=== PATIENT | male | born 1935 | race Caucasian/White ===

== ENCOUNTER → 2018-07-31 | Day surgery (SDC) | payer MEDICARE ==
[~2018-07-31] MED LIST: ALEVE220 MG PO; ALPHA LIPOIC ACID PO; ASA325 PO; ASPIR 8181 MG; ASPIRIN81 MG PO; CAPTOPRIL25 MG PO; CHLORTHALIDONE25 MG PO; FENTANYL CITRATE/PF 100MCG/2 ML INJ ONE; FISH OIL PO; FLUCONAZOLE100 MG PO; FUROSEMIDE40 MG PO; GABAPENTIN300 MG PO; GEMFIBROZIL600 MG PO; GLIMEPIRIDE2 MG PO; ICAPS TABLET1 EACH PO; LIDOCAINE HCL 2% LOCAL INJ 5 ML SDV VIAL INJ ONE; METOLAZONE2.5 MG PO; METOLAZONE5 MG PO; MULTIVITAMINS1 EAC7 PO; NITROSTAT0.4 MG SL; NRC7.5T PO; ONDN2V2 IV; PROPOFOL IV EMULSION 10 MG/ML 50 ML VIAL IV ONE; RANITIDINE HCL300 M1; ULTRAM 50MG50 MG PO; [UNRECOGNIZED DRUG - CODE] PO
--- OUTSIDE RECORDS SUMMARY | 2018-07-31 08:10 | XMS REPORT | Continuity of Care Document ---
Author Author [facility] Address Unknown Phone Unavailable Problems Problem Status Onset Date Classification Date Reported Comments Source DX: R07.2=PRECORDIAL PAIN DR RIVERA Active 05/02/2017 [facility] 782.3 - EDEMA Active 09/14/2013 [facility] [place] Arthritis Active Problem 05/17/2017 [facility] [place] Degenerative disc disease Active Problem 05/17/2017 [facility] [place] Diabetes mellitus Active Problem 05/17/2017 [facility] [place] Diabetic neuropathy Active Problem 05/17/2017 [facility] [place] Hypertension Active Problem 05/17/2017 [facility] [place] PRECORDIAL PAIN Active [facility] Medications Medication Details Route Status Patient Instructions Ordering Provider Order Date Source Allergies, Adverse Reactions, Alerts Substance Category Reaction Severity Reaction type Status Date Reported Comments Source Immunizations Immunization Date Given Site Status Last Updated Comments Source Results Order Name Results Value Reference Range Date Interpretation Comments Source Cardiac SPECT multi studies NM Cardiac SPECT multi studies NM Cardiac SPECT multi studies NM CLINICAL HISTORY: - chest pain; TECHNIQUE: 10 mCis of Technetium 99m Cardiolite were administered for the stress portion of the examination and 30 mCis for the resting study. The patient was given 0.4 mg of IV Lexiscan for the stress portion of the study FINDINGS: The SPECT images demonstrate very large defect involving the inferior wall of the left ventricle. There is some mild reversibility noted at the border of the inferior wall and the apex and the lateral wall. Most of the defect remains fixed on the resting images. CARDIAC PERFUSION STUDY: FINDINGS: The gated examination demonstrates severe inferior wall hypokinesis. The end-diastolic volume is estimated at 146 ml with end-systolic volume at 79 ml. The ejection fraction is calculated at 46 % . IMPRESSION: Largely fixed large defect is present in the inferior wall of left ventricle. There is minimal to mild reversibility at the border of the inferior wall and the apex and the lateral wall. Severe hypokinesis, inferior wall of left ventricle. SL: [id number] 05/14/2017 - - Read by: Cleve Mcguire MD Dictated Date/time: 05/14/17 16:44 Electronically Signed by: Cleve Mcguire MD 05/14/17 16:50 FINAL REPORT [facility] Abdominal Aorta with runoff CTA Abdominal Aorta with runoff CTA ABDOMEN/PELVIS/LOWER EXTREMITY CTA CLINICAL HISTORY: Peripheral vascular disease, unspecified circulatory system disorder, and bilateral lower extremity swelling. COMPARISON IMAGING: None. TECHNIQUE: Pre- and postcontrast volumetric images were obtained before and after the administration of intravenous contrast. Postcontrast images were acquired during the arterial phase. Data are displayed in multiplanar, volumetric, and MIP reconstructions DLP is 1887 mGy-cm. FINDINGS: Aorta: Mild multifocal calcified plaque extends throughout the aorta. There is no aortic aneurysm, dissection, or hemodynamically significant stenosis. A focal calcified plaque at the origin of the right renal artery narrows the lumen by approximately 40 to 50%. This is considered nonhemodynamically significant. The celiac axis, SMA, MONY, and left renal arteries are patent. RLE: Minimal to mild multifocal calcified plaque extends throughout the common iliac, external iliac, hypogastric, and common femoral arteries. Mild, calcified, multifocal and segmental plaque extends throughout the SFA. There is a severe focal mixed plaque in the mid popliteal artery that results in approximately 80 to 90% luminal narrowing. Severe mixed atherosclerotic plaque extends throughout all 3 runoff vessels. The posterior tibial artery is likely occluded just a few cm past its origin. Dorsalis pedis artery is patent. LLE: Minimal to mild multifocal calcified plaque is again noted throughout the common iliac, external iliac, hypogastric, and common femoral arteries. Mild mixed plaque is present throughout the SFA, less severe than seen on the right. Multifocal mixed plaque is noted throughout the popliteal artery, narrowing it by approximately 70% in its midportion. Runoff vessels demonstrate similar findings as those on the right. Nonvascular: Lung bases are clear. Liver, spleen, pancreas, right adrenal gland, and right kidney are unremarkable. There is a 10 mm nodule in the left adrenal gland and a 1.8 cm low-density lesion in the upper pole of left kidney. Neither of these are completely characterized on this exam. Dedicated CT imaging with and without contrast could be considered for further evaluation. Severe degenerative changes are seen throughout the spine. IMPRESSION: 1. Hemodynamically significant stenoses in both popliteal arteries. 2. Severe atherosclerotic disease throughout the runoff vessels of both calves. 3. Nonhemodynamically significant narrowing of the origin of the right renal artery. 3. Left adrenal nodule and left kidney lesion, incompletely characterized on this exam. 10/21/2013 - - Read by: Alexis Wooten Dictated Date/time: 10/21/13 13:39 Electronically Signed by: Alexis Wooten MD 10/21/13 14:17 FINAL REPORT LILIA Chea Extremity lower venous doppler bilat US Extremity lower venous doppler bilat US Exam: Bilateral lower extremity Doppler venous ultrasound. Reason for Exam: Pain and swelling Comparison Exam: None Discussion: Real-time grayscale, color Doppler imaging, and spectral waveform analysis was performed of the bilateral lower extremity deep venous system. There are no filling defects or lack of compressibility seen within the deep venous systems to suggest DVT. The waveforms are within normal limits and respond appropriately to augmentation. Impression: 1. Negative bilateral lower extremity Doppler venous ultrasound for DVT. 09/30/2013 - - Read by: Homer Erickson Dictated Date/time: 09/30/13 09:07 Electronically Signed by: Homer Erickson MD 09/30/13 09:07 FINAL REPORT LILIA [place] Extremity lower art Dopp bilat US w/o press Extremity lower art Dopp bilat US w/o press Bilateral lower extremity arterial Doppler, 09/30/2013. HISTORY: Bilateral leg numbness, pain and swelling. Diabetes mellitus, hypertension. Right lower extremity are Doppler demonstrates triphasic waveform in the right common femoral artery with peak systolic velocity of 82 cm/sec, raising the possibility of a right inflow stenosis. Heterogeneous plaque noted in the right superficial femoral artery with mild Doppler frequency shift to 146 cm/sec in the proximal right superficial femoral artery suggesting mild stenosis. Normal triphasic waveforms noted in the mid and distal right superficial femoral artery. Spectral broadening noted in the right popliteal artery without Doppler frequency shift. Dampened monophasic flow noted in the right anterior tibial artery with Doppler measurement of 31 cm/sec with mild increased flow velocity noted in the right dorsalis pedis artery. Spectral broadening without significant stenosis in the right posterior tibial artery. Left lower extremity arterial Doppler demonstrates triphasic waveform with reduced flow velocity of 74 cm/sec in the left common femoral artery suggesting inflow stenosis. Heterogeneous plaque noted in the left superficial femoral artery. Triphasic waveforms noted in the left superficial femoral artery and left popliteal artery without significant stenosis. Low velocity monophasic flow noted in the left posterior tibial artery with normal velocity flow noted in the left anterior tibial artery and left dorsalis pedis artery without Doppler frequency shift. CONCLUSION: Mildly reduced flow velocities in both common femoral arteries raise the possibility of inflow stenosis (bilateral aortoiliac disease). Mild bilateral lower extremity peripheral arterial disease, infrapopliteal predominant involving right anterior tibial artery and left posterior tibial artery. If renal function permits, recommend CTA of aorta with runoff. 09/30/2013 - - Read by: Jonathan Deleon Dictated Date/time: 09/30/13 09:26 Electronically Signed by: Jonathan Deleon MD 09/30/13 09:45 FINAL REPORT LILIA Mena Vital Signs Vital Sign Value Date Comments Source Height 182.88 cm 05/14/2017 [facility] BMI Calculated 32.62 05/14/2017 [facility] Weight 109.091 05/14/2017 [facility] Encounters Location Location Details Encounter Type Encounter Number Reason For Visit Attending Provider ADM Date DC Date Status Source OD [id number] 782.3 - EDEMA GRICELDA PEARCE 09/30/2013 09/30/2013 Active LILIA Mena [facility] Outpatient [id number] Leia Rivera Jr 05/14/2017 05/15/2017 [facility] Procedures Procedure Code Date Perfomer Comments Source Open reduction and fixation of fracture [id number] [facility] Open reduction and fixation of fracture<sup>1</sup> 832886669 as child [facility]
--- OUTSIDE RECORDS SUMMARY | 2018-07-31 08:10 | XMS REPORT | CCD ---
Author Author Auto Generated Organization [facility] [place] Address Unknown Phone Unavailable Care Team Providers Care Psychiatric Assistant Name Role Phone Davis Bryant CP Allergies, Adverse Reactions, Alerts Substance Reaction Status NKDA Active Problem List Condition Effective Dates Status Arthritis Active Degenerative disc disease Active Diabetes mellitus Active Diabetic neuropathy Active Hypertension Active
--- OUTSIDE RECORDS SUMMARY | 2018-07-31 08:10 | XMS REPORT | CCD ---
Author Author Auto Generated Organization [facility] [place] Address Unknown Phone Unavailable Care Team Providers Care Electro Winning Operator Name Role Phone Davis Bryant CP Allergies, Adverse Reactions, Alerts Substance Reaction Status NKDA Active Problem List Condition Effective Dates Status Arthritis Active Degenerative disc disease Active Diabetes mellitus Active Diabetic neuropathy Active Hypertension Active
--- OUTSIDE RECORDS SUMMARY | 2018-07-31 08:10 | XMS REPORT | Summary of Care ---
Author Author [facility] Organization [facility] Address Unknown Phone Unavailable Encounter HQ Leo(CHIQUITA) [id number] Date(s): 05/14/17 - 05/14/17 [facility] [address] [place] [address]- [phone] Discharge Disposition: Home or Self Care Attending Physician: Leia Munguia DO Referring Physician: Leia Munguia DO Vital Signs Most recent to 1 oldest [Reference Range]: Height 182.88 cm (05/14/17 9:12 AM) Weight 109.091 kg (05/14/17 9:12 AM) Body Mass Index 32.62 m2 (05/14/17 9:12 AM) Problem List Condition Effective Dates Status Health Status Informant Arthritis(Confirmed) Active Degenerative disc Active disease(Confirmed) Diabetes Active mellitus(Confirmed) Diabetic Active neuropathy(Confirmed ) Hypertension(Confirm Active ed) Allergies, Adverse Reactions, Alerts Substance Reaction Severity Status NKDA Active Medications No data available for this section Results No data available for this section Immunizations No data available for this section Procedures Procedure Date Related Diagnosis Body Site Open reduction and fixation of fracture Open reduction and fixation of fracture1 1as child Social History No data available for this section Assessment and Plan No data available for this section
[2018-07-31 09:19] LABS: BASOPHILS % 0.4 % (0.0-1.0); EOSINOPHILS # (AUTO) 0.2 (0.0-0.4); EOSINOPHILS % 2.6 % (0.0-6.0); HEMATOCRIT 34.2 % (38.2-49.6); HEMOGLOBIN 11.7 g/dL (14.0-18.0); LYMPHOCYTES # (AUTO) 0.8 (1.0-3.2); LYMPHOCYTES % 10.6 % (18.0-39.1); MEAN CORPUSCULAR HEMOGLOBIN 30.8 pg (28-32); MEAN CORPUSCULAR HGB CONC 34.2 g/dL (31-35); MONOCYTES % 12.7 % (4.4-11.3); NEUTROPHILS # (AUTO) 5.7 (2.1-6.9); NEUTROPHILS % 72.2 % (38.7-80.0); PLATELET COUNT 263 x10e3/uL (140-360); RED CELL DISTRIBUTION WIDTH 13.8 % (11.7-14.4)
[2018-07-31 10:45] VITALS: BP 145/79
== END | disposition home or self-care (01) ==
LOC: OR 08:08
PROVIDERS: ATTEND Internal Medicine Gastroenterology
DX: K29.70 Gastritis, unspecified, without bleeding (principal); K31.89 Other diseases of stomach and duodenum; Z71.3 Dietary counseling and surveillance; R63.4 Abnormal weight loss; E11.9 Type 2 diabetes mellitus without complications; E66.3 Overweight; I10 Essential (primary) hypertension; I44.0 Atrioventricular block, first degree; Z79.82 Long term (current) use of aspirin; Z79.84 Long term (current) use of oral hypoglycemic drugs; Z68.28 Body mass index [BMI] 28.0-28.9, adult; Z87.891 Personal history of nicotine dependence
CPT/HCPCS: 36415; 43239; 82948; 85025; 88305; 88312; 93005; J2001

== ENCOUNTER 2019-05-17 14:22 | Inpatient (IN) | payer MEDICARE ==
[~2019-05-17] VITALS: Ht 185.4 cm; Wt 106.6 kg
[~2019-05-17 14:22] MED LIST changes: -FENTANYL CITRATE/PF 100MCG/2 ML INJ ONE; -LIDOCAINE HCL 2% LOCAL INJ 5 ML SDV VIAL INJ ONE; -PROPOFOL IV EMULSION 10 MG/ML 50 ML VIAL IV ONE
--- OUTSIDE RECORDS SUMMARY | 2019-05-17 14:26 | XMS REPORT | Continuity of Care Document ---
Author Author [facility] Address Unknown Phone Unavailable Care Team Providers Care Global Project Manager Name Role Phone [employer] Information [employer] Unavailable Unavailable Problems Problem Status Onset Date Classification Date Reported Comments Source DX: R07.2=PRECORDIAL PAIN DR RIVERA Active 05/02/2017 [facility] 782.3 - EDEMA Active 09/14/2013 [facility] [place] Arthritis (disorder) Active Problem 05/17/2017 [facility] [place] Degeneration of intervertebral disc (disorder) Active Problem 05/17/2017 [facility] [place] Diabetes mellitus (disorder) Active Problem 05/17/2017 [facility] [place] Diabetic neuropathy (disorder) Active Problem 05/17/2017 [facility] [place] Hypertensive disorder, systemic arterial (disorder) Active Problem 05/17/2017 [facility] [place] PRECORDIAL PAIN Active [facility] Medications No Data Provided for This Section Allergies, Adverse Reactions, Alerts No Known Medication Allergies Immunizations No Data Provided for This Section Results No Data Provided for This Section Pathology Reports No Data Provided for This Section Diagnostic Reports Report Value Date Source Cardiac SPECT multi studies NM Cardiac [...] hypokinesis, inferior wall of left ventricle. SL: [id number] 05/14/2017 [facility] Abdominal Aorta with runoff CTA ABDOMEN/PELVIS/LOWER EXTREMITY [...] lesion, incompletely characterized on this exam. 10/21/2013 JESIKA Mena Extremity lower venous doppler bilat US Exam: [...] extremity Doppler venous ultrasound for DVT. 09/30/2013 LILIA Mena Extremity lower art Dopp bilat US w/o [...] recommend CTA of aorta with runoff. 09/30/2013 LILIA Mena Consultation Notes No Data Provided for This Section Discharge Summaries No Data Provided for This Section History and Physicals No Data Provided for This Section Vital Signs Vital Sign Value Date Comments Source Height 182.88 cm 05/14/2017 [facility] BMI Calculated 32.62 05/14/2017 [facility] Weight 109.091 05/14/2017 [facility] Encounters Location Location Details Encounter Type Encounter Number Reason For Visit Attending Provider ADM Date DC Date Status Source OD [id number] 782.3 - EDEMA GRICELDA PEARCE 09/30/2013 09/30/2013 Active LILIA Mena [facility] Outpatient [id number] Leia Rivera Jr 05/14/2017 05/15/2017 [facility] Procedures Procedure Code Date Perfomer Comments Source Open reduction and fixation of fracture [id number] [facility] Open reduction and fixation of fracture<sup>1</sup> 571365368 as child [facility] Assessment and Plan No Data Provided for This Section Plan of Care No Data Provided for This Section Social History Social History Date Source No data available for this section 05/15/2017 [facility] Family History No Data Provided for This Section Advance Directives No Data Provided for This Section Functional Status No Data Provided for This Section
--- OUTSIDE RECORDS SUMMARY | 2019-05-17 14:27 | XMS REPORT | Continuity of Care Document ---
Author Author [employer] Address Unknown Phone Unavailable Care Team Providers Care Color Specialist Name Role Phone [employer] Unavailable Unavailable Problems Problem Status Onset Date Classification Date Reported Comments Source DX: R07.2=PRECORDIAL PAIN DR RIVERA Active 05/02/2017 [facility] 782.3 - EDEMA Active 09/14/2013 [facility] [place] Arthritis (disorder) Active Problem 05/17/2017 [facility] [place] Degeneration of intervertebral disc (disorder) Active Problem 05/17/2017 [facility] [place] Diabetes mellitus (disorder) Active Problem 05/17/2017 [facility] [place] Diabetic neuropathy (disorder) Active Problem 05/17/2017 [facility] [place] Hypertensive disorder, systemic arterial (disorder) Active Problem 05/17/2017 [facility] [place] PRECORDIAL PAIN Active [facility] Medications No Data Provided for This Section [...] hypokinesis, inferior wall of left ventricle. SL: [id number] 05/14/2017 [facility] Abdominal Aorta with runoff CTA [...] Date Comments Source Height 182.88 cm 05/14/2017 [facility] BMI Calculated 32.62 05/14/2017 [facility] Weight 109.091 05/14/2017 [facility] Encounters Location Location Details Encounter Type Encounter Number Reason For Visit Attending Provider ADM Date DC Date Status Source OD [id number] 782.3 - EDEMA GRICELDA PEARCE 09/30/2013 09/30/2013 Active LILIA Mena [facility] Outpatient [id number] Leia Rivera Jr 05/14/2017 05/15/2017 [facility] Procedures Procedure Code Date Perfomer Comments Source Open reduction and fixation of fracture [id number] [facility] Open reduction and fixation of fracture<sup>1</sup> 146650830 as child [facility] Assessment and Plan No Data Provided for This Section Plan of Care No Data Provided for This Section Social History Social History Date Source No data available for this section 05/15/2017 [facility] Family History No Data Provided for This Section Advance Directives No Data Provided for This Section Functional Status No Data Provided for This Section
[2019-05-17 15:08] LABS: BASOPHILS # (AUTO) 0.1 (0.0-0.1); BASOPHILS % 0.6 % (0.0-1.0); EOSINOPHILS # (AUTO) 0.2 (0.0-0.4); EOSINOPHILS % 1.8 % (0.0-6.0); HEMATOCRIT 38.7 % (38.2-49.6); HEMOGLOBIN 13.1 g/dL (14.0-18.0); LYMPHOCYTES # (AUTO) 1.1 (1.0-3.2); LYMPHOCYTES % 12.8 % (18.0-39.1); MEAN CORPUSCULAR HEMOGLOBIN 29.8 pg (28-32); MEAN CORPUSCULAR HGB CONC 33.9 g/dL (31-35); MEAN CORPUSCULAR VOLUME 88.2 fL (81-99); MONOCYTES # (AUTO) 1.2 (0.2-0.8); MONOCYTES % 14.9 % (4.4-11.3); NEUTROPHILS # (AUTO) 5.6 (2.1-6.9); NEUTROPHILS % 68.3 % (38.7-80.0); PLATELET COUNT 231 x10e3/uL (140-360); RED BLOOD COUNT 4.39 x10e6/uL (4.3-5.7); RED CELL DISTRIBUTION WIDTH 14.1 % (11.7-14.4)
[2019-05-17 15:18] LABS: INR 0.98; PROTHROMBIN TIME 13.5 seconds (11.9-14.5)
[2019-05-17 15:26] LABS: ALBUMIN 3.7 g/dL (3.5-5.0); ALBUMIN/GLOBULIN RATIO 1.1 (0.8-2.0); CALCIUM 9.7 mg/dL (8.4-10.2); CREATININE, SERUM 1.95 mg/dL (0.72-1.25)
[2019-05-17] MEDS ORDERED: SODIUM CHLORIDE 0.9% 1000ML 1,000 ML IV STA (15:28)
[2019-05-17 15:32] LABS: CREATINE KINASE MB 1.1 ng/mL (0-5.0)
[2019-05-17] MEDS ORDERED: SODIUM CHLORIDE 0.9% 1000ML 1,000 ML ONE (15:35)
[2019-05-17 15:39] LABS: B-TYPE NATRIURETIC PEPTIDE2 158.3 pg/mL (0-100)
--- NOTE | 2019-05-17 15:43 | Diagnostic Imaging Report ---
Examination: Single AP view of the chest. COMPARISON: None. INDICATION: Cellulitis IMPRESSION: 1. Lines and Tubes: None 2. Lungs are well-inflated. Elevation of the right hemidiaphragm, which may be due to eventration. Mild atelectatic changes in the right lower lobe. No consolidation or pulmonary edema. 3-4 mm rounded radiopaque densities in the right upper lobe may represent pulmonary nodules or calcified granulomas. Prior films, if available, would be helpful for comparison. If no prior films can be obtained, recommend follow-up chest PA and lateral in 3 months to document stability. 3. Cardiomediastinal silhouette is normal. Mild central congestion. 4. No acute bony abnormalities. Signed by: Dr. Jimmie Macdonald M.D. on 05/17/2019 3:39 PM
[2019-05-17] MEDS: VANCOMYCIN 1GM/NS 250 ML 250 ML IV SCH (15:48)
[2019-05-17] MEDS ORDERED: ONDANSETRON HCL INJ 2MG/ML 2ML 2 MG/ML VIAL IV PRN (16:30)
[2019-05-17] MEDS ORDERED: ACETAMINOPHEN 325 MG TAB PO PRN (16:30)
[2019-05-17] MEDS ORDERED: SODIUM CHLORIDE 0.9% 1000ML 1,000 ML IV ONE (16:30)
[2019-05-17] MEDS ORDERED: DEXTROSE 50% SYRINGE 50 ML IV PRN (16:30)
[2019-05-17] MEDS ORDERED: DOXAZOSIN MESYLA2 MG PO (16:48)
[2019-05-17] MEDS ORDERED: ISOSORBIDE MONO60 MG PO (16:48)
[2019-05-17] MEDS ORDERED: ULTRAM50 MG PO (16:48)
[2019-05-17] MEDS ORDERED: UNISOM SLEEP AI25 MG PO (16:48)
[2019-05-17] MEDS ORDERED: GLIMEPIRIDE2 MG PO (16:48)
[2019-05-17] MEDS ORDERED: METFORMIN HCL500 M2 PO (16:48)
[2019-05-17] MEDS ORDERED: METHOCARBAMOL750 MG PO (16:48)
[2019-05-17] MEDS ORDERED: LIOTHYRONINE SO5 MCG PO (16:48)
[2019-05-17] MEDS ORDERED: AREDS PO (16:48)
[2019-05-17 16:52] LABS: BILIRUBIN,URINE NEGATIVE (NEGATIVE); CLARITY,URINE CLEAR (CLEAR); COLOR,URINE YELLOW (YELLOW); KETONES,URINE NEGATIVE (NEGATIVE); LEUKOCYTE ESTERASE ,URINE NEGATIVE (NEGATIVE); NITRITE,URINE NEGATIVE (NEGATIVE); PROTEIN,URINE DIPSTICK NEGATIVE (NEGATIVE); URINE UROBILINOGEN 0.2 mg/dL (0.2 - 1)
--- OUTSIDE RECORDS SUMMARY | 2019-05-17 16:56 | XMS REPORT ---
Author [facility] Address Unknown Phone Unavailable Care Team Providers Care Dredge Pump Operator Name Role Phone [employer] JACKSON Unavailable Unavailable Problems This patient has no known problems. Allergies, Adverse Reactions, Alerts This patient has no known allergies or adverse reactions. Medications This patient has no known medications. Results Test Description Test Time Test Comments Text Results Atomic Results Result Comments CHEST SINGLE (PORTABLE) 2019-05-17 15:35:00 [facility] [address] [place] [address] Patient Name: PASCUAL WHALEN MR #: [id number] : 1935 Age/Sex: 83/M Req #: [id number] Adm Physician: Ordered by: MONTSE CHI FINANCIAL ADVOCATE Report #: [id number] Location: ER Room/Bed: Procedure: [id number] DX/CHEST SINGLE (PORTABLE) Exam Date: 05/17/19 Exam Time: 1510 REPORT STATUS: Signed Examination: Single AP view of the chest. CO MPARISON: None. INDICATION: Cellulitis IMPRESSION: 1. Lines and Tubes: None 2. Lungs are well-inflated. Elevation of the right hemidiaphragm, which may be due to eventration. Mild atelectatic changes in the right lower lobe. No consolidation or pulmonary edema. 3-4 mm rounded radiopaque densities in the right upper lobe may represent pulmonary nodules or calcified granulomas. Prior films, if available, would be helpful for comparison. If no prior films can be obtained, recommend follow-up chest PA and lateral in 3 months to document stability. 3. Cardiomediastinal silhouette is normal. Mild central congestion. 4. No acute bony abnormalities. Signed by: Dr. Rei Macdonald M.D. on 05/17/2019 3:39 PM Dictated By: REI MACDONALD MD [id number] Transcribed By: SHOBHA on 05/17/19 1539 COPY TO: MONTSE CHI NP
--- OUTSIDE RECORDS SUMMARY | 2019-05-17 16:56 | XMS REPORT | Continuity of Care Document ---
Author Author [employer] Address Unknown Phone Unavailable Care Team Providers Care Combination Window Installer Name Role Phone [employer] Information [employer] Unavailable Unavailable Problems Problem Status Onset Date Classification Date Reported Comments Source DX: R07.2=PRECORDIAL PAIN DR RIVERA Active 05/02/2017 [facility] 782.3 - EDEMA Active 09/14/2013 [facility] [place] Arthritis (disorder) Active Problem 05/17/2017 [facility] [place] Degeneration of intervertebral disc (disorder) Active Problem 05/17/2017 [facility] [place] Diabetes mellitus (disorder) Active Problem 05/17/2017 [facility] [place] Diabetic neuropathy (disorder) Active Problem 05/17/2017 [facility] [place] Hypertensive disorder, systemic arterial (disorder) Active Problem 05/17/2017 [facility] [place] PRECORDIAL PAIN Active [facility] Medications No Data Provided for This Section [...] hypokinesis, inferior wall of left ventricle. SL: [id number] 05/14/2017 [facility] Abdominal Aorta with runoff CTA [...] Date Comments Source Height 182.88 cm 05/14/2017 [facility] BMI Calculated 32.62 05/14/2017 [facility] Weight 109.091 05/14/2017 [facility] Encounters Location Location Details Encounter Type Encounter Number Reason For Visit Attending Provider ADM Date DC Date Status Source OD [id number] 782.3 - EDEMA GRICELDA PEARCE 09/30/2013 09/30/2013 Active LILIA Mena [facility] Outpatient [id number] Leia Rivera Jr 05/14/2017 05/15/2017 [facility] Procedures Procedure Code Date Perfomer Comments Source Open reduction and fixation of fracture [id number] [facility] Open reduction and fixation of fracture<sup>1</sup> 777815278 as child [facility] Assessment and Plan No Data Provided for This Section Plan of Care No Data Provided for This Section Social History Social History Date Source No data available for this section 05/15/2017 [facility] Family History No Data Provided for This Section Advance Directives No Data Provided for This Section Functional Status No Data Provided for This Section
[2019-05-17 17:04] LABS: BACTERIA,URINE RARE /HPF; EPITHELIAL CELLS,URINE RARE /LPF; RBC,URINE 0-5 /HPF (0-5); WBC,URINE (MAN) 0-5 /HPF (0-5)
[2019-05-17] MEDS: INSULIN LISPRO 100 UNIT/1 ML 3ML VIAL SQ SCH ×2 (17:07→20:40)
[2019-05-17 17:56] VITALS: BP 159/77
[2019-05-17] MEDS: PIPERACILLIN/TAZO 2.25 GM 50 ML IV SCH ×2 (18:00→23:51)
[2019-05-17 18:01] VITALS: BP 159/77
[2019-05-17 20:00] VITALS: BP 133/65
[2019-05-17 20:32] VITALS: BP 133/65
[2019-05-17] MEDS ORDERED: FUROSEMIDE 40 MG TAB PO ONE (21:00)
[2019-05-17] MEDS ORDERED: METFORMIN HCL 850 MG TAB PO ONE (21:00)
[2019-05-17] MEDS ORDERED: GEMFIBROZIL 600 MG TAB PO SCH (21:00)
[2019-05-17] MEDS ORDERED: GABAPENTIN 300 MG CAP PO ONE (21:15)
[2019-05-17] MEDS: DOXAZOSIN MESYLATE 2 MG TAB PO SCH (21:26)
[2019-05-17] MEDS: METHOCARBAMOL 750 MG TAB PO SCH (21:26)
[2019-05-17] MEDS ORDERED: PIPER-TAZ 3.375 GM 50 ML IV SCH (22:00)
[2019-05-17 22:18] VITALS: BP 133/65
[2019-05-17] MEDS: TRAMADOL HCL 50 MG TAB PO PRN (22:51)
[2019-05-18] VITALS (10 sets, daily range): BP systolic 122–153; BP diastolic 60–87
[2019-05-18] MEDS: PIPERACILLIN/TAZO 2.25 GM 50 ML IV SCH ×3 (04:23→18:20)
[2019-05-18] MEDS: FUROSEMIDE 40 MG TAB PO SCH ×2 (04:23→17:20)
--- NOTE | 2019-05-18 04:24 | NUR ---
PATIENT REFUSED TO TAKE HIS LASIX STATING HE'S PEEING TOO MUCH ALREADY.
[2019-05-18 05:29] LABS: BASOPHILS % 0.5 % (0.0-1.0); EOSINOPHILS # (AUTO) 0.2 (0.0-0.4); EOSINOPHILS % 2.7 % (0.0-6.0); HEMATOCRIT 34.2 % (38.2-49.6); HEMOGLOBIN 11.4 g/dL (14.0-18.0); LYMPHOCYTES % 12.2 % (18.0-39.1); MEAN CORPUSCULAR HEMOGLOBIN 29.7 pg (28-32); MEAN CORPUSCULAR HGB CONC 33.3 g/dL (31-35); MEAN CORPUSCULAR VOLUME 89.1 fL (81-99); MONOCYTES % 12.8 % (4.4-11.3); NEUTROPHILS # (AUTO) 5.7 (2.1-6.9); NEUTROPHILS % 70.1 % (38.7-80.0); PLATELET COUNT 201 x10e3/uL (140-360); RED BLOOD COUNT 3.84 x10e6/uL (4.3-5.7); RED CELL DISTRIBUTION WIDTH 14.2 % (11.7-14.4)
[2019-05-18 05:48] LABS: ANION GAP 12.9 mmol/L (8-16); CALCIUM 8.6 mg/dL (8.4-10.2); CREATININE, SERUM 1.43 mg/dL (0.72-1.25)
[2019-05-18 05:53] LABS: POTASSIUM 2.9 mmol/L (3.5-5.1)
[2019-05-18] MEDS ORDERED: POTASSIUM CHLORIDE 20 MEQ TAB CR PO ONE ×2 (06:30→10:00)
[2019-05-18] MEDS: INSULIN LISPRO 100 UNIT/1 ML 3ML VIAL SQ SCH ×4 (08:00→20:43)
[2019-05-18] MEDS: GLIMEPIRIDE 2 MG TAB PO SCH (09:04)
[2019-05-18] MEDS: METOLAZONE 5 MG TAB PO SCH (09:04)
[2019-05-18] MEDS: ISOSORBIDE MONONITRATE 30 MG TAB CR PO SCH (09:04)
[2019-05-18] MEDS: ASPIRIN 81 MG CHEW TAB PO SCH (09:04)
[2019-05-18] MEDS: GEMFIBROZIL 600 MG TAB PO SCH ×2 (09:04→17:20)
[2019-05-18] MEDS: GABAPENTIN 300 MG CAP PO SCH ×2 (09:04→17:20)
[2019-05-18] MEDS: METFORMIN HCL 500 MG TAB PO SCH ×2 (09:05→17:20)
--- NOTE | 2019-05-18 11:27 | NUR ---
PREFERS INPATIENT REHAB IF DOESNT QUALIFY FOR THAT HE WANTS TO GO HOME WITH HOME HEALTH FOR THERAPY TO COME TO HOUSE
--- NOTE | 2019-05-18 11:28 | NUR ---
DAUGHTER GALE QUIROS TO REACH IF NOT HERE IS [phone]
[2019-05-18] MEDS: VANCOMYCIN 1GM/NS 250 ML 250 ML IV SCH (14:50)
[2019-05-18] MEDS: METHOCARBAMOL 750 MG TAB PO SCH (20:43)
[2019-05-18] MEDS: DOXAZOSIN MESYLATE 2 MG TAB PO SCH (20:43)
[2019-05-19] VITALS (7 sets, daily range): BP systolic 120–142; BP diastolic 63–74
[2019-05-19] MEDS: PIPERACILLIN/TAZO 2.25 GM 50 ML IV SCH ×4 (00:03→17:30)
[2019-05-19 05:43] LABS: ALBUMIN 3.3 g/dL (3.5-5.0); ALBUMIN/GLOBULIN RATIO 1.1 (0.8-2.0); ANION GAP 13.2 mmol/L (8-16); CALCIUM 9.3 mg/dL (8.4-10.2); CREATININE, SERUM 1.24 mg/dL (0.72-1.25); MAGNESIUM 1.9 MG/DL (1.3-2.1); POTASSIUM 3.2 mmol/L (3.5-5.1)
[2019-05-19] MEDS: FUROSEMIDE 40 MG TAB PO SCH ×2 (05:44→17:30)
--- NOTE | 2019-05-19 06:32 | NUR ---
NEW ROUTINE CONSULT FOR DR. SPAULDING CALLED AT THIS TIME. VOICEMAIL LEFT AT THIS TIME WITH CALL BACK NUMBER.
--- NOTE | 2019-05-19 07:00 | NUR ---
REPORT GIVEN TO ELOISE SOW AT THIS TIME.
[2019-05-19] MEDS: INSULIN LISPRO 100 UNIT/1 ML 3ML VIAL SQ SCH ×4 (07:30→21:05)
[2019-05-19] MEDS: GEMFIBROZIL 600 MG TAB PO SCH ×2 (09:00→17:30)
[2019-05-19] MEDS: METFORMIN HCL 500 MG TAB PO SCH ×2 (09:49→17:30)
[2019-05-19] MEDS: ASPIRIN 81 MG CHEW TAB PO SCH (09:49)
[2019-05-19] MEDS: GLIMEPIRIDE 2 MG TAB PO SCH (09:49)
[2019-05-19] MEDS: ISOSORBIDE MONONITRATE 30 MG TAB CR PO SCH (09:50)
[2019-05-19] MEDS: METOLAZONE 5 MG TAB PO SCH (09:50)
[2019-05-19] MEDS: MONTELUKAST SODIUM 10 MG TAB PO SCH (09:50)
[2019-05-19] MEDS: GABAPENTIN 300 MG CAP PO SCH ×2 (09:50→17:30)
[2019-05-19] MEDS: VANCOMYCIN 1GM/NS 250 ML 250 ML IV SCH (15:15)
--- NOTE | 2019-05-19 19:46 | Consultation ---
DATE OF CONSULTATION: 05/19/2019 Cardiology Consultation Note REASON FOR CONSULT: Lower extremity cellulitis and peripheral arterial disease. CHIEF COMPLAINT: Lower extremity cellulitis and pain. HISTORY OF PRESENT ILLNESS: The patient is an 83-year-old male with known previous history of heart disease, known to me, who presented with dehydration, acute kidney injury, lactic acidosis, and lower extremity cellulitis. Lower extremity Doppler showed bilateral peripheral arterial disease, right greater than left. We are consulted for treatment of this. PAST MEDICAL HISTORY: 1. Hypertension. 2. Diabetes. 3. Chronic kidney disease. FAMILY HISTORY: Noncontributory. OUTPATIENT MEDICATIONS: Reviewed. ALLERGIES: NO KNOWN DRUG ALLERGIES. REVIEW OF SYSTEMS: As per HPI, otherwise negative. OBJECTIVE: VITAL SIGNS: Temperature afebrile, pulse 68, respiratory rate 20, blood pressure 138/71, and saturating 96%. GENERAL: Elderly man, in no acute distress. CARDIOVASCULAR: Regular rate and rhythm. No murmurs, rubs, or gallops. LUNGS: Clear to auscultation bilaterally. ABDOMEN: Soft, nontender, nondistended. No masses. LABORATORY DATA: Reviewed. Creatinine is now improved to 1.24, GFR 55. Troponins, negative. IMAGING DATA: Reviewed. Chest x-ray shows normal cardiomediastinal silhouette. No pulmonary edema. Lower extremity Doppler show moderate focal stenosis and severe monophasic disease of right SFA and below-knee vessels respectively, sulcal focal stenosis of the left popliteal artery. ASSESSMENT AND PLAN: 1. Lower extremity wounds. 2. Lower extremity peripheral arterial disease. 3. Hypertension. PLAN: The patient has bilateral lower extremity wounds and peripheral arterial disease by Doppler. We will plan for peripheral angiogram and intervention once renal function has stabilized, likely tomorrow or . We will discuss with the patient and family and see if they are amenable. Thank you for this consult. We will continue to follow. MD HEMA Marion/VASILE /[id number]
[2019-05-19] MEDS: METHOCARBAMOL 750 MG TAB PO SCH (21:05)
[2019-05-19] MEDS: DOXAZOSIN MESYLATE 2 MG TAB PO SCH (21:05)
[2019-05-19] MEDS: ZOLPIDEM TARTRATE 5 MG TAB PO PRN (23:03)
[2019-05-20] VITALS (9 sets, daily range): BP systolic 118–130; BP diastolic 59–69
[2019-05-20] MEDS: PIPERACILLIN/TAZO 2.25 GM 50 ML IV SCH ×4 (01:30→18:02)
[2019-05-20] MEDS: FUROSEMIDE 40 MG TAB PO SCH ×2 (06:14→18:00)
--- NOTE | 2019-05-20 07:24 | NUR ---
PATIENT IN BED RESTING WITH EYES CLOSED, NO RESPIRATORY DISTRESS OBSERVED. SKIN TEARS TO LOWER EXTREMITIES WITH SOME REDNESS AND SWELLING. BED IN LOWER POSITION, CALL LIGHT AT REACH.
[2019-05-20] MEDS: INSULIN LISPRO 100 UNIT/1 ML 3ML VIAL SQ SCH ×4 (07:30→20:16)
[2019-05-20] MEDS: GEMFIBROZIL 600 MG TAB PO SCH ×2 (08:00→16:30)
[2019-05-20] MEDS: METFORMIN HCL 500 MG TAB PO SCH ×2 (08:49→17:12)
[2019-05-20] MEDS: GLIMEPIRIDE 2 MG TAB PO SCH (08:49)
[2019-05-20] MEDS: GABAPENTIN 300 MG CAP PO SCH ×2 (10:01→17:12)
[2019-05-20] MEDS: METOLAZONE 5 MG TAB PO SCH (10:01)
[2019-05-20] MEDS: ISOSORBIDE MONONITRATE 30 MG TAB CR PO SCH (10:01)
[2019-05-20] MEDS: ASPIRIN 81 MG CHEW TAB PO SCH (10:01)
[2019-05-20] MEDS: MONTELUKAST SODIUM 10 MG TAB PO SCH (10:01)
[2019-05-20] MEDS ORDERED: ONDANSETRON HCL 4 MG ORAL DISINTEGRATING TAB PO PRN (11:00)
--- NOTE | 2019-05-20 11:18 | NUR ---
EDUCATED ABOUT IMM, SIGNED, FILED IN CHART, WITH COPY LEFT WITH FAMILY AT BEDSIDE.
--- NOTE | 2019-05-20 13:05 | NUR ---
PATIENT WHEELED IN THE HALLWAY BY FAMILY MEMBERS, NO COMPLAIN VOICED. WILL CONTINUE TO MONITOR.
[2019-05-20] MEDS: VANCOMYCIN 1GM/NS 250 ML 250 ML IV SCH (15:25)
--- NOTE | 2019-05-20 16:13 | NUR ---
PATIENT C/O NAUSEA, PRN ZOFRAN GIVEN ORDERED. PATIENT REASSESSED, NO MORE C/O NAUSEA. WILL CLOSELY MONITOR.
--- NOTE | 2019-05-20 18:02 | Progress Note ---
DATE: 05/20/2019 Cardiology Progress Note SUBJECTIVE: No major events overnight. OBJECTIVE: VITAL SIGNS: Temperature 97.7, pulse 75, respiratory rate 20, blood pressure 119/63, saturating 94% on nasal cannula. GENERAL: Thin white man, elderly, no acute distress. CARDIOVASCULAR: Regular rate and rhythm. No murmurs, rubs, or gallops. LUNGS: Clear to auscultation bilaterally. ABDOMEN: Soft, nontender, nondistended. NEURO AND PSYCH: Alert and oriented to person, place, and time. Normal affect. INPATIENT MEDICATIONS: Reviewed. LABORATORY DATA: Reviewed. TELEMETRY DATA: Reviewed, shows normal sinus rhythm. ASSESSMENT: 1. Lower extremity cellulitis. 2. Lower extremity peripheral arterial disease. 3. Hypertension. PLAN: Discussed with the patient and his daughter regarding his PAD, although he does have significant PAD in bilateral lower extremities. Does not have any ulcers in his feet. He has some scabbed over wounds in his shins as well as some mild cellulitis, which is improving rapidly with IV antibiotics. The patient has neuropathy and is unable to walk due to this, so does not have any significant claudication symptoms either. Given all these concerns, there is no need for peripheral angiography or intervention at this time. Discussed with the patient and the daughter that if he ever develops any changes in his feet or any wounds that do not heal, he may require a peripheral angiography in the future. Okay to be discharged from a cardiovascular standpoint once cellulitis has been medically treated per primary team. Thank you for this consult. We will continue to follow. MD HEMA Marino/VASILE /[id number]
[2019-05-20] MEDS: METHOCARBAMOL 750 MG TAB PO SCH (20:16)
[2019-05-20] MEDS: DOXAZOSIN MESYLATE 2 MG TAB PO SCH (20:16)
--- NOTE | 2019-05-20 21:10 | NUR ---
pt o2 sat 88-89 on RA, attempted to put o2 on pt and pt stated "i dont need oxygen", informed pt of o2 sat and that o2 would improve it, pt stated "i know but im not gonna wear it", call light in reach, no s/s resp distress or SOB
[2019-05-20] MEDS: ZOLPIDEM TARTRATE 5 MG TAB PO PRN (22:02)
[2019-05-20] MEDS: TRAMADOL HCL 50 MG TAB PO PRN (22:29)
[2019-05-21] VITALS (9 sets, daily range): BP systolic 115–186; BP diastolic 59–72
[2019-05-21] MEDS: PIPERACILLIN/TAZO 2.25 GM 50 ML IV SCH ×5 (00:29→23:26)
[2019-05-21] MEDS: FUROSEMIDE 40 MG TAB PO SCH ×2 (05:33→18:37)
--- NOTE | 2019-05-21 07:09 | Discharge Summary ---
DISCHARGE DIAGNOSES: 1. Bilateral lower extremity cellulitis, right worse than left. 2. Peripheral arterial disease. 3. Diabetes. 4. Chronic kidney disease stage 3. 5. Hypertension. 6. Neuropathy. HISTORY OF PRESENT ILLNESS: The patient is a gentleman, who presented with bilateral lower extremity cellulitis, right worse than left for a few days. He was brought in and placed on IV antibiotics with significant improvement of the cellulitis on a daily basis. He states he was having no pain or discomfort. We did do arterial Dopplers that show significant moderate obstructive disease that may be severe. So, he was seen by Dr. Silverio, who originally is going to do an angiogram on day 1. He talked to the patient and found out that the patient is wheelchair-bound and not having any claudication and no open ulcerations of the feet, that the patient as well as his daughter as well as Dr. Silverio decided to elect at this time to not do the procedure due to its risks and if necessary, it could be done as an outpatient if things do not improve. The patient made significant improvement. We are going to hold off at this time on the angiogram and the patient was really wanting to go home, so he was given p.o. Keflex 500 mg b.i.d. for 14 more days and discharged home with continuation of home medications. He will follow up in 2 weeks with me. Please see hospital chart for full details. MD MARVIN Lynn/VASILE /[id number]
--- NOTE | 2019-05-21 07:10 | NUR ---
pt awake resp even and unlabored at this time no distress noted at this time, able to make needs known, call light in reach.
[2019-05-21] MEDS: INSULIN LISPRO 100 UNIT/1 ML 3ML VIAL SQ SCH ×4 (07:30→20:33)
[2019-05-21] MEDS: METFORMIN HCL 500 MG TAB PO SCH ×2 (08:36→16:45)
[2019-05-21] MEDS: GLIMEPIRIDE 2 MG TAB PO SCH (08:36)
[2019-05-21] MEDS: ASPIRIN 81 MG CHEW TAB PO SCH (08:36)
[2019-05-21] MEDS: GEMFIBROZIL 600 MG TAB PO SCH ×2 (08:36→16:45)
[2019-05-21] MEDS: METOLAZONE 5 MG TAB PO SCH (08:37)
[2019-05-21] MEDS: MONTELUKAST SODIUM 10 MG TAB PO SCH (08:37)
[2019-05-21] MEDS: GABAPENTIN 300 MG CAP PO SCH ×2 (08:37→16:46)
[2019-05-21] MEDS: ISOSORBIDE MONONITRATE 30 MG TAB CR PO SCH (08:37)
--- NOTE | 2019-05-21 09:47 | NUR ---
CASE MANAGEMENT CALLED BY NURSE STATING PT IS DISCHARGED HOME AND DAUGHTERS ARE REFUSING TO TAKE PT HOME BECAUSE "HE CAN'T STAND" CM MET WITH PT; HE IS REFUSING TO MOVE IN WITH FAMILY; WANTS TO STAY IN HIS OWN HOME PT PT AND DTRS AT BEDSIDE PT FALLS 1-2 TIMES A MONTH DURING TRANSFERS AGREEABLE TO HOME HEALTH [facility]ARE CALLED DR PEARCE AND REC'D ORDER FOR P.T. EVAL FOR SAFE TRANSFERS CM TO FOLLOW AFTER P.T. EVAL
--- NOTE | 2019-05-21 14:42 | NUR ---
PT SIGNED CHOICE FOR [facility], [address] [place], [facility] [id number], , FAXED CLINICALS FOR AUTH, COMPLETED RTF AND PASRR TO BE FILED IN RECORD AND PUT WITH PACKET TO GO TO FACILITY.
[2019-05-21] MEDS: VANCOMYCIN 1GM/NS 250 ML 250 ML IV SCH (15:14)
--- NOTE | 2019-05-21 19:03 | NUR ---
report given to oncoming nurse for continued care.
[2019-05-21] MEDS: METHOCARBAMOL 750 MG TAB PO SCH (20:32)
[2019-05-21] MEDS: DOXAZOSIN MESYLATE 2 MG TAB PO SCH (20:32)
[2019-05-22] MEDS: ZOLPIDEM TARTRATE 5 MG TAB PO PRN (00:05)
[2019-05-22 05:12] VITALS: BP 119/63
[2019-05-22] MEDS: FUROSEMIDE 40 MG TAB PO SCH (05:38)
[2019-05-22] MEDS: PIPERACILLIN/TAZO 2.25 GM 50 ML IV SCH ×2 (05:38→11:59)
[2019-05-22 06:41] LABS: BASOPHILS % 0.3 % (0.0-1.0); EOSINOPHILS # (AUTO) 0.6 (0.0-0.4); EOSINOPHILS % 5.3 % (0.0-6.0); HEMOGLOBIN 13.1 g/dL (14.0-18.0); LYMPHOCYTES # (AUTO) 1.1 (1.0-3.2); LYMPHOCYTES % 9.4 % (18.0-39.1); MEAN CORPUSCULAR HEMOGLOBIN 30.2 pg (28-32); MEAN CORPUSCULAR HGB CONC 35.4 g/dL (31-35); MEAN CORPUSCULAR VOLUME 85.3 fL (81-99); MONOCYTES # (AUTO) 1.3 (0.2-0.8); MONOCYTES % 11.4 % (4.4-11.3); NEUTROPHILS # (AUTO) 8.2 (2.1-6.9); NEUTROPHILS % 72.5 % (38.7-80.0); PLATELET COUNT 218 x10e3/uL (140-360); RED BLOOD COUNT 4.34 x10e6/uL (4.3-5.7); RED CELL DISTRIBUTION WIDTH 13.6 % (11.7-14.4)
[2019-05-22 07:07] LABS: ALBUMIN 3.2 g/dL (3.5-5.0); ANION GAP 17.5 mmol/L (8-16); CREATININE, SERUM 1.68 mg/dL (0.72-1.25)
[2019-05-22 07:13] LABS: POTASSIUM 2.5 mmol/L (3.5-5.1)
[2019-05-22] MEDS: INSULIN LISPRO 100 UNIT/1 ML 3ML VIAL SQ SCH ×3 (07:30→15:38)
[2019-05-22] MEDS ORDERED: POTASSIUM CHLORIDE 20 MEQ TAB CR PO NR ×2 (07:30→12:00)
[2019-05-22 07:59] VITALS: BP 139/66
[2019-05-22] MEDS: GEMFIBROZIL 600 MG TAB PO SCH (08:24)
[2019-05-22] MEDS: ASPIRIN 81 MG CHEW TAB PO SCH (08:24)
[2019-05-22] MEDS: GLIMEPIRIDE 2 MG TAB PO SCH (08:24)
[2019-05-22] MEDS: MONTELUKAST SODIUM 10 MG TAB PO SCH (08:24)
[2019-05-22] MEDS: METOLAZONE 5 MG TAB PO SCH (08:24)
[2019-05-22] MEDS: ISOSORBIDE MONONITRATE 30 MG TAB CR PO SCH (08:24)
[2019-05-22] MEDS: GABAPENTIN 300 MG CAP PO SCH (08:24)
[2019-05-22] MEDS: METFORMIN HCL 500 MG TAB PO SCH (08:24)
[2019-05-22 08:25] VITALS: BP 139/66
--- NOTE | 2019-05-22 10:43 | NUR ---
PT ACCEPTED TO [facility] [address] CASAREZ. RTF COMPLETED PT GIVEN IMM SIGNED AND FILED IN CHART COPY LEFT AT BEDSIDE
--- NOTE | 2019-05-22 11:04 | NUR ---
Report called to medical [facility] and given to Maria Isabel Carson LVN of patient's status.
[2019-05-22 11:42] VITALS: BP 131/71
[2019-05-22] MEDS ORDERED: SODIUM CHLORIDE 0.9% 250ML 250 ML ONE (11:42)
--- NOTE | 2019-05-22 12:52 | NUR ---
EDUCATED ABOUT IMM, SIGNED, FILED IN CHART, WITH COPY LEFT WITH FAMILY AT BEDSIDE
[2019-05-22 14:40] LABS: ANION GAP 21.1 mmol/L (8-16); CALCIUM 9.6 mg/dL (8.4-10.2); CREATININE, SERUM 1.71 mg/dL (0.72-1.25); POTASSIUM 3.1 mmol/L (3.5-5.1)
[2019-05-22] MEDS ORDERED: POTASSIUM CHLORIDE 20 MEQ TAB CR PO ONE (14:49)
[2019-05-22 15:52] VITALS: BP 130/65
[2019-05-22] MEDS: VANCOMYCIN 1GM/NS 250 ML 250 ML IV SCH (16:10)
--- NOTE | 2019-05-22 16:44 | NUR ---
Left FA IV clean, dry, and intact. Taken via stretcher. AAOX3 to time, person, place. Respirations even and unlabored. Denies pain. Discharge instructions and all personal instructions taken with [facility].
--- NOTE | 2019-05-23 06:11 | Discharge Summary ---
DISCHARGE DIAGNOSES: 1. Bilateral lower extremity cellulitis, right worse than left. 2. Peripheral arterial disease. 3. Hypertension. 4. Diabetes. 5. Peripheral neuropathy. 6. Chronic kidney disease stage 3. HISTORY OF PRESENT ILLNESS AND HOSPITAL COURSE: See hospital for full details. The patient is a gentleman, who presented with increasing redness in his lower extremities, right worse than left, where he was admitted for cellulitis, where he was placed on IV antibiotics. An arterial Doppler was done showing significant peripheral arterial disease. So, he was seen by Cardiology, but since the patient is mostly wheelchair bound and is not having any discomfort, no claudication, they felt the risks outweighed the benefits. They would hold off on any type of intervention including the angiogram, which the patient and daughter were agreeable to. His cellulitis improved tremendously. At the time of discharge, he was with overall weakness. He was then sent to a [facility] facility due to the weakness, and we will continue with the antibiotics. Please see hospital chart for full details. MD MARVIN Lynn/VASILE /[id number]
== END 2019-05-22 16:44 | DRG 603 ==
LOC: ER 14:24 → ERHOLD 16:52 → MED/SURG2 17:29
PROVIDERS: ADMIT Internal Medicine; ATTEND Internal Medicine
DX: L03.116 Cellulitis of left lower limb (principal); E11.51 Type 2 diabetes mellitus with diabetic peripheral angiopathy without gangrene; L03.115 Cellulitis of right lower limb; E11.42 Type 2 diabetes mellitus with diabetic polyneuropathy; E11.22 Type 2 diabetes mellitus with diabetic chronic kidney disease; I12.9 Hypertensive chronic kidney disease with stage 1 through stage 4 chronic kidney disease, or unspecified chronic kidney disease; N18.3 Chronic kidney disease, stage 3 (moderate); I10 Essential (primary) hypertension; Z99.3 Dependence on wheelchair
CPT/HCPCS: 36415; 71045; 80048; 80053; 80202; 81001; 82550; 82553; 82948; 83605; 83735; 83880; 84484; 85025; 85610; 85730; 87040; 87086; 93005; 93925; 97139; 99284; J2543; J3370; J7030; J7050; Q0162

== ENCOUNTER 2019-05-31 15:35 | Emergency (ER) | payer MEDICARE ==
[~2019-05-31] VITALS: Ht 185.4 cm; Wt 106.6 kg
[~2019-05-31 15:35] MED LIST changes: +AREDS PO; +DOXAZOSIN MESYLA2 MG PO; +ISOSORBIDE MONO60 MG PO; +LIOTHYRONINE SO5 MCG PO; +METFORMIN HCL500 M2 PO; +METHOCARBAMOL750 MG PO; +ULTRAM50 MG PO; +UNISOM SLEEP AI25 MG PO
--- OUTSIDE RECORDS SUMMARY | 2019-05-31 15:38 | XMS REPORT | Continuity of Care Document ---
Author Author [employer] Address Unknown Phone Unavailable Care Team Providers Care Movie Operator Name Role Phone [employer] Unavailable Unavailable Problems Problem Status Onset Date Classification Date Reported Comments Source DX: R07.2=PRECORDIAL PAIN DR RIVERA Active 05/02/2017 [facility] 782.3 - EDEMA Active 09/14/2013 [facility] [place] Arthritis (disorder) Active Problem 05/17/2017 [facility] [place] Degeneration of intervertebral disc (disorder) Active Problem 05/17/2017 [facility] [place] Diabetes mellitus (disorder) Active Problem 05/17/2017 [facility] [place] Diabetic neuropathy (disorder) Active Problem 05/17/2017 [facility] [place] Hypertensive disorder, systemic arterial (disorder) Active Problem 05/17/2017 [facility] [place] PRECORDIAL PAIN Active [facility] Medications No Data Provided for This [...] hypokinesis, inferior wall of left ventricle. SL: [id number] 05/14/2017 [facility] Abdominal Aorta with runoff CTA [...] Date Comments Source Height 182.88 cm 05/14/2017 [facility] BMI Calculated 32.62 05/14/2017 [facility] Weight 109.091 05/14/2017 [facility] Encounters Location Location Details Encounter Type Encounter Number Reason For Visit Attending Provider ADM Date DC Date Status Source OD [id number] 782.3 - EDEMA GRICELDA PEARCE 09/30/2013 09/30/2013 Active LILIA Mena [facility] [id number] Leia Rivera Jr 05/14/2017 05/15/2017 [facility] Procedures Procedure Code Date Perfomer Comments Source Open reduction and fixation of fracture [id number] [facility] Open reduction and fixation of fracture<sup>1</sup> [id number] as child [facility] Assessment and Plan No Data Provided for This Section Plan of Care No Data Provided for This Section Social History Social History Date Source No data available for this section 05/15/2017 [facility] Family History No Data Provided for This Section Advance Directives No Data Provided for This Section Functional Status No Data Provided for This Section
--- NOTE | 2019-05-31 16:24 | NUR ---
FAMILY AT BEDSIDE.
== END 2019-05-31 18:14 | disposition home or self-care (01) ==
LOC: ER 15:35
DX: I73.9 Peripheral vascular disease, unspecified (principal); I10 Essential (primary) hypertension; E11.40 Type 2 diabetes mellitus with diabetic neuropathy, unspecified; E78.5 Hyperlipidemia, unspecified; K21.9 Gastro-esophageal reflux disease without esophagitis; F32.9 Major depressive disorder, single episode, unspecified; Z96.652 Presence of left artificial knee joint
CPT/HCPCS: 99283

== ENCOUNTER 2020-02-23 13:34 | Inpatient (IN) | payer MEDICARE, OTHER ==
[~2020-02-23] VITALS: Ht 185.4 cm; Wt 106.6 kg
--- OUTSIDE RECORDS SUMMARY | 2020-02-23 13:38 | XMS REPORT | Continuity of Care Document ---
Author Author [employer] PASCUAL Parikh [facility] [employer] Address Unknown Phone Unavailable Care Team Providers Care Aluminum Molding Machine Operator Name Role Phone [facility] [employer] Unavailable Un available Problems Problem Status Onset Date Classification Date Reported Comments Source DX: R07.2=PRECORDIAL PAIN DR RIVERA Active 05/02/2017 [facility] 782.3 - EDEMA Active 09/14/2013 [facility] [place] Arthritis (disorder) Active Problem 05/17/2017 [facility] [place] Degeneration of intervertebral disc (disorder) Active Problem 05/17/2017 [facility] [place] [place] Diabetes mellitus (disorder) A ctive Problem [facility] [place] Diabetic neuropathy (disorder) Active Problem [facility] [place] Hypertensive disorder, systemic arterial (disorder) Active Problem 05/17/2017 [facility] [place] [place] PRECORDIAL PAIN Active [facility] Medications No Data Provided for [...] hypokinesis, inferior wall of left ventricle. SL: [id number] 05/14/2017 [facility] Abdominal Aorta with runoff CTA [...] both popliteal arteries. 2. Severe atherosclerotic disease throug hout the runoff vessels of both calves. 3. Nonhemodynamically significant narrow ing of the origin of the right renal artery. 3. Left adrenal nodule and left kidney l esion, incompletely characterized on this exam. 10/21/2013 LILIA Mena Extremity lower venous doppler bilat US [...] augmentation. Impression: 1. Negative bilateral lower extremity D oppler venous ultrasound for DVT. 09/30/2013 LILIA Mena [...] Date Comments Source Height 182.88 cm 05/14/2017 [facility] BMI Calculated 32.62 05/14/2017 [facility] Weight 109.091 05/14/2017 [facility] Encounters Location Location Details Encounter Type Encounter Number Reason For Visit Attending Provider ADM Date DC Date Status Source OD [id number] 782.3 - EDEMA GRICELDA RAMSES 09/30/2013 09/30/2013 Active L[facility] [place] [facility] [id number] Leia Rivera Jr 05/14/2017 05/15/2017 [facility] Procedures Procedure Code Date Perfomer Comments Source Open reduction and fixation of fracture [id number] [facility] Open reduction and fixation of fracture<sup>1</sup> [id number] as child [facility] Assessment and Plan No Data Provided for This Section Plan of Care No Data Provided for This Section Social History Social History Date Source No data available for this section 05/15/2017 [facility] Family History No Data Provided for This Section Advance Directives No Data Provided for This Section Functional Status No Data Provided for This Section
--- OUTSIDE RECORDS SUMMARY | 2020-02-23 13:38 | XMS REPORT | Continuity of Care Document ---
Author Author [facility] t Organization [facility] Address 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 Name Role Phone GRICELDA PEARCE MD PCP Gallo JACKSON Attphys Andreea Valencia Jr Attphys Payers Payer Name Policy Type Policy Number Effective Date Expiration Date Diony Briggs [facility] [id number] 2018 00:00:00 [facility] Problems Condition Name Condition Details Condition Category Status Onset Date Resolution Date Last Treatment Date Treating Clinician Comments Source DX: R07.2=PRECORDIAL PAIN DR CAVANAUGH DX: R07.2=PRECORDIAL PAIN DR CAVANAUGH Active 05/02/2017 [facility] Active 2017-05-02 00:00:00 2017-05-14 07:59:00 [facility] 782.3 - EDEMA 782. 3 - EDEMA Active 09/14/2013 [facility] [place] Diagnosis Active 2013-09-14 00:01:00 2013-12-02 07:55:00 [facility] [place] Acute on chronic renal insufficiency Acute on chronic renal insufficiency Problem Active [facility] Cellulitis Cellulitis Problem Active C [facility] Arthritis (disorder) Arth ritis (disorder) [facility] Active 2017-05-17 01:02:[address] [facility] Degeneration of intervertebral disc (disorder) Degeneration of intervertebral disc (disorder) Active Problem 05/17/2017 JESIKA Mena [facility] Problem Active 2017-05-17 01:02:3 1 LILIA Mena, [facility] Diabetes mellitus (disorder) D iabetes mellitus (disorder) Active Problem 05/17/2017 LILIA Mena, [facility] Problem Active 2017-05-17 01:02:31 LILIA Mena, [facility] Diabetic neuropathy (disorder) Diabetic neuropathy (disorder) Active Problem 05/17/2017 LILIA Mena, [facility] Problem Active 2017-05-17 01:02:[address] [facility] Hypertensive disorder, systemic arterial (disorder) Hypertensive disorder, systemic arterial (disorder) Active Problem 05/17/[address] [facility] Problem Active 2017-05-17 01:02:[address] [facility] PRECORDIAL PAIN PREC ORDIAL PAIN Active [facility] Diagnosis Active 2017-05-14 07:59:[address] [facility] Allergies, Adverse Reactions, Alerts Allergy Name Allergy Type Status Severity Reaction(s) Onset Date Inacti ve Date Treating Clinician Comments Source No Known Allergies DA Active U 2012-07-14 00:00:00 [facility] Social History Social Habit Start Date Stop Date Quantity Comments Source Social History 2017-05-15 04:59:00 2017-05-15 04:59:00 [facility] Medications Ordered Medication Name Filled Medication Name Start Date Stop Da te Current Medication? Ordering Clinician Indication Dosage Frequency Signature (SIG) Comments Components Source [id number] 325 Mg Tab, 325 Mg Oral Oip269 325 Mg Tab, 325 Mg Ora l 2014-10-07 00:00:00 2018-07-31 00:00:00 Jennifer Moreau 325 Twice A Day [facility] Nrc5t 1 Ea Tab, 1 Ea Oral Nrc5t 1 Ea Tab, 1 Ea Oral 2014-10-07 0 0:00:00 2018-07-31 00:00:00 Jennifer Moreau 1 Ev mello 4 Hours as needed for Pain [facility] Nrc7.5t 1 Ea Tab, 1 Ea Oral Nrc7.5t 1 Ea Tab, 1 Ea Oral 00:00:00 2018-07-31 00:00:00 No Dayron Moreau 1 Ev mello 4 Hours as needed for Pain [facility] Schq7g4 2 Mg/Ml Vial, 4 Mg Intraven Ozcs4g0 2 Mg/Ml Vial, 4 Mg Intraven 2014-10-07 00:00:00 2018-07-31 00:00:00 No Dayron Moreau 4 Every 6 Hours as needed for Nausea [facility] Areds Areds Yes 1 Daily [facility] Aspirin (Aspir 81) 81 Mg Tablet. Aspirin (Aspir 81) 81 Mg Tablet. Yes Daily [facility] Doxazosin Mesylate 2 Mg Tablet Doxazosin Mesylate 2 Mg Tablet Yes 4 Bedtime [facility] Doxylamine Succinate (Unisom Sleep Aid) 25 Mg Tablet D oxylamine Succinate (Unisom Sleep Aid) 25 Mg Tablet Yes 25 Bedtim e [facility] Furosemide 40 Mg Tablet Furosemide 40 Mg Tablet Yes 40 Twice A Day [facility] Gabapentin 300 Mg Capsule Gabapentin 300 Mg Capsule Yes 300 Twice A Day [facility] Gemfibrozil 600 Mg Tablet Gemfibrozil 600 Mg Tablet Yes 600 Twice A Day [facility] Glimepiride 2 Mg Tablet Glimepiride 2 Mg Tablet Yes 2 Daily [facility] Isosorbide Mononitrate (Isosorbide Mononitrate Er) 60 Mg Tab.er.24h Isosorbide Mononitrate (Isosorbide Mononitrate Er) 60 Mg Tab.er.24h Yes 60 Daily [facility] Liothyronine Sodium 5 Mcg Tablet Liothyronine Sodium 5 Mcg Tablet Yes 5 Daily [facility] Metformin Hcl (Metformin Hcl Er) 500 Mg Tab.er.24 Metf ormin Hcl (Metformin Hcl Er) 500 Mg Tab.er.24 Yes 1000 Twice A Day [facility] Methocarbamol 750 Mg Tablet Methocarbamol 750 Mg Tablet Yes 750 Bedtime [facility] Metolazone 2.5 Mg Tablet Metolazone 2.5 Mg Tablet Yes 2.5 Daily [facility] Tramadol Hcl (Ultram) 50 Mg Tablet Tramadol Hcl (Ultram) 50 Mg Tablet Yes 50 Every 6 Hours as needed for Mild Pain (1-3) Or Fever>100.8 [facility] Captopril 25 Mg Tablet, 25 Mg Oral Captopril 25 Mg Tablet, 25 Mg Oral 2019-05-17 00:00:00 No 25 Twice A Day [facility] Captopril 25 Mg Tablet, 25 Mg Oral Captopril 25 Mg Tablet, 25 Mg Oral 2019-05-17 00:00:00 No 25 Twice A Day [facility] Fluconazole 100 Mg Tablet, 50 Mg Oral Fluconazole 100 Mg Tablet, 50 Mg Oral 2019-05-17 00:00:00 No 50 [facility] Metolazone 5 Mg Tablet, 2.5 Mg Pe Oral Metolazone 5 Mg Tablet, 2 .5 Mg Pe Oral 2019-05-17 00:00:00 No 2.5 Daily [facility] Nitroglycerin (Nitrostat) 0.4 Mg Tab.subl, Sublingua l Nitroglycerin (Nitrostat) 0.4 Mg Tab.subl, Sublingual 2019-05-17 00:00:00 No [facility] Ranitidine Hcl 300 Mg Capsule, Ranitidine Hcl 300 Mg Capsule, 2019-05-17 00:00:00 No [facility] Alpha Lipoic Acid , Oral Alpha Lipoic Acid , Oral 2017 00:00:00 No Daily [facility] B2/Vit A,C & E/Lut/Zeaxanth/Mn (Icaps Tablet) 1 Each T ablet.er, Oral B2/Vit A,C & E/Lut/Zeaxanth/Mn (Icaps Tablet) 1 Each Tablet.er, Oral 2018-07-31 00:00:00 No Daily [facility] Chlorthalidone 25 Mg Tablet, 25 Mg Oral Chlorthalidone 25 Mg Tablet, 25 Mg Oral 2018-07-31 00:00:00 No 25 Daily [facility] Fish Oil , 360 Mg Oral Fish Oil , 360 Mg Oral 2018-07-31 00:00:0 0 No 360 Daily [facility] Glimepiride 2 Mg Tablet, 2 Mg Oral Glimepiride 2 Mg Tablet, 2 Mg Oral 2018-07-31 00:00:00 No 2 Daily [facility] Multivitamin (Multivitamins) 1 Each Capsule, Oral Mu ltivitamin (Multivitamins) 1 Each Capsule, Oral 2018-07-31 00:00:00 No D aily [facility] Aspirin 81 Mg Tab.chew, 81 Mg Oral Aspirin 81 Mg Tab.chew, 81 Mg Oral 2014-10-07 00:00:00 No 81 Daily [facility] Naproxen Sodium (Aleve) 220 Mg Tablet, 1 Tab Oral Napr oxen Sodium (Aleve) 220 Mg Tablet, 1 Tab Oral 2014-10-07 00:00:00 No 1 As Needed as needed for Pain [facility] Tramadol Hcl (Ultram 50MG*) 50 Mg Tab, 50 Mg Oral Tram adol Hcl (Ultram 50MG*) 50 Mg Tab, 50 Mg Oral 2014-10-07 00:00:00 No 50 Every 6 Hours as needed for Pain [facility] Vital Signs Vital Name Observation Time Observation Value Comments Source Height 2017-05-14 14:12:00 182.88 cm [facility] BMI Calculated 2017-05-14 14:12:00 Leonela theast Weight 2017-05-14 14:12:00 [facility] Procedures Procedure Date / Time Performed Performing Clinician Braulio john Open reduction and fixation of fracture [facility] Encounters Start Date/Time End Date/Time Encounter Type Admission Type Attendi [facility] Facility Care Department Encounter ID Source 2019-05-31 15:35:00 2019-05-31 18:14:00 Departed Emergency Room [facility] [id number] [facility] 2019-05-17 16:52:00 2019-05-22 16:44:00 Discharged Inpatient 1 LOUISE JACKSON [facility] [id number] JUNIOR [facility] 2018-07-31 08:08:00 2018-07-31 08:08:00 Registered Surgical Day Care [facility] [id number] [facility] 2017-05-14 12:51:00 2017-05-15 04:59:00 Outpatient MHIEALT [facility] [id number] [facility] 2017-05-14 07:51:00 2017-05-14 23:59:00 Outpatient Leia Cavanaugh [facility] [id number] 2013-10-21 08:33:00 2013-10-21 23:59:00 Outpatient MHIEA LT [facility] [id number] [facility] [place] 2013-09-30 06:42:00 2013-09-30 23:59:00 OD [id number] [facility] [place] 2013-09-30 06:42:00 2013-09-30 23:59:00 Outpatient MHIEA LT [facility] [id number] [facility] [place] Results Test Description Test Time Test Comments Results Result Comments Source GLUBED 2019-10-12 13:00:00 Test Item GLUBED (test code = GLUBED) 152 mg/dL 74-106 H Performed by certified tenter frame operator at [facility] [id number] 05:59:00* Test Item Value Reference Range Interpretation Comments CREATININE (test code = CREAT) 1.20 mg/dL 0.7-1.3 N [id number] 05:44:00* Test Item Value Reference Range Interpretation Comments GLUBED (test code = GLUBED) 94 mg/dL 74-106 N Performed by certified tenter frame operator at [facility] [id number] 21:45:00* Test Item Value Reference Range Interpretation Comments GLUBED (test code = GLUBED) 88 mg/dL 74-106 N Performed by certified tenter frame operator at [facility] [id number] 18:17:00* Test Item Value Reference Range Interpretation Comments GLUBED (test code = GLUBED) 93 mg/dL 74-106 N Performed by certified tenter frame operator at [facility] [id number] 12:15:00* Test Item Value Reference Range Interpretation Comments GLUBED (test code = GLUBED) 129 mg/dL 74-106 H Performed by certified tenter frame operator at [facility] [id number] 06:14:00* Test Item Value Reference Range Interpretation Comments GLUBED (test code = GLUBED) 91 mg/dL 74-106 N Performed by certified tenter frame operator at [facility] [id number] 21:07:00* Test Item Value Reference Range Interpretation Comments GLUBED (test code = GLUBED) 73 mg/dL 74-106 L Performed by certified tenter frame operator at [facility]2020-01-18 16:44:00* Test Item Value Reference Range Interpretation Comments GLUBED (test code = GLUBED) 105 mg/dL 74-106 N Performed by certified tenter frame operator at [facility]2020-01-18 16:44:00* Test Item Value Reference Range Interpretation Comments GLUBED (test code = GLUBED) 122 mg/dL 74-106 H Performed by certified tenter frame operator at [facility] [id number] 06:02:00* Test Item Value Reference Range Interpretation Comments GLUBED (test code = GLUBED) 110 mg/dL 74-106 H Performed by certified tenter frame operator at [facility] [id number] 20:38:00* Test Item Value Reference Range Interpretation Comments GLUBED (test code = GLUBED) 125 mg/dL 74-106 H Performed by certified tenter frame operator at [facility] [id number] 19:20:00* Test Item Value Reference Range Interpretation Comments GLUBED (test code = GLUBED) 112 mg/dL 74-106 H Performed by certified tenter frame operator at [facility] [id number] 19:20:00* Test Item Value Reference Range Interpretation Comments GLUBED (test code = GLUBED) 143 mg/dL 74-106 H Performed by certified tenter frame operator at [facility] [id number] 05:41:00* Test Item Value Reference Range Interpretation Comments GLUBED (test code = GLUBED) 101 mg/dL 74-106 N Performed by certified tenter frame operator at [facility] [id number] 21:51:00* Test Item Value Reference Range Interpretation Comments GLUBED (test code = GLUBED) 101 mg/dL 74-106 N Performed by certified tenter frame operator at [facility] [id number] 17:41:00* Test Item Value Reference Range Interpretation Comments GLUBED (test code = GLUBED) 112 mg/dL 74-106 H Performed by certified tenter frame operator at [facility] [id number] 17:41:00* Test Item Value Reference Range Interpretation Comments GLUBED (test code = GLUBED) 156 mg/dL 74-106 H Performed by certified tenter frame operator at [facility] [id number] 07:14:00* Test Item Value Reference Range Interpretation Comments GLUBED (test code = GLUBED) 129 mg/dL 74-106 H Performed by certified tenter frame operator at [facility] [id number] 22:19:00* Test Item Value Reference Range Interpretation Comments GLUBED (test code = GLUBED) 106 mg/dL 74-106 N Performed by certified tenter frame operator at [facility] - CTA CHEST FOR [id number] 16:47:00 Name: PASCUAL WHALEN [facility] : 1935 Age/S: 84 / M [address] [facility] Unit #: [id number] Loc: LAUREL Mena [address] Phys: NancyCesar Shon RAHMAN Acct: [id number] Dis Date: Status: ADM IN PHONE #: [phone] Exam Date: 10/07/2019 1553 FAX #: [phone] Reason: evaluate for PE EXAMS: CPT CODE: [id number] [place] [id number] EXAM: CT of the chest; INFORMATION: Hypoxia; PE; TECHNIQUE AND FINDINGS: CT dose reduction protocol; Helical scans were obtained through the chest during intravenous infusion of contrast material. Multiplanar reconstructions; 3-D angiographic studies were generated on an independent workstation, using volume rendering and maximum intensity projection algorithms. There is dense opacification of the pulmonary arteries. There are small filling defects within left lower lobe segmental branches consistent with mostly nonocclusive emboli. Lung windows show atelectatic changes within the right lower lobe and minimal dependent atelectasis in the left lower lobe. The remainder the lungs is clear. No pleural effusion; No pneumothorax. The heart is slightly enlarged. Extensive calcifications of the thoracic aorta and the coronary arteries. IMPRESSION: 1. Segmental pulmonary emboli in the left lower lobe. 2. Mild atelectatic changes in the lower lobes, right greater than left. 3. Mild cardiomegaly. FINDINGS were discussed with Dr. Cruz, ER, at 1642 hours; FOR INTERNAL CODING PURPOSES ONLY RESULT CODE: Location code: [facility] at 1647 Reported and signed by: Cheikh Weiss M.D. CC: Bud Julien MD; Roel Mojica; Cesar Cruz DO Technologist:CRESCENCIO GABRIEL, RT(R) CT CTDI: DLP: Trnscb Date/Time: 10/07/2019 (164) [email or web address] Orig Print D/T: S: 10/08/2019 (2700) PAGE 1 Signed Report [id number] 15:43:00* Test Item Value Reference Range Interpretation Comments D-DIMER (test code = DDIMER) 1804.00 ng/mLFEU 0-500 HH Results called to [id number] by [email or web address] 10/07/19 1542Critical results verified and read back by Nurse? YClinical Cut-off value for D-Dimer is 500 ng/mL FEU. Comment: The [employer] D- Dimer assay is intended for use asan aid in the diagnosis of venous thromboembolism (VTE)[deep vein thrombosis (DVT) or pulmonary embolism (PE)].The measurement of D-Dimer should not be used as an aid inthe diagnosis of VTE, in patient with: -Therapeutic dose anticoagulant therapy for >24 hours - Fibrinolytic therapy within previous 7 days -Trauma or surgery within previous 4 weeks -Disseminated malignancies -Aortic aneurysm -Sepsis, severe infections, pneumonia, severe skin infections -Liver cirrhosis - B-TYPE NATRIURETIC [id number] 15:18:00* Test Item Value Reference Range Interpretation Comments B-TYPE NATRIURETIC PEPTIDE (test code = BNP) 238.32 pgram/mL 0-100 H CBC W/AUTO [id number] 12:51:00* Test Item Value Reference Range Interpretation Comments WHITE BLOOD CELL (test code = WBC) 11.8 K/mm3 4.5-12.5 N RED BLOOD CELL (test code = RBC) 3.99 mill/mm3 4.0-5.8 L HEMOGLOBIN (test code = HGB) 11.9 gram/dL 13.0-17.5 L HEMATOCRIT (test code = HCT) 34.9 % 42.0-52.0 L MEAN CELL VOLUME (test code = MCV) 87.5 fL 80-98 N MEAN CELL HGB (test code = MCH) 29.8 picogram 27.0-33.0 N MEAN CELL HGB CONCETRATION (test code = MCHC) 34.1 gram/dL 33.0-36. 0 N RED CELL DISTRIBUTION WIDTH (test code = RDW) 13.5 % 11.6-16. 2 N RED CELL DISTRIBUTION WIDTH SD (test code = RDW-SD) 43.1 fL 37 .0-51.0 N PLATELET COUNT (test code = PLT) 407 K/mm3 150-450 N MEAN PLATELET VOLUME (test code = MPV) 10.2 fL 6.7-11.0 N NEUTROPHIL % (test code = NT%) 76.7 % 39.0-69.0 H IMMATURE GRANULOCYTE % (test code = IG%) 4.8 % 0.0-5.0 N LYMPHOCYTE % (test code = LY%) 8.2 % 25.0-55.0 L MONOCYTE % (test code = MO%) 8.4 % 0.0-10.0 N EOSINOPHIL % (test code = EO%) 1.2 % 0.0-5.0 N BASOPHIL % (test code = BA%) 0.7 % 0.0-1.0 N NUCLEATED RBC % (test code = NRBC%) 0.0 % 0-0 N NEUTROPHIL # (test code = NT#) 9.06 K/mm3 1.8-7.7 H IMMATURE GRANULOCYTE # (test code = IG#) 0.57 x10 3/uL 0-0.03 H LYMPHOCYTE # (test code = LY#) 0.97 K/mm3 1.0-5.0 L MONOCYTE # (test code = MO#) 0.99 K/mm3 0-0.8 H EOSINOPHIL # (test code = EO#) 0.14 K/mm3 0.0-0.5 N BASOPHIL # (test code = BA#) 0.08 K/mm3 0.0-0.2 N NUCLEATED RBC # (test code = NRBC#) 0.00 K/mm3 0.0-0.1 N MANUAL DIFF REQUIRED (test code = MDIFF) NO, ONLY SCAN NEEDED DIFFERENTIAL [id number] 12:51:00* Test Item Value Reference Range Interpretation Comments STAIN ACCEPTABILITY (test code = STN ACCEPTABLE) STAIN ACCEPTABLE PLATELET ESTIMATE (test code = PLTEST) ADEQUATE PLATELET MORPHOLOGY (test code = PLTMORPH) NORMAL CBC W/AUTO [id number] 12:09:00* Test Item Value Reference Range Interpretation Comments WHITE BLOOD CELL (test code = WBC) 11.8 K/mm3 4.5-12.5 N RED BLOOD CELL (test code = RBC) 3.99 mill/mm3 4.0-5.8 L HEMOGLOBIN (test code = HGB) 11.9 gram/dL 13.0-17.5 L HEMATOCRIT (test code = HCT) 34.9 % 42.0-52.0 L MEAN CELL VOLUME (test code = MCV) 87.5 fL 80-98 N MEAN CELL HGB (test code = MCH) 29.8 picogram 27.0-33.0 N MEAN CELL HGB CONCETRATION (test code = MCHC) 34.1 gram/dL 33.0-36. 0 N RED CELL DISTRIBUTION WIDTH (test code = RDW) 13.5 % 11.6-16. 2 N RED CELL DISTRIBUTION WIDTH SD (test code = RDW-SD) 43.1 fL 37 .0-51.0 N PLATELET COUNT (test code = PLT) 407 K/mm3 150-450 N MEAN PLATELET VOLUME (test code = MPV) 10.2 fL 6.7-11.0 N NEUTROPHIL % (test code = NT%) 76.7 % 39.0-69.0 H IMMATURE GRANULOCYTE % (test code = IG%) 4.8 % 0.0-5.0 N LYMPHOCYTE % (test code = LY%) 8.2 % 25.0-55.0 L MONOCYTE % (test code = MO%) 8.4 % 0.0-10.0 N EOSINOPHIL % (test code = EO%) 1.2 % 0.0-5.0 N BASOPHIL % (test code = BA%) 0.7 % 0.0-1.0 N NUCLEATED RBC % (test code = NRBC%) 0.0 % 0-0 N NEUTROPHIL # (test code = NT#) 9.06 K/mm3 1.8-7.7 H IMMATURE GRANULOCYTE # (test code = IG#) 0.57 x10 3/uL 0-0.03 H LYMPHOCYTE # (test code = LY#) 0.97 K/mm3 1.0-5.0 L MONOCYTE # (test code = MO#) 0.99 K/mm3 0-0.8 H EOSINOPHIL # (test code = EO#) 0.14 K/mm3 0.0-0.5 N BASOPHIL # (test code = BA#) 0.08 K/mm3 0.0-0.2 N NUCLEATED RBC # (test code = NRBC#) 0.00 K/mm3 0.0-0.1 N MANUAL DIFF REQUIRED (test code = MDIFF) NO, ONLY SCAN NEEDED DIFFERENTIAL [id number] 12:09:00* Test Item Value Reference Range Interpretation Comments STAIN ACCEPTABILITY (test code = STN ACCEPTABLE) MORPHOLOGY COMMENT (test code = MOC) PLATELET ESTIMATE (test code = PLTEST) PLATELET MORPHOLOGY (test code = PLTMORPH) CBC W/AUTO [id number] 12:08:00* Test Item Value Reference Range Interpretation Comments WHITE BLOOD CELL (test code = WBC) 11.8 K/mm3 4.5-12.5 N RED BLOOD CELL (test code = RBC) 3.99 mill/mm3 4.0-5.8 L HEMOGLOBIN (test code = HGB) 11.9 gram/dL 13.0-17.5 L HEMATOCRIT (test code = HCT) 34.9 % 42.0-52.0 L MEAN CELL VOLUME (test code = MCV) 87.5 fL 80-98 N MEAN CELL HGB (test code = MCH) 29.8 picogram 27.0-33.0 N MEAN CELL HGB CONCETRATION (test code = MCHC) 34.1 gram/dL 33.0-36. 0 N RED CELL DISTRIBUTION WIDTH (test code = RDW) 13.5 % 11.6-16. 2 N RED CELL DISTRIBUTION WIDTH SD (test code = RDW-SD) 43.1 fL 37 .0-51.0 N PLATELET COUNT (test code = PLT) 407 K/mm3 150-450 N MEAN PLATELET VOLUME (test code = MPV) 10.2 fL 6.7-11.0 N NEUTROPHIL % (test code = NT%) 76.7 % 39.0-69.0 H IMMATURE GRANULOCYTE % (test code = IG%) 4.8 % 0.0-5.0 N LYMPHOCYTE % (test code = LY%) 8.2 % 25.0-55.0 L MONOCYTE % (test code = MO%) 8.4 % 0.0-10.0 N EOSINOPHIL % (test code = EO%) 1.2 % 0.0-5.0 N BASOPHIL % (test code = BA%) 0.7 % 0.0-1.0 N NUCLEATED RBC % (test code = NRBC%) 0.0 % 0-0 N NEUTROPHIL # (test code = NT#) 9.06 K/mm3 1.8-7.7 H IMMATURE GRANULOCYTE # (test code = IG#) 0.57 x10 3/uL 0-0.03 H LYMPHOCYTE # (test code = LY#) 0.97 K/mm3 1.0-5.0 L MONOCYTE # (test code = MO#) 0.99 K/mm3 0-0.8 H EOSINOPHIL # (test code = EO#) 0.14 K/mm3 0.0-0.5 N BASOPHIL # (test code = BA#) 0.08 K/mm3 0.0-0.2 N NUCLEATED RBC # (test code = NRBC#) 0.00 K/mm3 0.0-0.1 N MANUAL DIFF REQUIRED (test code = MDIFF) NO, ONLY SCAN NEEDED DIFFERENTIAL [id number] 12:08:00* Test Item Value Reference Range Interpretation Comments STAIN ACCEPTABILITY (test code = STN ACCEPTABLE) CABOT RINGS (test code = CAB) MORPHOLOGY COMMENT (test code = MOC) PLATELET ESTIMATE (test code = PLTEST) PLATELET MORPHOLOGY (test code = PLTMORPH) CBC W/AUTO [id number] 12:08:00* Test Item Value Reference Range Interpretation Comments WHITE BLOOD CELL (test code = WBC) 11.8 K/mm3 4.5-12.5 N RED BLOOD CELL (test code = RBC) 3.99 mill/mm3 4.0-5.8 L HEMOGLOBIN (test code = HGB) 11.9 gram/dL 13.0-17.5 L HEMATOCRIT (test code = HCT) 34.9 % 42.0-52.0 L MEAN CELL VOLUME (test code = MCV) 87.5 fL 80-98 N MEAN CELL HGB (test code = MCH) 29.8 picogram 27.0-33.0 N MEAN CELL HGB CONCETRATION (test code = MCHC) 34.1 gram/dL 33.0-36. 0 N RED CELL DISTRIBUTION WIDTH (test code = RDW) 13.5 % 11.6-16. 2 N RED CELL DISTRIBUTION WIDTH SD (test code = RDW-SD) 43.1 fL 37 .0-51.0 N PLATELET COUNT (test code = PLT) 407 K/mm3 150-450 N MEAN PLATELET VOLUME (test code = MPV) 10.2 fL 6.7-11.0 N NEUTROPHIL % (test code = NT%) 76.7 % 39.0-69.0 H IMMATURE GRANULOCYTE % (test code = IG%) 4.8 % 0.0-5.0 N LYMPHOCYTE % (test code = LY%) 8.2 % 25.0-55.0 L MONOCYTE % (test code = MO%) 8.4 % 0.0-10.0 N EOSINOPHIL % (test code = EO%) 1.2 % 0.0-5.0 N BASOPHIL % (test code = BA%) 0.7 % 0.0-1.0 N NUCLEATED RBC % (test code = NRBC%) 0.0 % 0-0 N NEUTROPHIL # (test code = NT#) 9.06 K/mm3 1.8-7.7 H IMMATURE GRANULOCYTE # (test code = IG#) 0.57 x10 3/uL 0-0.03 H LYMPHOCYTE # (test code = LY#) 0.97 K/mm3 1.0-5.0 L MONOCYTE # (test code = MO#) 0.99 K/mm3 0-0.8 H EOSINOPHIL # (test code = EO#) 0.14 K/mm3 0.0-0.5 N BASOPHIL # (test code = BA#) 0.08 K/mm3 0.0-0.2 N NUCLEATED RBC # (test code = NRBC#) 0.00 K/mm3 0.0-0.1 N MANUAL DIFF REQUIRED (test code = MDIFF) NO, ONLY SCAN NEEDED DIFFERENTIAL [id number] 12:08:00* Test Item Value Reference Range Interpretation Comments STAIN ACCEPTABILITY (test code = STN ACCEPTABLE) MORPHOLOGY COMMENT (test code = MOC) PLATELET ESTIMATE (test code = PLTEST) PLATELET MORPHOLOGY (test code = PLTMORPH) CBC W/AUTO [id number] 12:08:00* Test Item Value Reference Range Interpretation Comments WHITE BLOOD CELL (test code = WBC) 11.8 K/mm3 4.5-12.5 N RED BLOOD CELL (test code = RBC) 3.99 mill/mm3 4.0-5.8 L HEMOGLOBIN (test code = HGB) 11.9 gram/dL 13.0-17.5 L HEMATOCRIT (test code = HCT) 34.9 % 42.0-52.0 L MEAN CELL VOLUME (test code = MCV) 87.5 fL 80-98 N MEAN CELL HGB (test code = MCH) 29.8 picogram 27.0-33.0 N MEAN CELL HGB CONCETRATION (test code = MCHC) 34.1 gram/dL 33.0-36. 0 N RED CELL DISTRIBUTION WIDTH (test code = RDW) 13.5 % 11.6-16. 2 N RED CELL DISTRIBUTION WIDTH SD (test code = RDW-SD) 43.1 fL 37 .0-51.0 N PLATELET COUNT (test code = PLT) 407 K/mm3 150-450 N MEAN PLATELET VOLUME (test code = MPV) 10.2 fL 6.7-11.0 N NEUTROPHIL % (test code = NT%) 76.7 % 39.0-69.0 H IMMATURE GRANULOCYTE % (test code = IG%) 4.8 % 0.0-5.0 N LYMPHOCYTE % (test code = LY%) 8.2 % 25.0-55.0 L MONOCYTE % (test code = MO%) 8.4 % 0.0-10.0 N EOSINOPHIL % (test code = EO%) 1.2 % 0.0-5.0 N BASOPHIL % (test code = BA%) 0.7 % 0.0-1.0 N NUCLEATED RBC % (test code = NRBC%) 0.0 % 0-0 N NEUTROPHIL # (test code = NT#) 9.06 K/mm3 1.8-7.7 H IMMATURE GRANULOCYTE # (test code = IG#) 0.57 x10 3/uL 0-0.03 H LYMPHOCYTE # (test code = LY#) 0.97 K/mm3 1.0-5.0 L MONOCYTE # (test code = MO#) 0.99 K/mm3 0-0.8 H EOSINOPHIL # (test code = EO#) 0.14 K/mm3 0.0-0.5 N BASOPHIL # (test code = BA#) 0.08 K/mm3 0.0-0.2 N NUCLEATED RBC # (test code = NRBC#) 0.00 K/mm3 0.0-0.1 N MANUAL DIFF REQUIRED (test code = MDIFF) NO, ONLY SCAN NEEDED DIFFERENTIAL [id number] 12:08:00* Test Item Value Reference Range Interpretation Comments STAIN ACCEPTABILITY (test code = STN ACCEPTABLE) CABOT RINGS (test code = CAB) MORPHOLOGY COMMENT (test code = MOC) PLATELET ESTIMATE (test code = PLTEST) PLATELET MORPHOLOGY (test code = PLTMORPH) BASIC METABOLIC [id number] 12:02:00* Test Item Value Reference Range Interpretation Comments SODIUM (test code = NA) 133 mmol/L 136-145 L POTASSIUM (test code = K) 3.8 mmol/L 3.5-5.1 N CHLORIDE (test code = CL) 96.0 mmol/L 98-107 L CARBON DIOXIDE (test code = CO2) 29.0 mmol/L 21-32 N ANION GAP (test code = GAP) 11.8 10-20 N GLUCOSE (test code = GLU) 144 mg/dL 74-106 H BLOOD UREA NITROGEN (test code = BUN) 28 mg/dL 7-18 H GLOMERULAR FILTRATION RATE (test code = GFR) 57 mL/min >=60 Estimated GFR by using Modified MDRD formula.Chronic kidney disease is defined as either kidney damageor GFR <60 mL/min/1.73 m2 for >3 months. CREATININE (test code = CREAT) 1.20 mg/dL 0.7-1.3 N BUN/CREATININE RATIO (test code = BUN/CREA) 23.3 10-20 H CALCIUM (test code = CA) 9.4 mg/dL 8.5-10.1 N [id number]-[id number] 12:02:00* Test Item Value Reference Range Interpretation Comments TROPONIN-I (test code = TROPI) <0.015 ng/mL 0-0.045 N - XR CHEST 1 [id number] 11:10:00 FAX: Roel Arteaga MD [place]: St: REG FAX: Cesar Cruz DO Name: PASCUAL WHALEN [facility] : 1935 Age/S: 84/M [address] [facility] Unit #: [id number] Loc: [place] [address] Phys: Cesar Cruz DO Acct: [id number] Dis Date: Status: REG ER PHONE #: [phone] Exam Date: 10/07/2019 1055 FAX #: [phone] Reason: COUGH EXAMS: CPT CODE: [id number] XR CHEST 1 V 97647 HISTORY: Cough. COMPARISON: July 10, 2012. Location: [facility]. No acute infiltrates, effusion or congestion is noted. Suboptimal inspiration with dependent changes and elevated right hemidiaphragm. Mild cardiomegaly. IMPRESSION: No acute infiltrates, effusion or congestion. at 1110 Reported and signed by: Francisco Amaro M.D. CC: Roel Mojica; Cesar Cruz DO Technologist: RABIA PERERA JR Trnscrd Date/Time/By: 10/07/2019 (1110) : By: [email or web address] Orig Print D/T: S: 10/07/2019 (1113) PAGE 1 Signed Report - CT HEAD/BRAIN W/O CONT 2019-08-17 15:03:00 Name: PASCUAL WHALEN [facility] : 1935 Age/S: 84 / M Leanne Noguera Unit #: [id number] Loc: [place] [address] Phys: Roel Mojica MD Acct: [id number] Dis Date: Status: REG CLI PHONE #: [phone] Exam Date: 08/17/2019 1240 FAX #: [phone] Reason: WEAKNESS ALTERNED MENTAL STATUS EXAMS: CPT CODE: [id number] CT HEAD/BRAIN W/O CONT 63905 HISTORY: WEAKNESS ALTERNED MENTAL STATUS TECHNIQUE: Noncontrast 2.[address] of the head. Examination acquired within 24 hours of arrival. Automated exposure control for dose reduction. COMPARISON: None FINDINGS: No lacerations or contusions of the scalp or facial soft tissues. Calvarium and skull base are intact. No acute hemorrhage. No intracranial mass, mass effect, or midline shift. No effacement of the sulci or uriarte-white matter interface. Age-appropriate cortical atrophy is present. There is also decreased attenuation of the periventricular white matter compatible with microvascular ischemic changes. Visualized paranasal sinuses are clear. Mastoid air cells and middle ear cavities are clear. There is cerumen in the bilateral external auditory canals. There has been prior lens extraction bilaterally.. IMPRESSION: No acute intracranial process. Microvascular ischemic changes of the white matter with age-appropriate cortical atrophy. Location: [facility] at 1503 Reported and signed by: Remy Weeks MD CC: Roel Mojica Technologist:Soto Connell RT(R),(MR),(CT) CTDI: DLP: Trnscb Date/Time: 08/17/2019 (0449) t.SDR.[email or web address] Orig Print D/T: S: 08/17/2019 (9194) PAGE 1 Signed Report Vancomycin Level Dmjads4787-89-69 16:15:00* Test Item Value Reference Range Interpretation Comments Vancomycin Level Trough (test code = 4092-3) 6.3 5.0-10.0 [facility] Temple[facility]comycin Level Fkefhj6089-78-60 16:15:00* Test Item Value Reference Range Interpretation Comments Vancomycin Level Trough (test code = 4092-3) 6.3 5.0-10.0 [facility] TempleBlood Gteojiz0231-38-56 15:03:00* Test Item Value Reference Range Interpretation Comments Blood Culture (test code = 98797790) NO GROWTH AFTER 5 DAYS, FINAL REPORT [facility] Kqkljub1039-07-83 15:03:00* Test Item Value Reference Range Interpretation Comments Blood Culture (test code = 53103193) NO GROWTH AFTER 5 DAYS, FINAL REPORT [facility] Clubodium Vdxlm2022-78-95 14:42:00* Test Item Value Reference Range Interpretation Comments Sodium Level (test code = 2951-2) 133 136-145 L [facility] TemplePotassium Ynmei5195-39-95 14:42:00* Test Item Value Reference Range Interpretation Comments Potassium Level (test code = 2823-3) 3.1 3.5-5.1 L [facility] TempleChloride Lgjvf9126-50-53 14:42:00* Test Item Value Reference Range Interpretation Comments Chloride Level (test code = 2075-0) 88 98-107 L [facility] TempleCarbon Dioxide Vkyvw8257-99-77 14:42:00* Test Item Value Reference Range Interpretation Comments Carbon Dioxide Level (test code = 2028-9) 27 22-29 [facility] TempleAnion Ruj0892-28-84 14:42:00* Test Item Value Reference Range Interpretation Comments Anion Gap (test code = 34182-0) 21.1 8-16 H [facility] TempleBlood Urea Uaehgztn4193-52-20 14:42:00* Test Item Value Reference Range Interpretation Comments Blood Urea Nitrogen (test code = 3094-0) 35 7-26 H [facility] TempleCreatinine2019-08-30 14:42:00* Test Item Value Reference Range Interpretation Comments Creatinine (test code = 2160-0) 1.71 0.72-1.25 H [facility] TempleBUN/Creatinine Rnwny9136-45-62 14:42:00* Test Item Value Reference Range Interpretation Comments BUN/Creatinine Ratio (test code = 3097-3) 20 6-25 [facility] TempleEstimat Glomerular Filtration Rate 2019-05-22 14:42:00* Test Item Value Reference Range Interpretation Comments Estimat Glomerular Filtration Rate (test code = 696492128) 38 >60 L Ranges were taken from the National Kidney Disease Education Program and the [facility] literature.Reference ranges:60 or greater: Egyuqb98-00 ( for 3 consecutive months): Chronic kidney disease 15 or less: Kidney failureBaylor Scott & White Medical Center – TempleGlucose Gzokx5106-69-41 14:42:00* Test Item Value Reference Range Interpretation Comments Glucose Level (test code = OSN8356) 124 74-118 H [facility] TempleCalcium Ykxep2826-30-64 14:42:00* Test Item Value Reference Range Interpretation Comments Calcium Level (test code = 79963-2) 9.6 8.4-10.2 [facility] Clubodium Topkr2424-62-85 14:42:00* Test Item Value Reference Range Interpretation Comments Sodium Level (test code = 2951-2) 133 136-145 L [facility] TemplePotassium Rmnvj8611-20-07 14:42:00* Test Item Value Reference Range Interpretation Comments Potassium Level (test code = 2823-3) 3.1 3.5-5.1 L [facility] TempleChloride Aaksc3481-18-55 14:42:00* Test Item Value Reference Range Interpretation Comments Chloride Level (test code = 2075-0) 88 98-107 L [facility] TempleCarbon Dioxide Wdswq0130-02-26 14:42:00* Test Item Value Reference Range Interpretation Comments Carbon Dioxide Level (test code = 2028-9) 27 22-29 [facility] TempleAnion Ufr8441-36-67 14:42:00* Test Item Value Reference Range Interpretation Comments Anion Gap (test code = 75725-0) 21.1 8-16 H [facility] TempleBlood Urea Mdvgrehr0445-46-34 14:42:00* Test Item Value Reference Range Interpretation Comments Blood Urea Nitrogen (test code = 3094-0) 35 7-26 H [facility] TempleCreatinine2019-08-30 14:42:00* Test Item Value Reference Range Interpretation Comments Creatinine (test code = 2160-0) 1.71 0.72-1.25 H [facility] TempleBUN/Creatinine Jgwgr3357-82-86 14:42:00* Test Item Value Reference Range Interpretation Comments BUN/Creatinine Ratio (test code = 3097-3) 20 6-25 [facility] TempleEstimat Glomerular Filtration Rate 2019-05-22 14:42:00* Test Item Value Reference Range Interpretation Comments Estimat Glomerular Filtration Rate (test code = 268552962) 38 >60 L Ranges were taken from the National Kidney Disease Education Program and the [facility] Kidney Foundation literature.Reference ranges:60 or greater: Sbprom68-39 ( for 3 consecutive months): Chronic kidney disease 15 or less: Kidney failureBaylor Scott & White Medical Center – TempleGlucose Ipbhg7340-93-49 14:42:00* Test Item Value Reference Range Interpretation Comments Glucose Level (test code = EEZ1404) 124 74-118 H [facility] TempleCalcium Frbig9514-12-52 14:42:00* Test Item Value Reference Range Interpretation Comments Calcium Level (test code = 07565-6) 9.6 8.4-10.2 [facility] Sulutnw0745-40-57 11:13:00* Test Item Value Reference Range Interpretation Comments Bedside Glucose (test code = 51164-9) 179 70-120 H Meter ID: [id number] Glucose 2019-05-22 11:13:00* Test Item Value Reference Range Interpretation Comments Bedside Glucose (test code = 06851-4) 179 70-120 H Meter ID: [id number] Scott & White Medical Center – TempleTotal Bilirubin 2019-05-22 07:13:00* Test Item Value Reference Range Interpretation Comments Total Bilirubin (test code = 1975-2) 0.4 0.2-1.2 [facility] TempleAspartate Amino Transf (AST/SGOT) 2019-05-22 07:13:00* Test Item Value Reference Range Interpretation Comments Aspartate Amino Transf (AST/SGOT) (test code = Aspartate Amino Transf (AST/SGOT)) 15 [facility] TempleAlanine Aminotransferase (ALT/SGPT) 2019-05-22 07:13:00* Test Item Value Reference Range Interpretation Comments Alanine Aminotransferase (ALT/SGPT) (test code = 1742-6) 15 0-55 [facility] TempleTotal Cpmnmcl2249-07-15 07:13:00* Test Item Value Reference Range Interpretation Comments Total Protein (test code = 2885-2) 6.4 6.5-8.1 L [facility] TempleAlbumin2019-08-30 07:13:00* Test Item Value Reference Range Interpretation Comments Albumin (test code = 1751-7) 3.2 3.5-5.0 L [facility] TempleGlobulin2019-08-30 07:13:00* Test Item Value Reference Range Interpretation Comments Globulin (test code = 24813-8) 3.2 2.3-3.5 [facility] TempleAlbumin/Globulin Cxetp0292-27-91 07:13:00 * Test Item Value Reference Range Interpretation Comments Albumin/Globulin Ratio (test code = 1759-0) 1.0 0.8-2.0 [facility] TempleAlkaline Ysmdzkajwzz4085-76-87 07:13:00* Test Item Value Reference Range Interpretation Comments Alkaline Phosphatase (test code = 6768-6) 48 40-150 [facility] TempleTotal Pjrphbnxz3944-04-84 07:13:00* Test Item Value Reference Range Interpretation Comments Total Bilirubin (test code = 1975-2) 0.4 0.2-1.2 [facility] TempleAspartate Amino Transf (AST/SGOT) 2019-05-22 07:13:00* Test Item Value Reference Range Interpretation Comments Aspartate Amino Transf (AST/SGOT) (test code = Aspartate Amino Transf (AST/SGOT)) 15 34 [facility] TempleAlanine Aminotransferase (ALT/SGPT) 2019-05-22 07:13:00* Test Item Value Reference Range Interpretation Comments Alanine Aminotransferase (ALT/SGPT) (test code = 1742-6) 15 0-55 [facility] TempleTotal Swwmmzz5188-43-20 07:13:00* Test Item Value Reference Range Interpretation Comments Total Protein (test code = 2885-2) 6.4 6.5-8.1 L [facility] TempleAlbumin2019-08-30 07:13:00* Test Item Value Reference Range Interpretation Comments Albumin (test code = 1751-7) 3.2 3.5-5.0 L [facility] TempleGlobulin2019-08-30 07:13:00* Test Item Value Reference Range Interpretation Comments Globulin (test code = 33734-1) 3.2 2.3-3.5 [facility] TempleAlbumin/Globulin Kjfsl3758-24-21 07:13:00 * Test Item Value Reference Range Interpretation Comments Albumin/Globulin Ratio (test code = 1759-0) 1.0 0.8-2.0 [facility] TempleAlkaline Ycmwckkmhzk1651-18-31 07:13:00* Test Item Value Reference Range Interpretation Comments Alkaline Phosphatase (test code = 6768-6) 48 40-150 [facility] TempleWhite Blood Acwxq1140-69-23 06:53:00* Test Item Value Reference Range Interpretation Comments White Blood Count (test code = 6690-2) 11.22 4.8-10.8 H [facility] TempleRed Blood Gjkgq8779-92-20 06:53:00* Test Item Value Reference Range Interpretation Comments Red Blood Count (test code = 789-8) 4.34 4.3-5.7 [facility] TempleHemoglobin2019-08-30 06:53:00* Test Item Value Reference Range Interpretation Comments Hemoglobin (test code = 33361-2) 13.1 14.0-18.0 L [facility] TempleHematocrit2019-08-30 06:53:00* Test Item Value Reference Range Interpretation Comments Hematocrit (test code = 4544-3) 37.0 38.2-49.6 L [facility] TempleMean Corpuscular Bnpjxw2032-64-62 06:53:00* Test Item Value Reference Range Interpretation Comments Mean Corpuscular Volume (test code = 787-2) 85.3 81-99 [facility] TempleMean Corpuscular Xmtejciyip8389-12-76 06:53:00* Test Item Value Reference Range Interpretation Comments Mean Corpuscular Hemoglobin (test code = 785-6) 30.2 28-32 [facility] TempleMean Corpuscular Hemoglobin Concent 2019-05-22 06:53:00* Test Item Value Reference Range Interpretation Comments Mean Corpuscular Hemoglobin Concent (test code = 786-4) 35.4 31-35 H [facility] TempleRed Cell Distribution Cxrvl8154-06-60 06:53:00* Test Item Value Reference Range Interpretation Comments Red Cell Distribution Width (test code = 91915-7) 13.6 11.7 -14.4 [facility] TemplePlatelet Mqimo0802-26-85 06:53:00* Test Item Value Reference Range Interpretation Comments Platelet Count (test code = 777-3) 218 140-360 [facility] TempleNeutrophils (%) (Auto)2019-05-22 06:53:00 * Test Item Value Reference Range Interpretation Comments Neutrophils (%) (Auto) (test code = 64694-6) 72.5 38.7-80.0 [facility] TempleLymphocytes (%) (Auto)2019-05-22 06:53:00 * Test Item Value Reference Range Interpretation Comments Lymphocytes (%) (Auto) (test code = 736-9) 9.4 18.0-39.1 L [facility] TempleMonocytes (%) (Auto)2019-05-22 06:53:00* Test Item Value Reference Range Interpretation Comments Monocytes (%) (Auto) (test code = 5905-5) 11.4 4.4-11.3 H [facility] TempleEosinophils (%) (Auto)2019-05-22 06:53:00 * Test Item Value Reference Range Interpretation Comments Eosinophils (%) (Auto) (test code = 713-8) 5.3 0.0-6.0 [facility] TempleBasophils (%) (Auto)2019-05-22 06:53:00* Test Item Value Reference Range Interpretation Comments Basophils (%) (Auto) (test code = 706-2) 0.3 0.0-1.0 [facility] TempleIM GRANULOCYTES %2019-05-22 06:53:00* Test Item Value Reference Range Interpretation Comments IM GRANULOCYTES % (test code = IM GRANULOCYTES %) 1.1 0.0- 1.0 H [facility] TempleNeutrophils # (Auto)2019-05-22 06:53:00* Test Item Value Reference Range Interpretation Comments Neutrophils # (Auto) (test code = 751-8) 8.2 2.1-6.9 H [facility] TempleLymphocytes # (Auto)2019-05-22 06:53:00* Test Item Value Reference Range Interpretation Comments Lymphocytes # (Auto) (test code = 61181-0) 1.1 1.0-3.2 [facility] TempleMonocytes # (Auto)2019-05-22 06:53:00* Test Item Value Reference Range Interpretation Comments Monocytes # (Auto) (test code = 742-7) 1.3 0.2-0.8 H [facility] TempleEosinophils # (Auto)2019-05-22 06:53:00* Test Item Value Reference Range Interpretation Comments Eosinophils # (Auto) (test code = 711-2) 0.6 0.0-0.4 H [facility] TempleBasophils # (Auto)2019-05-22 06:53:00* Test Item Value Reference Range Interpretation Comments Basophils # (Auto) (test code = 704-7) 0.0 0.0-0.1 [facility] TempleAbsolute Immature Granulocyte (auto 2019-05-22 06:53:00* Test Item Value Reference Range Interpretation Comments Absolute Immature Granulocyte (auto (hi t code = Absolute Immature Granulocyte (auto) 0.12 0-0.1 H [facility] TempleWhite Blood Etxkk3526-19-69 06:53:00* Test Item Value Reference Range Interpretation Comments White Blood Count (test code = 6690-2) 11.22 4.8-10.8 H [facility] TempleRed Blood Mnwje7708-78-84 06:53:00* Test Item Value Reference Range Interpretation Comments Red Blood Count (test code = 789-8) 4.34 4.3-5.7 [facility] TempleHemoglobin2019-08-30 06:53:00* Test Item Value Reference Range Interpretation Comments Hemoglobin (test code = 96525-4) 13.1 14.0-18.0 L [facility] TempleHematocrit2019-08-30 06:53:00* Test Item Value Reference Range Interpretation Comments Hematocrit (test code = 4544-3) 37.0 38.2-49.6 L [facility] TempleMean Corpuscular Ntlwhj5529-31-88 06:53:00* Test Item Value Reference Range Interpretation Comments Mean Corpuscular Volume (test code = 787-2) 85.3 81-99 [facility] TempleMean Corpuscular Brzbjvrywy9275-48-49 06:53:00* Test Item Value Reference Range Interpretation Comments Mean Corpuscular Hemoglobin (test code = 785-6) 30.2 28-32 [facility] TempleMean Corpuscular Hemoglobin Concent 2019-05-22 06:53:00* Test Item Value Reference Range Interpretation Comments Mean Corpuscular Hemoglobin Concent (test code = 786-4) 35.4 31-35 H [facility] TempleRed Cell Distribution Bzugm7618-87-42 06:53:00* Test Item Value Reference Range Interpretation Comments Red Cell Distribution Width (test code = 65610-1) 13.6 11.7 -14.4 [facility] TemplePlatelet Kobsa6321-91-15 06:53:00* Test Item Value Reference Range Interpretation Comments Platelet Count (test code = 777-3) 218 140-360 [facility] TempleNeutrophils (%) (Auto)2019-05-22 06:53:00 * Test Item Value Reference Range Interpretation Comments Neutrophils (%) (Auto) (test code = 30387-9) 72.5 38.7-80.0 [facility] TempleLymphocytes (%) (Auto)2019-05-22 06:53:00 * Test Item Value Reference Range Interpretation Comments Lymphocytes (%) (Auto) (test code = 736-9) 9.4 18.0-39.1 L [facility] TempleMonocytes (%) (Auto)2019-05-22 06:53:00* Test Item Value Reference Range Interpretation Comments Monocytes (%) (Auto) (test code = 5905-5) 11.4 4.4-11.3 H [facility] TempleEosinophils (%) (Auto)2019-05-22 06:53:00 * Test Item Value Reference Range Interpretation Comments Eosinophils (%) (Auto) (test code = 713-8) 5.3 0.0-6.0 [facility] TempleBasophils (%) (Auto)2019-05-22 06:53:00* Test Item Value Reference Range Interpretation Comments Basophils (%) (Auto) (test code = 706-2) 0.3 0.0-1.0 [facility] TempleIM GRANULOCYTES %2019-05-22 06:53:00* Test Item Value Reference Range Interpretation Comments IM GRANULOCYTES % (test code = IM GRANULOCYTES %) 1.1 0.0- 1.0 H [facility] TempleNeutrophils # (Auto)2019-05-22 06:53:00* Test Item Value Reference Range Interpretation Comments Neutrophils # (Auto) (test code = 751-8) 8.2 2.1-6.9 H [facility] TempleLymphocytes # (Auto)2019-05-22 06:53:00* Test Item Value Reference Range Interpretation Comments Lymphocytes # (Auto) (test code = 06009-4) 1.1 1.0-3.2 [facility] TempleMonocytes # (Auto)2019-05-22 06:53:00* Test Item Value Reference Range Interpretation Comments Monocytes # (Auto) (test code = 742-7) 1.3 0.2-0.8 H [facility] TempleEosinophils # (Auto)2019-05-22 06:53:00* Test Item Value Reference Range Interpretation Comments Eosinophils # (Auto) (test code = 711-2) 0.6 0.0-0.4 H [facility] TempleBasophils # (Auto)2019-05-22 06:53:00* Test Item Value Reference Range Interpretation Comments Basophils # (Auto) (test code = 704-7) 0.0 0.0-0.1 [facility] TempleAbsolute Immature Granulocyte (auto 2019-05-22 06:53:00* Test Item Value Reference Range Interpretation Comments Absolute Immature Granulocyte (auto (hi t code = Absolute Immature Granulocyte (auto) 0.12 0-0.1 H [facility] TempleMagnesium Ssbtb7673-47-21 05:43:00* Test Item Value Reference Range Interpretation Comments Magnesium Level (test code = 72764-8) 1.9 1.3-2.1 [facility] TempleMagnesium Mvnlb4746-96-84 05:43:00* Test Item Value Reference Range Interpretation Comments Magnesium Level (test code = 23035-5) 1.9 1.3-2.1 [facility] TempleUrine GFI5980-10-35 17:04:00* Test Item Value Reference Range Interpretation Comments Urine WBC (test code = 5821-4) 0-5 0-5 [facility] TempleUrine ZJL0754-61-51 17:04:00* Test Item Value Reference Range Interpretation Comments Urine RBC (test code = 47490-3) 0-5 0-5 [facility] TempleUrine Bomqewfo1396-73-41 17:04:00* Test Item Value Reference Range Interpretation Comments Urine Bacteria (test code = 47491-5) RARE NONE [facility] TempleUrine Epithelial Mzdxl9505-70-68 17:04:00 * Test Item Value Reference Range Interpretation Comments Urine Epithelial Cells (test code = 08651-7) RARE NONE [facility] TempleUrine HMY8004-25-82 17:04:00* Test Item Value Reference Range Interpretation Comments Urine WBC (test code = 5821-4) 0-5 0-5 [facility] TempleUrine NTR9151-99-06 17:04:00* Test Item Value Reference Range Interpretation Comments Urine RBC (test code = 05843-1) 0-5 0-5 [facility] TempleUrine Hdaujrns2265-85-50 17:04:00* Test Item Value Reference Range Interpretation Comments Urine Bacteria (test code = 28266-8) RARE NONE [facility] TempleUrine Epithelial Abrpn4315-31-25 17:04:00 * Test Item Value Reference Range Interpretation Comments Urine Epithelial Cells (test code = 20972-4) RARE NONE [facility] TempleUrine Bboov9014-09-61 16:53:00* Test Item Value Reference Range Interpretation Comments Urine Color (test code = 5778-6) YELLOW YELLOW [facility] [id number] 16:53:00* Test Item Value Reference Range Interpretation Comments Urine Clarity (test code = 06905-9) CLEAR CLEAR [facility] Specific [id number] 16:53:00 * Test Item Value Reference Range Interpretation Comments Urine Specific Norman (test code = 5811-5) 1.015 1.010-1.02 5 [facility] [id number] 16:53:00* Test Item Value Reference Range Interpretation Comments Urine pH (test code = 32378-1) 6 5-7 [facility] Leukocyte [id number] 16:53:00* Test Item Value Reference Range Interpretation Comments Urine Leukocyte Esterase (test code = 71496-6) NEGATIVE NEGATIV E [facility] [id number] 16:53:00* Test Item Value Reference Range Interpretation Comments Urine Nitrite (test code = 32010-7) NEGATIVE NEGATIVE [facility] [id number] 16:53:00* Test Item Value Reference Range Interpretation Comments Urine Protein (test code = 40498-3) NEGATIVE NEGATIVE [facility] Glucose (UA)2019-05-17 16:53:00* Test Item Value Reference Range Interpretation Comments Urine Glucose (UA) (test code = 06421-0) NEGATIVE NEGATIVE [facility] [id number] 16:53:00* Test Item Value Reference Range Interpretation Comments Urine Ketones (test code = 18166-4) NEGATIVE NEGATIVE [facility] Lkhvggftnjyl2774-23-65 16:53:00* Test Item Value Reference Range Interpretation Comments Urine Urobilinogen (test code = 89714-1) 0.2 0.2-1 [facility] Xjgmggala7633-12-05 16:53:00* Test Item Value Reference Range Interpretation Comments Urine Bilirubin (test code = 1977-8) NEGATIVE NEGATIVE [facility] [id number] 16:53:00* Test Item Value Reference Range Interpretation Comments Urine Blood (test code = 41332-1) NEGATIVE NEGATIVE [facility] [id number] 16:53:00* Test Item Value Reference Range Interpretation Comments Urine Color (test code = 5778-6) YELLOW YELLOW [facility] [id number] 16:53:00* Test Item Value Reference Range Interpretation Comments Urine Clarity (test code = 41417-6) CLEAR CLEAR [facility] Specific Cbgojxq2766-59-69 16:53:00 * Test Item Value Reference Range Interpretation Comments Urine Specific Norman (test code = 5811-5) 1.015 1.010-1.02 5 [facility] [id number] 16:53:00* Test Item Value Reference Range Interpretation Comments Urine pH (test code = 80382-9) 6 5-7 [facility] Leukocyte [id number] 16:53:00* Test Item Value Reference Range Interpretation Comments Urine Leukocyte Esterase (test code = 90732-5) NEGATIVE NEGATIV E [facility] Puuveug2142-94-03 16:53:00* Test Item Value Reference Range Interpretation Comments Urine Nitrite (test code = 70156-2) NEGATIVE NEGATIVE [facility] Heocrfd3653-31-63 16:53:00* Test Item Value Reference Range Interpretation Comments Urine Protein (test code = 36224-5) NEGATIVE NEGATIVE [facility] Glucose (UA)2019-05-17 16:53:00* Test Item Value Reference Range Interpretation Comments Urine Glucose (UA) (test code = 38300-0) NEGATIVE NEGATIVE [facility] Soyunbq3781-05-21 16:53:00* Test Item Value Reference Range Interpretation Comments Urine Ketones (test code = 01252-0) NEGATIVE NEGATIVE [facility] Qkmzumqcmsyx4009-55-10 16:53:00* Test Item Value Reference Range Interpretation Comments Urine Urobilinogen (test code = 62832-3) 0.2 0.2-1 [facility] Vmqniiqar5314-44-42 16:53:00* Test Item Value Reference Range Interpretation Comments Urine Bilirubin (test code = 1977-8) NEGATIVE NEGATIVE [facility] Ugcik8785-07-79 16:53:00* Test Item Value Reference Range Interpretation Comments Urine Blood (test code = 98878-7) NEGATIVE NEGATIVE [facility] Natriuretic Nujmrfv7586-32-81 15:43:00* Test Item Value Reference Range Interpretation Comments B-Type Natriuretic Peptide (test code = 78655-6) 158.3 0-100 H [facility] Natriuretic Yqzhjml0280-17-77 15:43:00* Test Item Value Reference Range Interpretation Comments B-Type Natriuretic Peptide (test code = 85760-8) 158.3 0-100 H [facility] SINGLE ([facility])2019-05-17 15:35:00 [place] [address] Patient Name: PASCUAL WHALEN MR #: [id number] : 1935 Age/Sex: 83/M Req #: [id number] Adm Physician: Ordered by: MONTSE CHI CABANA ATTENDANT Report #: [id number] Location: ER Room/Bed: Procedure: [id number] DX/CHEST SINGLE (PORTABLE) Exam Date: 05/17/19 Exam Time: 1509 REPORT STATUS: Signed Examination: Single AP view of the chest. COMPARISON: None. INDICATIO N: Cellulitis IMPRESSION: 1. Lines and Tubes: None 2. Lungs a re well-inflated. Elevation of the right hemidiaphragm, which may be due to ev entration. Mild atelectatic changes in the right lower lobe. No consolidation or pulmonary edema. 3-4 mm rounded radiopaque densities in the right upper lob e may represent pulmonary nodules or calcified granulomas. Prior films, if ashish ilable, would be helpful for comparison. If no prior films can be obtained, re commend follow-up chest PA and lateral in 3 months to document stability. 3. Cardiomediastinal silhouette is normal. Mild central congestion. 4. No acu te bony abnormalities. Signed by: Dr. Jimmie Cruz M.D. on 05/17/2019 3:39 PM Dictated By: JIMMIE CRUZ MD 153 Transcribed By: SHOBHA on 05/17/19 1539 COPY TO: MONTSE CHI CABANA ATTENDANT Creatine Kinase [id number] 15:34:00* Test Item Value Reference Range Interpretation Comments Creatine Kinase MB (test code = 56373-0) 1.10 0-5.0 [facility] Temple[facility]roponin [id number] 15:34:00* Test Item Value Reference Range Interpretation Comments Troponin I (test code = GHW5802) 0.011 0-0.300 [facility] Temple[facility] Kinase [id number] 15:34:00* Test Item Value Reference Range Interpretation Comments Creatine Kinase MB (test code = 35225-8) 1.10 0-5.0 [facility] Temple[facility]roponin [id number] 15:34:00* Test Item Value Reference Range Interpretation Comments Troponin I (test code = AYH7773) 0.011 0-0.300 [facility] Temple[facility] Acid [id number] 15:27:00* Test Item Value Reference Range Interpretation Comments Lactic Acid Level (test code = Lactic Acid Level) 20.1 4.5- 19.8 HH Results repeated and called to Jairo Da iSlva/ELOISE at 1525 on 05/17/19 by Salty Ortiz. Read back and verified.[facility] Creatine [id number] 15:27:00* Test Item Value Reference Range Interpretation Comments Creatine Kinase (test code = 2157-6) 57 30-200 [facility] Temple[facility] Acid [id number] 15:27:00* Test Item Value Reference Range Interpretation Comments Lactic Acid Level (test code = Lactic Acid Level) 20.1 4.5- 19.8 HH Results repeated and called to Jairo Menon at 1525 on 05/17/19 by Salty Ortiz. Read back and verified.[facility] Creatine Dyqeqj6340-15-71 15:27:00* Test Item Value Reference Range Interpretation Comments Creatine Kinase (test code = 2157-6) 57 30-200 [facility] TempleProthrombin [id number] 15:24:00* Test Item Value Reference Range Interpretation Comments Prothrombin Time (test code = 5902-2) 13.5 11.9-14.5 [facility] Temple[facility]thromb Time International Ratio 2019-05-17 15:24:00* Test Item Value Reference Range Interpretation Comments Prothromb Time International Ratio (test code = 6301-6) 0.98 Oral Anticoagulant Therapy INR Values:1. Low Intensity Therapy 1.5 - 2.02 . Moderate Intensity Therapy 2.0 - 3.03. High Intensity Therapy(1) 2.5 - 3. 54. High Intensity Therapy(2) 3.0 - 4.05. Panic Value INR > 5.0 [facility] Temple[facility] Partial Thromboplast Time 2019-05-17 15:24:00* Test Item Value Reference Range Interpretation Comments Activated Partial Thromboplast Time (test code = 36388-6) 32.0 23.8-35.5 [facility] Temple[facility]thrombin [id number] 15:24:00* Test Item Value Reference Range Interpretation Comments Prothrombin Time (test code = 5902-2) 13.5 11.9-14.5 [facility] Temple[facility] Time International Ratio 2019-05-17 15:24:00* Test Item Value Reference Range Interpretation Comments Prothromb Time International Ratio (test code = 6301-6) 0.98 Oral Anticoagulant Therapy INR Values:1. Low Intensity Therapy 1.5 - 2.02 . Moderate Intensity Therapy 2.0 - 3.03. High Intensity Therapy(1) 2.5 - 3. 54. High Intensity Therapy(2) 3.0 - 4.05. Panic Value INR > 5.0 [facility] Partial Thromboplast Time 2019-05-17 15:24:00* Test Item Value Reference Range Interpretation Comments Activated Partial Thromboplast Time (test code = 11967-8) 32.0 23.8-35.5 [facility]
[2020-02-23] MEDS ORDERED: SODIUM CHLORIDE 0.9% 1000ML 1,000 ML IV STA (14:04)
[2020-02-23 14:55] LABS: BASOPHILS % 0.4 % (0.0-1.0); EOSINOPHILS % 0.2 % (0.0-6.0); HEMATOCRIT 31.8 % (38.2-49.6); HEMOGLOBIN 10.6 g/dL (14.0-18.0); LYMPHOCYTES # (AUTO) 0.4 (1.0-3.2); LYMPHOCYTES % 3.8 % (18.0-39.1); MEAN CORPUSCULAR HGB CONC 33.3 g/dL (31-35); MEAN CORPUSCULAR VOLUME 86.9 fL (81-99); MONOCYTES # (AUTO) 0.1 (0.2-0.8); MONOCYTES % 0.8 % (4.4-11.3); NEUTROPHILS # (AUTO) 9.5 (2.1-6.9); NEUTROPHILS % 92.6 % (38.7-80.0); PLATELET COUNT 440 x10e3/uL (140-360); RED BLOOD COUNT 3.66 x10e6/uL (4.3-5.7)
[2020-02-23 15:06] LABS: PARTIAL THROMBOPLASTIN TIME 33.4 seconds (23.8-35.5)
--- NOTE | 2020-02-23 15:07 | Diagnostic Imaging Report ---
EXAMINATION: CHEST SINGLE (PORTABLE) INDICATION: Hypoxia COMPARISON: Chest are graft a 09/02/2019 FINDINGS: LINES/TUBES:None LUNGS:The lungs are well-inflated. Mild right basilar patchy opacities. Unchanged right upper lung calcified granulomas. PLEURA:No pleural effusion or pneumothorax. MEDIASTINUM:The cardiomediastinal silhouette appears normal in size and shape. BONES/SOFT TISSUES:No acute osseous injury. ABDOMEN:No free air under the diaphragm. IMPRESSION: Mild right basilar patchy opacities, more likely subsegmental atelectasis than superimposed aspiration or pneumonia. Signed by: Abigail Gilbert MD on 02/23/2020 3:04 PM
[2020-02-23 15:10] LABS: ALBUMIN 3.1 g/dL (3.5-5.0); ALBUMIN/GLOBULIN RATIO 0.7 (0.8-2.0); ANION GAP 17.3 mmol/L (8-16); CALCIUM 9.8 mg/dL (8.4-10.2); CREATININE, SERUM 1.23 mg/dL (0.72-1.25); POTASSIUM 4.3 mmol/L (3.5-5.1)
[2020-02-23 15:12] LABS: INR 1.1; PROTHROMBIN TIME 14.9 seconds (11.9-14.5)
[2020-02-23] MEDS ORDERED: SODIUM CHLORIDE 0.9% 500ML 500 ML IV ONE (15:15)
[2020-02-23 15:17] LABS: CREATINE KINASE MB 0.8 ng/mL (0-5.0)
[2020-02-23 15:22] LABS: B-TYPE NATRIURETIC PEPTIDE2 148.7 pg/mL (0-100)
[2020-02-23] MEDS ORDERED: AZITHROMYCIN 500MG/NS 250 ML 250 ML IV SCH (15:30)
[2020-02-23 15:39] LABS: BILIRUBIN,URINE MODERATE (NEGATIVE); CLARITY,URINE TURBID (CLEAR); COLOR,URINE RED (YELLOW); KETONES,URINE NEGATIVE (NEGATIVE); LEUKOCYTE ESTERASE ,URINE NEGATIVE (NEGATIVE); NITRITE,URINE POSITIVE (NEGATIVE); PROTEIN,URINE DIPSTICK >=300 (NEGATIVE); URINE UROBILINOGEN 0.2 mg/dL (0.2 - 1)
[2020-02-23 15:40] LABS: RBC,URINE 21-50 /HPF (0-5)
[2020-02-23] MEDS ORDERED: IOPAMIDOL 370 MG/ML 200 ML INFUS..BTL INJ ONE (15:49)
[2020-02-23] MEDS ORDERED: SODIUM CHLORIDE 0.9% 500ML 500 ML ONE (15:50)
--- NOTE | 2020-02-23 16:20 | NUR ---
Patients arnett catheter replaced with a 3 way 24 F arnett cather and connected to drainage bag.
--- NOTE | 2020-02-23 16:40 | Emergency Department Note ---
History of Present Illnes History of Present Illness Chief Complaint: Genitourinary History of Present Illness This is a 84 year old male PATIENT IN [facility] CATHETER REPLACEMENT; PER NURSE THERE THEY TRIED TO CHANGE THE CATHETER AND THEN COULD NOT GET IT BACK IN. PATIENT WITH COMPLAINTS OF DIFFICULTY URINATING, GROSS HEMATURIA NOTED. 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 Any updates have been documented here. Past Medical History Recent Fever: No Clinical Suspicion of Infectio: No New/Unexplained Change in Ment: No Past Medical History: Hypertension, Diabetes, CHF, Depression, GERD, Hyperlipedemia Other Medical History: NEUROPATHY Past Surgical History: Knee Replacement Other Surgery: LEFT ARM FX LEFT KNEE REPLACEMENT Social History Smoking Cessation: Unknown if ever smoked Counseling Performed: No Alcohol Use: None Any Illegal Drug Use: No TB Exposure/Symptoms: No Physically hurt or threatened: No Family History Family history of heart diseas: No Other Last Tetanus: UTD Any Pre-Existing Lines (PICC,: No Is patient up to date on immun: Yes Last Flu: utd Last Pneumovax: utd Review of Systems Review of Systems Constitutional: no symptoms EENTM: no symptoms Cardiovascular: no symptoms Respiratory: no symptoms Gastrointestinal: no symptoms Genitourinary: hematuria Musculoskeletal: no symptoms Neurological: no symptoms Psychological: no symptoms Endocrine: no symptoms Hematological/Lymphatic: no symptoms Review of other systems All other systems reviewed and negative. Physical Exam Related Data Allergies: Coded Allergies: No Known Drug Allergies (Verified Allergy, Mild, 05/31/19) Triage Vital Signs Vital Signs Date Time Temp Pulse Resp B/P (MAP) Pulse Ox O2 Delivery O2 Flow Rate FiO2 02/23/20 13:35 99.6 113 18 141/68 94 Physical Exam CONSTITUTIONAL Constitutional: well-developed, well-nourished HENT HENT: normocephalic, atraumatic, oropharynx clear/moist, nose normal HENT L/R: left ext ear normal, right ext ear normal EYES Eyes: PERRL, conjunctivae normal NECK Neck: ROM normal PULMONARY Pulmonary: effort normal, rales (BIBASILAR), rhonchi (DIFFUSE SCATTERED); respiratory distress, chest tenderness CARDIOVASCULAR Cardiovascular: regular rhythm, heart sounds normal, capillary refill normal, tachycardia, murmur (1/6 SYS MURMUR) GASTROINTESTINAL Abdominal: soft, nontender, bowel sounds normal GENITOURINARY Genitourinary: other (BLEEDING FROM URETHRA) SKIN Skin: warm, dry MUSCULOSKELETAL Musculoskeletal: ROM normal NEUROLOGICAL Neurological: alert, oriented x 3, no gross motor or sensory deficits PSYCHOLOGICAL Psychological: mood/affect normal, judgement normal Results Laboratory Result Diagram: 02/23/20 1439 02/23/20 1439 Laboratory Laboratory Tests Test 02/23/20 14:39 White Blood Count 10.22 x10e3/uL (4.8-10.8) Red Blood Count 3.66 x10e6/uL (4.3-5.7) Hemoglobin 10.6 g/dL (14.0-18.0) Hematocrit 31.8 % (38.2-49.6) Mean Corpuscular Volume 86.9 fL (81-99) Mean Corpuscular Hemoglobin 29.0 pg (28-32) Mean Corpuscular Hemoglobin Concent 33.3 g/dL (31-35) Red Cell Distribution Width 14.0 % (11.7-14.4) Platelet Count 440 x10e3/uL (140-360) Neutrophils (%) (Auto) 92.6 % (38.7-80.0) Lymphocytes (%) (Auto) 3.8 % (18.0-39.1) Monocytes (%) (Auto) 0.8 % (4.4-11.3) Eosinophils (%) (Auto) 0.2 % (0.0-6.0) Basophils (%) (Auto) 0.4 % (0.0-1.0) Neutrophils # (Auto) 9.5 (2.1-6.9) Lymphocytes # (Auto) 0.4 (1.0-3.2) Monocytes # (Auto) 0.1 (0.2-0.8) Eosinophils # (Auto) 0.0 (0.0-0.4) Basophils # (Auto) 0.0 (0.0-0.1) Absolute Immature Granulocyte (auto 0.22 x10e3/uL (0-0.1) Prothrombin Time 14.9 seconds (11.9-14.5) Prothromb Time International Ratio 1.10 Activated Partial Thromboplast Time 33.4 seconds (23.8-35.5) Urine Color Red (YELLOW) Urine Clarity Turbid (CLEAR) Urine pH 8.5 (5 - 7) Urine Specific [place] 1.020 (1.010-1.025) Urine Protein >=300 (NEGATIVE) Urine Glucose (UA) 1+ (NEGATIVE) Urine Ketones Negative (NEGATIVE) Urine Blood Large (NEGATIVE) Urine Nitrite Positive (NEGATIVE) Urine Bilirubin Moderate (NEGATIVE) Urine Urobilinogen 0.2 mg/dL (0.2 - 1) Urine Leukocyte Esterase Negative (NEGATIVE) Urine RBC 21-50 /HPF (0-5) Urine WBC None /HPF (0-5) Urine Epithelial Cells None /LPF (NONE) Urine Bacteria None /HPF (NONE) Sodium Level 131 mmol/L (136-145) Potassium Level 4.3 mmol/L (3.5-5.1) Chloride Level 94 mmol/L (98-107) Carbon Dioxide Level 24 mmol/L (22-29) Anion Gap 17.3 mmol/L (8-16) Blood Urea Nitrogen 25 mg/dL (7-26) Creatinine 1.23 mg/dL (0.72-1.25) Estimat Glomerular Filtration Rate 56 ML/MIN (60-) BUN/Creatinine Ratio 20 (6-25) Glucose Level 154 mg/dL (74-118) Lactic Acid Level 3.6 mmol/L (0.5-2.0) Calcium Level 9.8 mg/dL (8.4-10.2) Magnesium Level 2.0 MG/DL (1.3-2.1) Total Bilirubin 0.5 mg/dL (0.2-1.2) Aspartate Amino Transf (AST/SGOT) 17 IU/L (5-34) Alanine Aminotransferase (ALT/SGPT) 13 IU/L (0-55) Alkaline Phosphatase 68 IU/L (40-150) Creatine Kinase 43 IU/L (30-200) Creatine Kinase MB 0.80 ng/mL (0-5.0) Troponin I 0.040 ng/mL (0-0.300) B-Type Natriuretic Peptide 148.7 pg/mL (0-100) Total Protein 7.8 g/dL (6.5-8.1) Albumin 3.1 g/dL (3.5-5.0) Globulin 4.7 g/dL (2.3-3.5) Albumin/Globulin Ratio 0.7 (0.8-2.0) Laboratory Tests Test 02/23/20 14:39 White Blood Count 10.22 x10e3/uL (4.8-10.8) Red Blood Count 3.66 x10e6/uL (4.3-5.7) Hemoglobin 10.6 g/dL (14.0-18.0) Hematocrit 31.8 % (38.2-49.6) Mean Corpuscular Volume 86.9 fL (81-99) Mean Corpuscular Hemoglobin 29.0 pg (28-32) Mean Corpuscular Hemoglobin Concent 33.3 g/dL (31-35) Red Cell Distribution Width 14.0 % (11.7-14.4) Platelet Count 440 x10e3/uL (140-360) Neutrophils (%) (Auto) 92.6 % (38.7-80.0) Lymphocytes (%) (Auto) 3.8 % (18.0-39.1) Monocytes (%) (Auto) 0.8 % (4.4-11.3) Eosinophils (%) (Auto) 0.2 % (0.0-6.0) Basophils (%) (Auto) 0.4 % (0.0-1.0) Neutrophils # (Auto) 9.5 (2.1-6.9) Lymphocytes # (Auto) 0.4 (1.0-3.2) Monocytes # (Auto) 0.1 (0.2-0.8) Eosinophils # (Auto) 0.0 (0.0-0.4) Basophils # (Auto) 0.0 (0.0-0.1) Absolute Immature Granulocyte (auto 0.22 x10e3/uL (0-0.1) Prothrombin Time 14.9 seconds (11.9-14.5) Prothromb Time International Ratio 1.10 Activated Partial Thromboplast Time 33.4 seconds (23.8-35.5) Urine Color Red (YELLOW) Urine Clarity Turbid (CLEAR) Urine pH 8.5 (5 - 7) Urine Specific [place] 1.020 (1.010-1.025) Urine Protein >=300 (NEGATIVE) Urine Glucose (UA) 1+ (NEGATIVE) Urine Ketones Negative (NEGATIVE) Urine Blood Large (NEGATIVE) Urine Nitrite Positive (NEGATIVE) Urine Bilirubin Moderate (NEGATIVE) Urine Urobilinogen 0.2 mg/dL (0.2 - 1) Urine Leukocyte Esterase Negative (NEGATIVE) Urine RBC 21-50 /HPF (0-5) Urine WBC None /HPF (0-5) Urine Epithelial Cells None /LPF (NONE) Urine Bacteria None /HPF (NONE) Sodium Level 131 mmol/L (136-145) Potassium Level 4.3 mmol/L (3.5-5.1) Chloride Level 94 mmol/L (98-107) Carbon Dioxide Level 24 mmol/L (22-29) Anion Gap 17.3 mmol/L (8-16) Blood Urea Nitrogen 25 mg/dL (7-26) Creatinine 1.23 mg/dL (0.72-1.25) Estimat Glomerular Filtration Rate 56 ML/MIN (60-) BUN/Creatinine Ratio 20 (6-25) Glucose Level 154 mg/dL (74-118) Lactic Acid Level 3.6 mmol/L (0.5-2.0) Calcium Level 9.8 mg/dL (8.4-10.2) Magnesium Level 2.0 MG/DL (1.3-2.1) Total Bilirubin 0.5 mg/dL (0.2-1.2) Aspartate Amino Transf (AST/SGOT) 17 IU/L (5-34) Alanine Aminotransferase (ALT/SGPT) 13 IU/L (0-55) Alkaline Phosphatase 68 IU/L (40-150) Creatine Kinase 43 IU/L (30-200) Creatine Kinase MB 0.80 ng/mL (0-5.0) Troponin I 0.040 ng/mL (0-0.300) B-Type Natriuretic Peptide 148.7 pg/mL (0-100) Total Protein 7.8 g/dL (6.5-8.1) Albumin 3.1 g/dL (3.5-5.0) Globulin 4.7 g/dL (2.3-3.5) Albumin/Globulin Ratio 0.7 (0.8-2.0) Lab results reviewed: Yes Imaging Imaging results reviewed: Yes Impressions EXAMINATION: CHEST SINGLE (PORTABLE) INDICATION: Hypoxia COMPARISON: Chest are graft a 09/02/2019 FINDINGS: LINES/TUBES:None LUNGS:The lungs are well-inflated. Mild right basilar patchy opacities. Unchanged right upper lung calcified granulomas. PLEURA:No pleural effusion or pneumothorax. MEDIASTINUM:The cardiomediastinal silhouette appears normal in size and shape. BONES/SOFT TISSUES:No acute osseous injury. ABDOMEN:No free air under the diaphragm. IMPRESSION: Mild right basilar patchy opacities, more likely subsegmental atelectasis than superimposed aspiration or pneumonia. Signed by: Abigail Gilbert MD on 02/23/2020 3:04 PM Diagnostics Tests Diagnostic test(s) reviewed: Yes Procedures 12 Lead ECG Interpretation Marine Biologist: Interpreted by ED physician Date: Feb 23, 2020 Time: 14:55 Rhythm: sinus tachycardia Rate: tachycardia (136) Conduction: incomplete RBBB Q waves: III Clinical Impression: abnormal ECG Critical Care Time Subsequent provider I assumed direction of critical care for this patient from another provider of my specialty. Assessment & Plan Reassessment Reassessment BLEEDING AFTER MAGDALENO ATTEMPTED TO BE CHANGED AT [facility], AND HYPOXIA - CHECK CBC, CHEM'S, CARDIAC ENZYMES, BNP, CXR, BLOOD CX'S, UA AND CX, LACTIC ACID, CT ABD/PELVIS (AND i SPOKE WITH DR DENISE RIVERA CT CYSTOGRAM) - R/O SEPSIS, PNEUMONIA, URETHRAL INJURY, ANEMIA, ELECTROLYTE ABNL, UTI/CYSTITIS POSSIBLE SEPSIS Source: suspected urine or pneumonia SIRS: only HR >90 Organ Dysfunction: Lactic Acid (time): 3.6 Blood cultures collected Broad Spectrum Antibiotic given: Zosyn Although pt does not meet criteria for sepsis, only 1 SIRS criteria, I still treated him as sepsis, gave Abx's and IVF's and rechecked Lactate. Also, pt had recent negative COVID19 test but must consider the possibility of COVID19 infection during this pandemic due to his hypoxia without sx's. Assessment & Plan Final Impression: (1) HYPOXEMIA (2) PNEUMONIA, UNSPECIFIED ORGANISM (3) GROSS HEMATURIA (4) Acute on chronic renal insufficiency Assessment & Plan I spoke with Dr Denise rivera 3-way 24Fr Magdaleno with 10 cc balloon, CT cystogram, will see pt. Spoke with Dr Bryant for admission - agrees with abmyron'Albertina Araya Disposition: ADMITTED Last Vital Signs Date Time Temp Pulse Resp B/P (MAP) Pulse Ox O2 Delivery O2 Flow Rate FiO2 02/23/20 14:22 116 18 130/67 100 02/23/20 13:35 99.6 Home Meds Reported Medications Doxylamine Succinate (UNISOM SLEEP AID) 25 Mg Tablet, 25 MG PO HS 05/17/19 Methocarbamol (METHOCARBAMOL) 750 Mg Tablet, 750 MG PO HS, #30 TAB 05/17/19 Doxazosin Mesylate (DOXAZOSIN MESYLATE) 2 Mg Tablet, 4 MG PO HS, #30 TAB 05/17/19 Glimepiride (GLIMEPIRIDE) 2 Mg Tablet, 2 MG PO DAILY, TAB 05/17/19 Isosorbide Mononitrate (ISOSORBIDE MONONITRATE ER) 60 Mg Tab.er.24h, 60 MG PO DAILY 05/17/19 Tramadol Hcl (ULTRAM) 50 Mg Tablet, 50 MG PO Q6H PRN for Mild Pain (1-3) or Fever>100.8, TAB 05/17/19 Liothyronine Sodium (LIOTHYRONINE SODIUM) 5 Mcg Tablet, 5 MCG PO DAILY 05/17/19 Metformin Hcl (METFORMIN HCL ER) 500 Mg Tab.er.24, 1000 MG PO BID, #60 TAB 05/17/19 [Areds] No Conflict Check, 1 TAB PO DAILY 05/17/19 Gabapentin (GABAPENTIN) 300 Mg Capsule, 300 MG PO BID, #60 CAP 07/31/18 Aspirin (ASPIR 81) 81 Mg Tablet.dr, DAILY 07/31/18 Furosemide (FUROSEMIDE) 40 Mg Tablet, 40 MG PO BID, #30 TAB 10/01/14 Gemfibrozil (GEMFIBROZIL) 600 Mg Tablet, 600 MG PO BID 10/01/14 Metolazone (METOLAZONE) 2.5 Mg Tablet, 2.5 MG PO DAILY 10/01/14 Medications in the ED Sodium Chloride 1,000 ml @ 0 mls/hr Q0M STAT IV Last administered on 02/23/20at 14:45; Admin Dose 999 MLS/HR; Start 02/23/20 at 14:04; Stop 02/23/20 at 14:08; Status DC Sodium Chloride 500 ml @ 0 mls/hr Q0M ONCE IV Last administered on 02/23/20at 15:25; Admin Dose 999 MLS/HR; Start 02/23/20 at 15:15; Stop 02/23/20 at 15:16; Status DC Azithromycin 250 ml @ 200 mls/hr Q24H IV Last administered on 02/23/20at 15:45; Admin Dose 200 MLS/HR; Start 02/23/20 at 15:30; Stop 03/01/20 at 15:29 Piperacillin Sod/ Tazobactam Sod 50 ml @ 50 mls/hr 0500,1100,1700,2300 IV ; Start 02/23/20 at 17:00; Stop 03/01/20 at 16:59 Iopamidol STK-MED ONCE INJ ; Start 02/23/20 at 15:49; Stop 02/23/20 at 15:44; Status DC Sodium Chloride 500 ml @ ud STK-MED ONCE .ROUTE ; Start 02/23/20 at 15:50; Stop 02/23/20 at 15:44; Status DC LOUISE JACKSON MD Feb 23, 2020 16:40
--- NOTE | 2020-02-23 16:48 | NUR ---
Covid swab obtained and sent to lab.
[2020-02-23] MEDS: PIPER-TAZ 3.375 GM 50 ML IV SCH (17:15)
--- NOTE | 2020-02-23 17:44 | NUR ---
attempted to call patients next of kin to get verbal consent for picc line unable to get in contact. Left a voicemail.
--- NOTE | 2020-02-23 17:52 | NUR ---
Spoke with patient's daughter Jessica Ramires who is POA and gave verbal consent for PICC line. Second nurse to verify was Garth NAVAS.
--- OUTSIDE RECORDS SUMMARY | 2020-02-23 17:58 | XMS REPORT | Continuity of Care Document ---
Author Author [facility] Organization [facility] Address [address] [place] [address] Phone Unavailable Care Team Providers Care Hoof Trimmer Name Role Phone GRICELDA PEARCE MD PCP Gallo JACKSON Attphys Andreea Valencia Jr Attphys Payers Payer Name Policy Type Policy Number Effective Date Expiration Date Diony [facility] [place] [id number] 2018 00:00:00 [facility] Problems Condition Name Condition Details Condition Category Status Onset Date Resolution Date Last Treatment Date Treating Clinician Comments Source DX: R07.2=PRECORDIAL PAIN DR CAVANAUGH DX: R07.2=PRECORDIAL PAIN DR CAVANAUGH Active 05/02/2017 [facility] Active 2017-05-02 00:00:00 2017-05-14 07:59:00 [facility] 782.3 - EDEMA 782. 3 - EDEMA Active 09/14/2013 [facility] [place] Diagnosis Active 2013-09-14 00:01:00 2013-12-02 07:55:00 [facility] [place] Acute on chronic renal insufficiency Acute on chronic renal insufficiency Problem Active [facility] Cellulitis Cellulitis Problem Active [facility] Arthritis (disorder) Arth ritis (disorder) Active [facility] 2017-05-17 01:02:31 LILIA Mena [facility] Degeneration of intervertebral disc (disorder) Degeneration of intervertebral disc (disorder) Active Problem 05/17/2017 LILIA Mena [facility] Problem Active 2017-05-17 01:02:3 1 LILIA Mena, [facility] Diabetes mellitus (disorder) D iabetes mellitus (disorder) Active Problem 05/17/2017 LILIA Mena, [facility] Problem Active 2017-05-17 01:02:31 LILIA Mena, [facility] Diabetic neuropathy (disorder) Diabetic neuropathy (disorder) Active Problem 05/17/2017 LILIA Mena, [facility] Problem Active 2017-05-17 01:02:31 LILIA Mena, [facility] Hypertensive disorder, systemic arterial (disorder) Hypertensive disorder, systemic arterial (disorder) Active Problem 05/17/2017 [facility] Problem Active 2017-05-17 01:02:31 LILIA Mena [facility] PRECORDIAL PAIN PREC ORDIAL PAIN Active [facility] Diagnosis Active 2017-05-14 07:59:00 [facility] Allergies, Adverse Reactions, Alerts Allergy Name Allergy Type Status Severity Reaction(s) Onset Date Inacti ve Date Treating Clinician Comments Source No Known Allergies DA Active U 2012-07-14 00:00:00 [facility] Social History Social Habit Start Date Stop Date Quantity Comments Source Social History 2017-05-15 04:59:00 2017-05-15 04:59:00 [facility] Medications Ordered Medication Name Filled Medication Name Start Date Stop Da te Current Medication? Ordering Clinician Indication Dosage Frequency Signature (SIG) Comments Components Source Suk578 325 Mg Tab, 325 Mg Oral Dth219 325 Mg Tab, 325 Mg Ora l 2014-10-07 00:00:00 2018-07-31 00:00:00 Jennifer Moreau 325 Twice A Day [facility] Nrc5t 1 Ea Tab, 1 Ea Oral Nrc5t 1 Ea Tab, 1 Ea Oral 2014-10-07 0 0:00:00 2018-07-31 00:00:00 Jennifer Moreau 1 Ev mello 4 Hours as needed for Pain [facility] Nrc7.5t 1 Ea Tab, 1 Ea Oral Nrc7.5t 1 Ea Tab, 1 Ea Oral 00:00:00 2018-07-31 00:00:00 No Dayron Moreau 1 Ev mello 4 Hours as needed for Pain [facility] Gcve1c2 2 Mg/Ml Vial, 4 Mg Intraven Aalb5b2 2 Mg/Ml Vial, 4 Mg Intraven 2014-10-07 00:00:00 2018-07-31 00:00:00 No Dayron Moreau 4 Every 6 Hours as needed for Nausea [facility] Areds Areds Yes 1 Daily [facility] Aspirin (Aspir 81) 81 Mg Tablet. Aspirin (Aspir 81) 81 Mg Tablet. Yes Daily [facility] Doxazosin Mesylate 2 Mg Tablet Doxazosin Mesylate 2 Mg Tablet Yes 4 Bedtime [facility] Doxylamine Succinate (Unisom Sleep Aid) 25 Mg Tablet D oxylamine Succinate (Unisom Sleep Aid) 25 Mg Tablet Yes 25 Bedtim e [facility] Furosemide 40 Mg Tablet Furosemide 40 Mg Tablet Yes 40 Twice A Day [facility] Gabapentin 300 Mg Capsule Gabapentin 300 Mg Capsule Yes 300 Twice A Day [facility] Gemfibrozil 600 Mg Tablet Gemfibrozil 600 Mg Tablet Yes 600 Twice A Day [facility] Glimepiride 2 Mg Tablet Glimepiride 2 Mg Tablet Yes 2 Daily [facility] Isosorbide Mononitrate (Isosorbide Mononitrate Er) 60 Mg Tab.er.24h Isosorbide Mononitrate (Isosorbide Mononitrate Er) 60 Mg Tab.er.24h Yes 60 Daily [facility] Liothyronine Sodium 5 Mcg Tablet Liothyronine Sodium 5 Mcg Tablet Yes 5 Daily [facility] Metformin Hcl (Metformin Hcl Er) 500 Mg Tab.er.24 Metf ormin Hcl (Metformin Hcl Er) 500 Mg Tab.er.24 Yes 1000 Twice A Day [facility] Methocarbamol 750 Mg Tablet Methocarbamol 750 Mg Tablet Yes 750 Bedtime [facility] Metolazone 2.5 Mg Tablet Metolazone 2.5 Mg Tablet Yes 2.5 Daily [facility] Tramadol Hcl (Ultram) 50 Mg Tablet Tramadol Hcl (Ultram) 50 Mg Tablet Yes 50 Every 6 Hours as needed for Mild Pain (1-3) Or Fever>100.8 [facility] Captopril 25 Mg Tablet, 25 Mg Oral Captopril 25 Mg Tablet, 25 Mg Oral 2019-05-17 00:00:00 No 25 Twice A Day [facility] Captopril 25 Mg Tablet, 25 Mg Oral Captopril 25 Mg Tablet, 25 Mg Oral 2019-05-17 00:00:00 No 25 Twice A Day [facility] Fluconazole 100 Mg Tablet, 50 Mg Oral Fluconazole 100 Mg Tablet, 50 Mg Oral 2019-05-17 00:00:00 No 50 [facility] Metolazone 5 Mg Tablet, 2.5 Mg Pe Oral Metolazone 5 Mg Tablet, 2 .5 Mg Pe Oral 2019-05-17 00:00:00 No 2.5 Daily [facility] Nitroglycerin (Nitrostat) 0.4 Mg Tab.subl, Sublingua l Nitroglycerin (Nitrostat) 0.4 Mg Tab.subl, Sublingual 2019-05-17 00:00:00 No [facility] Ranitidine Hcl 300 Mg Capsule, Ranitidine Hcl 300 Mg Capsule, 2019-05-17 00:00:00 No [facility] Alpha Lipoic Acid , Oral Alpha Lipoic Acid , Oral 2017 00:00:00 No Daily [facility] B2/Vit A,C & E/Lut/Zeaxanth/Mn (Icaps Tablet) 1 Each T ablet.er, Oral B2/Vit A,C & E/Lut/Zeaxanth/Mn (Icaps Tablet) 1 Each Tablet.er, Oral 2018-07-31 00:00:00 No Daily [facility] Chlorthalidone 25 Mg Tablet, 25 Mg Oral Chlorthalidone 25 Mg Tablet, 25 Mg Oral 2018-07-31 00:00:00 No 25 Daily [facility] Fish Oil , 360 Mg Oral Fish Oil , 360 Mg Oral 2018-07-31 00:00:0 0 No 360 Daily [facility] Glimepiride 2 Mg Tablet, 2 Mg Oral Glimepiride 2 Mg Tablet, 2 Mg Oral 2018-07-31 00:00:00 No 2 Daily [facility] Multivitamin (Multivitamins) 1 Each Capsule, Oral Mu ltivitamin (Multivitamins) 1 Each Capsule, Oral 2018-07-31 00:00:00 No D aily [facility] Aspirin 81 Mg Tab.chew, 81 Mg Oral Aspirin 81 Mg Tab.chew, 81 Mg Oral 2014-10-07 00:00:00 No 81 Daily [facility] Naproxen Sodium (Aleve) 220 Mg Tablet, 1 Tab Oral Napr oxen Sodium (Aleve) 220 Mg Tablet, 1 Tab Oral 2014-10-07 00:00:00 No 1 As Needed as needed for Pain [facility] Tramadol Hcl (Ultram 50MG*) 50 Mg Tab, 50 Mg Oral Tram adol Hcl (Ultram 50MG*) 50 Mg Tab, 50 Mg Oral 2014-10-07 00:00:00 No 50 Every 6 Hours as needed for Pain [facility] Vital Signs Vital Name Observation Time Observation Value Comments Source Height 2017-05-14 14:12:00 182.88 cm [facility] BMI Calculated 2017-05-14 14:12:00 Leonela theast Weight 2017-05-14 14:12:00 [facility] Procedures Procedure Date / Time Performed Performing Clinician Brandie lopez Open reduction and fixation of fracture [facility] Encounters Start Date/Time End Date/Time Encounter Type Admission Type Attendi [facility] Emergency Department Facility Care Department Encounter ID Source 2019-05-31 15:35:00 2019-05-31 18:14:00 Departed Emergency Room [facility] [id number] [facility] 2019-05-17 16:52:00 2019-05-22 16:44:00 Discharged Inpatient 1 LOUISE JACKSON [facility] [id number] [facility] 2018-07-31 08:08:00 2018-07-31 08:08:00 Registered Surgical Day Care [facility] [id number] [facility] 2017-05-14 12:51:00 2017-05-15 04:59:[address] [facility] [id number] [facility] 2017-05-14 07:51:00 2017-05-14 23:59:00 Outpatient Leia Cavanaugh [facility] [id number] 2013-10-21 08:33:00 2013-10-21 23:59:00 Outpatient MHIEA LT MHIEALT [id number] [facility] [place] 2013-09-30 06:42:00 2013-09-30 23:59:00 OD MHIEALT MHIEALT [id number] [facility] [place] 2013-09-30 06:42:00 2013-09-30 23:59:00 Outpatient MHIEA LT [facility]IEALT [id number] [facility] [place] Results Test Description Test Time Test Comments Results Result Comments Source CHEST SINGLE (PORTABLE) 2020-02-23 15:02:00 [place] [address] Patient Name: PASCUAL WHALEN MR #: [id number] : 1935 Age/Sex: 84/M Req #: [id number] Adm Physician: Ordered by: LOUISE JACKSON MD Report #: [id number] Location: ER Room/Bed: Procedure: [id number] DX/CHEST SINGLE (PORTABLE) Exam Date: 02/23/20 Exam Time: 1438 REPORT STATUS: Signed EXAMINATION: CHEST SINGLE (PORTABLE) INDICATION: Hypoxia COMPARISON: Chest are graft a 09/02/2019 FINDINGS: LINES/TUBES:None LUNGS:The lungs are well-inflated. Mild right basilar patchy opacities. Unchanged right upper lung calcified granulomas. PLEURA:No pleural effusion or pneumothorax. MEDIASTINUM:The cardiomediastinal silhouette appears normal in size and shape. BONES/SOFT TISSUES:No acute osseous injury. ABDOMEN:No free air under the diaphragm. IMPRESSION: Mild right basilar patchy opacities, more likely subsegmental atelectasis than superimposed aspiration or pneumonia. Signed by: Katia Dee MD on 02/23/2020 3:04 PM Dictated By: KATIA DEE MD 1504 Transcribed By: SHOBHA on 02/23/20 1504 COPY TO: LOUISE JACKSON MD GLUBED 2019-10-12 13:00:00 Test Item GLUBED (test code = GLUBED) 152 mg/dL 74-106 H Performed by certified mat cleaning machine operator at [facility] [id number] 05:59:00* Test Item Value Reference Range Interpretation Comments CREATININE (test code = CREAT) 1.20 mg/dL 0.7-1.3 N [id number] 05:44:00* Test Item Value Reference Range Interpretation Comments GLUBED (test code = GLUBED) 94 mg/dL 74-106 N Performed by certified mat cleaning machine operator at [facility] [id number] 21:45:00* Test Item Value Reference Range Interpretation Comments GLUBED (test code = GLUBED) 88 mg/dL 74-106 N Performed by certified mat cleaning machine operator at [facility] [id number] 18:17:00* Test Item Value Reference Range Interpretation Comments GLUBED (test code = GLUBED) 93 mg/dL 74-106 N Performed by certified mat cleaning machine operator at [facility] [id number] 12:15:00* Test Item Value Reference Range Interpretation Comments GLUBED (test code = GLUBED) 129 mg/dL 74-106 H Performed by certified mat cleaning machine operator at [facility] [id number] 06:14:00* Test Item Value Reference Range Interpretation Comments GLUBED (test code = GLUBED) 91 mg/dL 74-106 N Performed by certified mat cleaning machine operator at [facility] [id number] 21:07:00* Test Item Value Reference Range Interpretation Comments GLUBED (test code = GLUBED) 73 mg/dL 74-106 L Performed by certified mat cleaning machine operator at [facility] [id number] 16:44:00* Test Item Value Reference Range Interpretation Comments GLUBED (test code = GLUBED) 105 mg/dL 74-106 N Performed by certified mat cleaning machine operator at [facility] [id number] 16:44:00* Test Item Value Reference Range Interpretation Comments GLUBED (test code = GLUBED) 122 mg/dL 74-106 H Performed by certified mat cleaning machine operator at [facility] [id number] 06:02:00* Test Item Value Reference Range Interpretation Comments GLUBED (test code = GLUBED) 110 mg/dL 74-106 H Performed by certified mat cleaning machine operator at [facility] [id number] 20:38:00* Test Item Value Reference Range Interpretation Comments GLUBED (test code = GLUBED) 125 mg/dL 74-106 H Performed by certified mat cleaning machine operator at [facility] [id number] 19:20:00* Test Item Value Reference Range Interpretation Comments GLUBED (test code = GLUBED) 112 mg/dL 74-106 H Performed by certified mat cleaning machine operator at [facility] [id number] 19:20:00* Test Item Value Reference Range Interpretation Comments GLUBED (test code = GLUBED) 143 mg/dL 74-106 H Performed by certified mat cleaning machine operator at [facility] [id number] 05:41:00* Test Item Value Reference Range Interpretation Comments GLUBED (test code = GLUBED) 101 mg/dL 74-106 N Performed by certified mat cleaning machine operator at [facility] [id number] 21:51:00* Test Item Value Reference Range Interpretation Comments GLUBED (test code = GLUBED) 101 mg/dL 74-106 N Performed by certified mat cleaning machine operator at [facility] [id number] 17:41:00* Test Item Value Reference Range Interpretation Comments GLUBED (test code = GLUBED) 112 mg/dL 74-106 H Performed by certified mat cleaning machine operator at [facility] [id number] 17:41:00* Test Item Value Reference Range Interpretation Comments GLUBED (test code = GLUBED) 156 mg/dL 74-106 H Performed by certified mat cleaning machine operator at [facility] [id number] 07:14:00* Test Item Value Reference Range Interpretation Comments GLUBED (test code = GLUBED) 129 mg/dL 74-106 H Performed by certified mat cleaning machine operator at [facility] [id number] 22:19:00* Test Item Value Reference Range Interpretation Comments GLUBED (test code = GLUBED) 106 mg/dL 74-106 N Performed by certified mat cleaning machine operator at [facility] - CTA CHEST FOR [id number] 16:47:00 Name: PASCUAL WHALEN [facility] : 1935 Age/S: 84 / M [address] [facility] Unit #: [id number] Loc: [facility] [place] [address] Phys: Cesar Cruz DO Acct: [id number] Dis Date: Status: ADM IN PHONE #: [phone] Exam Date: 10/07/2019 1553 FAX #: [phone] Reason: evaluate for PE EXAMS: CPT CODE: [id number] [place] [address] EXAM: CT of the chest; INFORMATION: Hypoxia; [...] CODING PURPOSES ONLY RESULT CODE: Location code: [facility] at 1647 Reported and signed by: Cheikh Weiss M.D. CC: Bud Julien MD; Roel Mojica; Cesar Cruz DO Technologist:CRESCENCIO GABRIEL, RT(R) CT CTDI: DLP: Trnscb Date/Time: 10/07/2019 (164) Mando.GRW Orig Print D/T: S: 10/08/2019 (2020) PAGE 1 Signed Report [id number] 15:43:00* Test Item Value Reference Range Interpretation Comments D-DIMER (test code = DDIMER) 1804.00 ng/mLFEU 0-500 HH Results called to [id number] by V.LAB.WV 10/07/19 1542Critical results verified and read back [...] skin infections -Liver cirrhosis - B-TYPE NATRIURETIC [id number] 15:18:00* Test Item Value Reference Range Interpretation Comments B-TYPE NATRIURETIC PEPTIDE (test code = BNP) 238.32 pgram/mL 0-100 H CBC W/AUTO [id number] 12:51:00* Test Item Value Reference Range Interpretation [...] = MDIFF) NO, ONLY SCAN NEEDED DIFFERENTIAL [id number] 12:51:00* Test Item Value Reference Range Interpretation Comments STAIN ACCEPTABILITY (test code = STN ACCEPTABLE) STAIN ACCEPTABLE PLATELET ESTIMATE (test code = PLTEST) ADEQUATE PLATELET MORPHOLOGY (test code = PLTMORPH) NORMAL CBC W/AUTO [id number] 12:09:00* Test Item Value Reference Range Interpretation [...] = MDIFF) NO, ONLY SCAN NEEDED DIFFERENTIAL [id number] 12:09:00* Test Item Value Reference Range Interpretation Comments STAIN ACCEPTABILITY (test code = STN ACCEPTABLE) MORPHOLOGY COMMENT (test code = MOC) PLATELET ESTIMATE (test code = PLTEST) PLATELET MORPHOLOGY (test code = PLTMORPH) CBC W/AUTO [id number] 12:08:00* Test Item Value Reference Range Interpretation [...] = MDIFF) NO, ONLY SCAN NEEDED DIFFERENTIAL [id number] 12:08:00* Test Item Value Reference Range Interpretation Comments STAIN ACCEPTABILITY (test code = STN ACCEPTABLE) CABOT RINGS (test code = CAB) MORPHOLOGY COMMENT (test code = MOC) PLATELET ESTIMATE (test code = PLTEST) PLATELET MORPHOLOGY (test code = PLTMORPH) CBC W/AUTO [id number] 12:08:00* Test Item Value Reference Range Interpretation [...] = MDIFF) NO, ONLY SCAN NEEDED DIFFERENTIAL [id number] 12:08:00* Test Item Value Reference Range Interpretation Comments STAIN ACCEPTABILITY (test code = STN ACCEPTABLE) MORPHOLOGY COMMENT (test code = MOC) PLATELET ESTIMATE (test code = PLTEST) PLATELET MORPHOLOGY (test code = PLTMORPH) CBC W/AUTO [id number] 12:08:00* Test Item Value Reference Range Interpretation [...] = MDIFF) NO, ONLY SCAN NEEDED DIFFERENTIAL [id number] 12:08:00* Test Item Value Reference Range Interpretation Comments STAIN ACCEPTABILITY (test code = STN ACCEPTABLE) CABOT RINGS (test code = CAB) MORPHOLOGY COMMENT (test code = MOC) PLATELET ESTIMATE (test code = PLTEST) PLATELET MORPHOLOGY (test code = PLTMORPH) BASIC METABOLIC [id number] 12:02:00* Test Item Value Reference Range Interpretation [...] code = CA) 9.4 mg/dL 8.5-10.1 N [id number] 12:02:00* Test Item Value Reference Range Interpretation Comments TROPONIN-I (test code = TROPI) <0.015 ng/mL 0-0.045 N - XR CHEST 1 [id number] 11:10:00 FAX: Roel Arteaga MD Brady: St: REG FAX: Cesar Cruz DO Name: PASCUAL WHALEN [facility] : 1935 Age/S: 84/M [address] Unit #: [id number] Loc: [place] [address] Phys: Cesar Cruz DO Acct: [id number] Dis Date: Status: REG ER PHONE #: [phone] Exam Date: 10/07/2019 1055 FAX #: [phone] Reason: COUGH EXAMS: CPT CODE: [id number] XR CHEST 1 V 51798 HISTORY: Cough. COMPARISON: July 10, 2012. Location: [facility]. No acute infiltrates, effusion or congestion [...] W/O CONT 2019-08-17 15:03:00 Name: PASCUAL WHALEN [facility] : 1935 Age/S: 84 / M [address] Unit #: [id number] Loc: [place] [address] Phys: Roel Mojica MD Acct: [id number] Dis Date: Status: REG CLI PHONE #: [phone] Exam Date: 08/17/2019 1240 FAX #: [phone] Reason: WEAKNESS ALTERNED MENTAL STATUS EXAMS: CPT CODE: [id number] CT HEAD/BRAIN W/O CONT 50536 HISTORY: WEAKNESS ALTERNED MENTAL STATUS TECHNIQUE: Noncontrast [...] white matter with age-appropriate cortical atrophy. Location: [facility] at 1503 Reported and signed by: Remy Weeks MD CC: Roel Mojica Technologist:Soto Connell RT(R),(MR),(CT) CTDI: DLP: Trnscb Date/Time: 08/17/2019 (2500) t.SDR.RR31 Orig Print D/T: S: 08/17/2019 (1508) PAGE 1 Signed Report Vancomycin Level [id number] 16:15:00* Test Item Value Reference Range Interpretation Comments Vancomycin Level Trough (test code = 4092-3) 6.3 5.0-10.0 [facility] [id number] 16:15:00* Test Item Value Reference Range Interpretation Comments Vancomycin Level Trough (test code = 4092-3) 6.3 5.0-10.0 [facility] [id number] 15:03:00* Test Item Value Reference Range Interpretation Comments Blood Culture (test code = 09112854) NO GROWTH AFTER 5 DAYS, FINAL REPORT [facility] [id number] 15:03:00* Test Item Value Reference Range Interpretation Comments Blood Culture (test code = 58827844) NO GROWTH AFTER 5 DAYS, FINAL REPORT [facility] [id number] 14:42:00* Test Item Value Reference Range Interpretation Comments Sodium Level (test code = 2951-2) 133 136-145 L [facility] [id number] 14:42:00* Test Item Value Reference Range Interpretation Comments Potassium Level (test code = 2823-3) 3.1 3.5-5.1 L [facility] [id number] 14:42:00* Test Item Value Reference Range Interpretation Comments Chloride Level (test code = 2075-0) 88 98-107 L [facility] Dioxide [id number] 14:42:00* Test Item Value Reference Range Interpretation Comments Carbon Dioxide Level (test code = 2028-9) 27 22-29 [facility] [id number] 14:42:00* Test Item Value Reference Range Interpretation Comments Anion Gap (test code = 51939-4) 21.1 8-16 H [facility] Urea [id number] 14:42:00* Test Item Value Reference Range Interpretation Comments Blood Urea Nitrogen (test code = 3094-0) 35 7-26 H [facility]eville[facility]inine2019-08-30 14:42:00* Test Item Value Reference Range Interpretation Comments Creatinine (test code = 2160-0) 1.71 0.72-1.25 H [facility]/Creatinine [id number] 14:42:00* Test Item Value Reference Range Interpretation Comments BUN/Creatinine Ratio (test code = 3097-3) 20 6-25 [facility] Glomerular Filtration Rate 2019-05-22 14:42:00* Test Item Value Reference Range Interpretation Comments Estimat Glomerular Filtration Rate (test code = 625501518) 38 >60 L Ranges were taken from the National Kidney Disease Education Program and the [facility] Kidney Foundation literature.Reference ranges:60 or greater: Erakaq15-23 ( for 3 consecutive months): Chronic kidney disease 15 or less: Kidney failureCHRISTUS Spohn Hospital BeevilleGlucose [id number] 14:42:00* Test Item Value Reference Range Interpretation Comments Glucose Level (test code = LLC1779) 124 74-118 H [facility]eville[facility]cium [id number] 14:42:00* Test Item Value Reference Range Interpretation Comments Calcium Level (test code = 42541-4) 9.6 8.4-10.2 [facility] [id number] 14:42:00* Test Item Value Reference Range Interpretation Comments Sodium Level (test code = 2951-2) 133 136-145 L [facility] Zwqfj3660-74-82 14:42:00* Test Item Value Reference Range Interpretation Comments Potassium Level (test code = 2823-3) 3.1 3.5-5.1 L [facility] [id number] 14:42:00* Test Item Value Reference Range Interpretation Comments Chloride Level (test code = 2075-0) 88 98-107 L [facility]eville[facility] Dioxide [id number] 14:42:00* Test Item Value Reference Range Interpretation Comments Carbon Dioxide Level (test code = 2028-9) 27 22-29 [facility]eville[facility]ion [id number] 14:42:00* Test Item Value Reference Range Interpretation Comments Anion Gap (test code = 95685-9) 21.1 8-16 H [facility] Urea [id number] 14:42:00* Test Item Value Reference Range Interpretation Comments Blood Urea Nitrogen (test code = 3094-0) 35 7-26 H [facility]eville[facility]inine2019-08-30 14:42:00* Test Item Value Reference Range Interpretation Comments Creatinine (test code = 2160-0) 1.71 0.72-1.25 H [facility]Creatinine [id number] 14:42:00* Test Item Value Reference Range Interpretation Comments BUN/Creatinine Ratio (test code = 3097-3) 20 6-25 [facility] [place]evilleEstimat Glomerular Filtration Rate 2019-05-22 14:42:00* Test Item Value Reference Range Interpretation Comments Estimat Glomerular Filtration Rate (test code = 694988359) 38 >60 L Ranges were taken from the National Kidney Disease Education Program and the [facility] Kidney Foundation literature.Reference ranges:60 or greater: Hwlcip24-91 ( for 3 consecutive months): Chronic kidney disease 15 or less: Kidney failureCHRISTUS [facility]ohn Hospital BeevilleGlucose Asxxr6453-41-36 14:42:00* Test Item Value Reference Range Interpretation Comments Glucose Level (test code = LOM1163) 124 74-118 H [facility] BeevilleCalcium Mlaux1613-39-65 14:42:00* Test Item Value Reference Range Interpretation Comments Calcium Level (test code = 23202-9) 9.6 8.4-10.2 [facility] Osjcxpw1716-59-29 11:13:00* Test Item Value Reference Range Interpretation Comments Bedside Glucose (test code = 08403-9) 179 70-120 H Meter ID: [id number] Glucose 2019-05-22 11:13:00* Test Item Value Reference Range Interpretation Comments Bedside Glucose (test code = 88932-1) 179 70-120 H Meter ID: [id number] Spohn Hospital [place]evilleTotal Bilirubin 2019-05-22 07:13:00* Test Item Value Reference Range Interpretation Comments Total Bilirubin (test code = 1975-2) 0.4 0.2-1.2 [facility] BeevilleAspartate Amino Transf (AST/SGOT) 2019-05-22 07:13:00* Test Item Value Reference Range Interpretation Comments Aspartate Amino Transf (AST/SGOT) (test code = Aspartate Amino Transf (AST/SGOT)) 15 5-34 [facility] [place]evilleAlanine Aminotransferase (ALT/SGPT) 2019-05-22 07:13:00* Test Item Value Reference Range Interpretation Comments Alanine Aminotransferase (ALT/SGPT) (test code = 1742-6) 15 0-55 [facility] [place]evilleTotal Beybdml2241-03-40 07:13:00* Test Item Value Reference Range Interpretation Comments Total Protein (test code = 2885-2) 6.4 6.5-8.1 L [facility] [place]evilleAlbumin2019-08-30 07:13:00* Test Item Value Reference Range Interpretation Comments Albumin (test code = 1751-7) 3.2 3.5-5.0 L [facility] BeevilleGlobulin2019-08-30 07:13:00* Test Item Value Reference Range Interpretation Comments Globulin (test code = 48282-4) 3.2 2.3-3.5 [facility] [place]evilleAlbumin/Globulin Mibjp1028-27-01 07:13:00 * Test Item Value Reference Range Interpretation Comments Albumin/Globulin Ratio (test code = 1759-0) 1.0 0.8-2.0 [facility] BeevilleAlkaline Zeowbhmsffb6839-12-20 07:13:00* Test Item Value Reference Range Interpretation Comments Alkaline Phosphatase (test code = 6768-6) 48 40-150 [facility] [place]evilleTotal Amlpenuuw1799-38-40 07:13:00* Test Item Value Reference Range Interpretation Comments Total Bilirubin (test code = 1975-2) 0.4 0.2-1.2 [facility] [place]evilleAspartate Amino Transf (AST/SGOT) 2019-05-22 07:13:00* Test Item Value Reference Range Interpretation Comments Aspartate Amino Transf (AST/SGOT) (test code = Aspartate Amino Transf (AST/SGOT)) 15 5-34 [facility] [place]evilleAlanine Aminotransferase (ALT/SGPT) 2019-05-22 07:13:00* Test Item Value Reference Range Interpretation Comments Alanine Aminotransferase (ALT/SGPT) (test code = 1742-6) 15 0-55 [facility] [place]evilleTotal Ouufiia8475-83-54 07:13:00* Test Item Value Reference Range Interpretation Comments Total Protein (test code = 2885-2) 6.4 6.5-8.1 L [facility] [place]evilleAlbumin2019-08-30 07:13:00* Test Item Value Reference Range Interpretation Comments Albumin (test code = 1751-7) 3.2 3.5-5.0 L [facility] [place]evilleGlobulin2019-08-30 07:13:00* Test Item Value Reference Range Interpretation Comments Globulin (test code = 15042-6) 3.2 2.3-3.5 [facility] BeevilleAlbumin/Globulin Qxcec7719-67-08 07:13:00 * Test Item Value Reference Range Interpretation Comments Albumin/Globulin Ratio (test code = 1759-0) 1.0 0.8-2.0 [facility] BeevilleAlkaline Knnpaofvepq0145-13-91 07:13:00* Test Item Value Reference Range Interpretation Comments Alkaline Phosphatase (test code = 6768-6) 48 40-150 [facility] [place]evilleWhite Blood Zlien0148-80-00 06:53:00* Test Item Value Reference Range Interpretation Comments White Blood Count (test code = 6690-2) 11.22 4.8-10.8 H [facility] [place]evilleRed Blood Satfr3263-39-69 06:53:00* Test Item Value Reference Range Interpretation Comments Red Blood Count (test code = 789-8) 4.34 4.3-5.7 [facility] BeevilleHemoglobin2019-08-30 06:53:00* Test Item Value Reference Range Interpretation Comments Hemoglobin (test code = 07991-1) 13.1 14.0-18.0 L [facility] [place]evilleHematocrit2019-08-30 06:53:00* Test Item Value Reference Range Interpretation Comments Hematocrit (test code = 4544-3) 37.0 38.2-49.6 L [facility] [place]evilleMean Corpuscular Bjjiyh2409-38-66 06:53:00* Test Item Value Reference Range Interpretation Comments Mean Corpuscular Volume (test code = 787-2) 85.3 81-99 [facility] [place]evilleMean Corpuscular Jvzeioremv6930-47-88 06:53:00* Test Item Value Reference Range Interpretation Comments Mean Corpuscular Hemoglobin (test code = 785-6) 30.2 28-32 [facility] [place]evilleMean Corpuscular Hemoglobin Concent 2019-05-22 06:53:00* Test Item Value Reference Range Interpretation Comments Mean Corpuscular Hemoglobin Concent (test code = 786-4) 35.4 31-35 H [facility] [place]evilleRed Cell Distribution Pajmb3482-91-74 06:53:00* Test Item Value Reference Range Interpretation Comments Red Cell Distribution Width (test code = 72843-4) 13.6 11.7 -14.4 [facility] BeevillePlatelet Jbehl7802-99-20 06:53:00* Test Item Value Reference Range Interpretation Comments Platelet Count (test code = 777-3) 218 140-360 [facility] BeevilleNeutrophils (%) (Auto)2019-05-22 06:53:00 * Test Item Value Reference Range Interpretation Comments Neutrophils (%) (Auto) (test code = 48817-5) 72.5 38.7-80.0 [facility] BeevilleLymphocytes (%) (Auto)2019-05-22 06:53:00 * Test Item Value Reference Range Interpretation Comments Lymphocytes (%) (Auto) (test code = 736-9) 9.4 18.0-39.1 L [facility] [place]evilleMonocytes (%) (Auto)2019-05-22 06:53:00* Test Item Value Reference Range Interpretation Comments Monocytes (%) (Auto) (test code = 5905-5) 11.4 4.4-11.3 H [facility] [place]evilleEosinophils (%) (Auto)2019-05-22 06:53:00 * Test Item Value Reference Range Interpretation Comments Eosinophils (%) (Auto) (test code = 713-8) 5.3 0.0-6.0 [facility] [place]evilleBasophils (%) (Auto)2019-05-22 06:53:00* Test Item Value Reference Range Interpretation Comments Basophils (%) (Auto) (test code = 706-2) 0.3 0.0-1.0 [facility] [place]evilleIM GRANULOCYTES %2019-05-22 06:53:00* Test Item Value Reference Range Interpretation Comments IM GRANULOCYTES % (test code = IM GRANULOCYTES %) 1.1 0.0- 1.0 H [facility] [place]evilleNeutrophils # (Auto)2019-05-22 06:53:00* Test Item Value Reference Range Interpretation Comments Neutrophils # (Auto) (test code = 751-8) 8.2 2.1-6.9 H [facility] [place]evilleLymphocytes # (Auto)2019-05-22 06:53:00* Test Item Value Reference Range Interpretation Comments Lymphocytes # (Auto) (test code = 38553-8) 1.1 1.0-3.2 [facility] [place]evilleMonocytes # (Auto)2019-05-22 06:53:00* Test Item Value Reference Range Interpretation Comments Monocytes # (Auto) (test code = 742-7) 1.3 0.2-0.8 H [facility] [place]evilleEosinophils # (Auto)2019-05-22 06:53:00* Test Item Value Reference Range Interpretation Comments Eosinophils # (Auto) (test code = 711-2) 0.6 0.0-0.4 H [facility] [place]evilleBasophils # (Auto)2019-05-22 06:53:00* Test Item Value Reference Range Interpretation Comments Basophils # (Auto) (test code = 704-7) 0.0 0.0-0.1 [facility] BeevilleAbsolute Immature Granulocyte (auto 2019-05-22 06:53:00* Test Item Value Reference Range Interpretation Comments Absolute Immature Granulocyte (auto (hi t code = Absolute Immature Granulocyte (auto) 0.12 0-0.1 H [facility] [place]evilleWhite Blood Udlhe5635-17-34 06:53:00* Test Item Value Reference Range Interpretation Comments White Blood Count (test code = 6690-2) 11.22 4.8-10.8 H [facility] [place]evilleRed Blood Taayt9729-30-88 06:53:00* Test Item Value Reference Range Interpretation Comments Red Blood Count (test code = 789-8) 4.34 4.3-5.7 [facility] BeevilleHemoglobin2019-08-30 06:53:00* Test Item Value Reference Range Interpretation Comments Hemoglobin (test code = 52622-8) 13.1 14.0-18.0 L [facility] [place]evilleHematocrit2019-08-30 06:53:00* Test Item Value Reference Range Interpretation Comments Hematocrit (test code = 4544-3) 37.0 38.2-49.6 L [facility] [place]Mean Corpuscular Jvsalu7161-51-26 06:53:00* Test Item Value Reference Range Interpretation Comments Mean Corpuscular Volume (test code = 787-2) 85.3 81-99 [facility] [place]Mean Corpuscular Yjkalsiwot5735-46-10 06:53:00* Test Item Value Reference Range Interpretation Comments Mean Corpuscular Hemoglobin (test code = 785-6) 30.2 28-32 [facility] [place]Mean Corpuscular Hemoglobin Concent 2019-05-22 06:53:00* Test Item Value Reference Range Interpretation Comments Mean Corpuscular Hemoglobin Concent (test code = 786-4) 35.4 31-35 H [facility] [place]evilleRed Cell Distribution Kbskl6111-33-94 06:53:00* Test Item Value Reference Range Interpretation Comments Red Cell Distribution Width (test code = 75515-2) 13.6 11.7 -14.4 [facility] BeevillePlatelet Nfmjp7990-77-64 06:53:00* Test Item Value Reference Range Interpretation Comments Platelet Count (test code = 777-3) 218 140-360 [facility] [place]evilleNeutrophils (%) (Auto)2019-05-22 06:53:00 * Test Item Value Reference Range Interpretation Comments Neutrophils (%) (Auto) (test code = 12236-0) 72.5 38.7-80.0 [facility] [place]evilleLymphocytes (%) (Auto)2019-05-22 06:53:00 * Test Item Value Reference Range Interpretation Comments Lymphocytes (%) (Auto) (test code = 736-9) 9.4 18.0-39.1 L [facility] [place]evilleMonocytes (%) (Auto)2019-05-22 06:53:00* Test Item Value Reference Range Interpretation Comments Monocytes (%) (Auto) (test code = 5905-5) 11.4 4.4-11.3 H [facility] [place]evilleEosinophils (%) (Auto)2019-05-22 06:53:00 * Test Item Value Reference Range Interpretation Comments Eosinophils (%) (Auto) (test code = 713-8) 5.3 0.0-6.0 [facility] [place]evilleBasophils (%) (Auto)2019-05-22 06:53:00* Test Item Value Reference Range Interpretation Comments Basophils (%) (Auto) (test code = 706-2) 0.3 0.0-1.0 [facility] [place]evilleIM GRANULOCYTES %2019-05-22 06:53:00* Test Item Value Reference Range Interpretation Comments IM GRANULOCYTES % (test code = IM GRANULOCYTES %) 1.1 0.0- 1.0 H [facility] [place]evilleNeutrophils # (Auto)2019-05-22 06:53:00* Test Item Value Reference Range Interpretation Comments Neutrophils # (Auto) (test code = 751-8) 8.2 2.1-6.9 H [facility] BeevilleLymphocytes # (Auto)2019-05-22 06:53:00* Test Item Value Reference Range Interpretation Comments Lymphocytes # (Auto) (test code = 53291-1) 1.1 1.0-3.2 [facility] [place]evilleMonocytes # (Auto)2019-05-22 06:53:00* Test Item Value Reference Range Interpretation Comments Monocytes # (Auto) (test code = 742-7) 1.3 0.2-0.8 H [facility] [place]evilleEosinophils # (Auto)2019-05-22 06:53:00* Test Item Value Reference Range Interpretation Comments Eosinophils # (Auto) (test code = 711-2) 0.6 0.0-0.4 H [facility] [place]evilleBasophils # (Auto)2019-05-22 06:53:00* Test Item Value Reference Range Interpretation Comments Basophils # (Auto) (test code = 704-7) 0.0 0.0-0.1 [facility] BeevilleAbsolute Immature Granulocyte (auto 2019-05-22 06:53:00* Test Item Value Reference Range Interpretation Comments Absolute Immature Granulocyte (auto (hi t code = Absolute Immature Granulocyte (auto) 0.12 0-0.1 H [facility] BeevilleMagnesium Nupan8308-87-74 05:43:00* Test Item Value Reference Range Interpretation Comments Magnesium Level (test code = 92881-4) 1.9 1.3-2.1 [facility] Udiom4874-50-82 05:43:00* Test Item Value Reference Range Interpretation Comments Magnesium Level (test code = 00183-7) 1.9 1.3-2.1 [facility] BeevilleUrine NVS8117-29-54 17:04:00* Test Item Value Reference Range Interpretation Comments Urine WBC (test code = 5821-4) 0-5 0-5 [facility] BeevilleUrine JHS5960-65-91 17:04:00* Test Item Value Reference Range Interpretation Comments Urine RBC (test code = 29173-9) 0-5 0-5 [facility] BeevilleUrine Holnztal8313-75-67 17:04:00* Test Item Value Reference Range Interpretation Comments Urine Bacteria (test code = 93393-3) RARE NONE [facility] BeevilleUrine Epithelial Cybdr7104-30-98 17:04:00 * Test Item Value Reference Range Interpretation Comments Urine Epithelial Cells (test code = 58233-4) RARE NONE [facility] BeevilleUrine DNM8656-34-42 17:04:00* Test Item Value Reference Range Interpretation Comments Urine WBC (test code = 5821-4) 0-5 0-5 [facility] BeevilleUrine ZGC7265-85-78 17:04:00* Test Item Value Reference Range Interpretation Comments Urine RBC (test code = 47260-9) 0-5 0-5 [facility] BeevilleUrine Rwklvvsk9517-80-81 17:04:00* Test Item Value Reference Range Interpretation Comments Urine Bacteria (test code = 41287-2) RARE NONE [facility] BeevilleUrine Epithelial Oebmi5204-53-08 17:04:00 * Test Item Value Reference Range Interpretation Comments Urine Epithelial Cells (test code = 25906-0) RARE NONE [facility] BeevilleUrine Qqpsv4924-90-55 16:53:00* Test Item Value Reference Range Interpretation Comments Urine Color (test code = 5778-6) YELLOW YELLOW [facility] BeevilleUrine Qqyjqbw0398 16:53:00* Test Item Value Reference Range Interpretation Comments Urine Clarity (test code = 25735-1) CLEAR CLEAR [facility] BeevilleUrine Specific Jehzfwy3832-92-39 16:53:00 * Test Item Value Reference Range Interpretation Comments Urine Specific [place] (test code = 5811-5) 1.015 1.010-1.02 5 [facility] BeevilleUrine rH5841-81-93 16:53:00* Test Item Value Reference Range Interpretation Comments Urine pH (test code = 13254-2) 6 5-7 [facility] [place]evilleUrine Leukocyte Jylatgbl2137-73-69 16:53:00* Test Item Value Reference Range Interpretation Comments Urine Leukocyte Esterase (test code = 29728-3) NEGATIVE NEGATIV E [facility] BeevilleUrine Hupzlul9070-06-69 16:53:00* Test Item Value Reference Range Interpretation Comments Urine Nitrite (test code = 69513-6) NEGATIVE NEGATIVE [facility] BeevilleUrine Kjidkoi1221-52-88 16:53:00* Test Item Value Reference Range Interpretation Comments Urine Protein (test code = 61611-8) NEGATIVE NEGATIVE [facility] BeevilleUrine Glucose (UA)2019-05-17 16:53:00* Test Item Value Reference Range Interpretation Comments Urine Glucose (UA) (test code = 88606-6) NEGATIVE NEGATIVE [facility] BeevilleUrine Uwddosg6520-80-27 16:53:00* Test Item Value Reference Range Interpretation Comments Urine Ketones (test code = 34936-4) NEGATIVE NEGATIVE [facility] BeevilleUrine Yarcseuubuuw5776-71-29 16:53:00* Test Item Value Reference Range Interpretation Comments Urine Urobilinogen (test code = 08630-0) 0.2 0.2-1 [facility]evilleUrine Sofvhogij3581-98-41 16:53:00* Test Item Value Reference Range Interpretation Comments Urine Bilirubin (test code = 1977-8) NEGATIVE NEGATIVE [facility] BeevilleUrine Magml9708-11-68 16:53:00* Test Item Value Reference Range Interpretation Comments Urine Blood (test code = 06897-2) NEGATIVE NEGATIVE [facility] BeevilleUrine Vsfpz3497-29-02 16:53:00* Test Item Value Reference Range Interpretation Comments Urine Color (test code = 5778-6) YELLOW YELLOW [facility] [place]evilleUrine Caqqtls3111-46-58 16:53:00* Test Item Value Reference Range Interpretation Comments Urine Clarity (test code = 57713-2) CLEAR CLEAR [facility] BeevilleUrine Specific Iyzkcen0026-99-54 16:53:00 * Test Item Value Reference Range Interpretation Comments Urine Specific [place] (test code = 5811-5) 1.015 1.010-1.02 5 [facility] [place]evilleUrine dH9887-85-86 16:53:00* Test Item Value Reference Range Interpretation Comments Urine pH (test code = 69591-0) 6 5-7 [facility] [place]evilleUrine Leukocyte Qkiqhzkh7406-86-09 16:53:00* Test Item Value Reference Range Interpretation Comments Urine Leukocyte Esterase (test code = 13810-5) NEGATIVE NEGATIV E [facility] BeevilleUrine Mhkqgyt8047-50-21 16:53:00* Test Item Value Reference Range Interpretation Comments Urine Nitrite (test code = 99720-7) NEGATIVE NEGATIVE [facility] [place]evilleUrine Kxshpls3604-06-31 16:53:00* Test Item Value Reference Range Interpretation Comments Urine Protein (test code = 63891-0) NEGATIVE NEGATIVE [facility] BeevilleUrine Glucose (UA)2019-05-17 16:53:00* Test Item Value Reference Range Interpretation Comments Urine Glucose (UA) (test code = 84070-3) NEGATIVE NEGATIVE [facility] BeevilleUrine Rzhbvpi0520-26-28 16:53:00* Test Item Value Reference Range Interpretation Comments Urine Ketones (test code = 44501-0) NEGATIVE NEGATIVE [facility] [place]evilleUrine Snvgbrnxgfec5552-74-86 16:53:00* Test Item Value Reference Range Interpretation Comments Urine Urobilinogen (test code = 12574-5) 0.2 0.2-1 [facility] [place]evilleUrine Seenuuxpf4373-43-45 16:53:00* Test Item Value Reference Range Interpretation Comments Urine Bilirubin (test code = 1977-8) NEGATIVE NEGATIVE [facility] BeevilleUrine Barew3384-84-97 16:53:00* Test Item Value Reference Range Interpretation Comments Urine Blood (test code = 21660-7) NEGATIVE NEGATIVE [facility] BeevilleB-Type Natriuretic Hduuyqy2480-53-60 15:43:00* Test Item Value Reference Range Interpretation Comments B-Type Natriuretic Peptide (test code = 26550-5) 158.3 0-100 H [facility] BeevilleB-Type Natriuretic Vcgvcia1742-64-69 15:43:00* Test Item Value Reference Range Interpretation Comments B-Type Natriuretic Peptide (test code = 82950-9) 158.3 0-100 H [facility] BeevilleCHEST SINGLE (PORTABLE)2019-05-17 15:35:00 [place] [address] Patient Name: PASCUAL WHALEN MR #: [id number] : 1935 Age/Sex: 83/M Req #: [id number] Adm Physician: Ordered by: MONTSE CHI HAR[employer] CONTRACTOR Report #: [id number] Location: ER Room/Bed: Procedure: [id number] DX/CHEST SINGLE (PORTABLE) Exam Date: 05/17/19 Exam [...] 3:39 PM Dictated By: JIMMIE CRUZ MD 1539 Transcribed By: SHOBHA on 05/17/19 1539 COPY TO: MONTSE [employer] CONTRACTOR Creatine Kinase UT8154-47-07 15:34:00* Test Item Value Reference Range Interpretation Comments Creatine Kinase MB (test code = 32389-1) 1.10 0-5.0 [facility] X2545-33-63 15:34:00* Test Item Value Reference Range Interpretation Comments Troponin I (test code = ZJI5849) 0.011 0-0.300 [facility] BeevilleCreatine Kinase FS2059-81-64 15:34:00* Test Item Value Reference Range Interpretation Comments Creatine Kinase MB (test code = 86743-6) 1.10 0-5.0 [facility] M0130-42-61 15:34:00* Test Item Value Reference Range Interpretation Comments Troponin I (test code = LRC9643) 0.011 0-0.300 [facility] BeevilleLactic Acid Yuotv7660-93-66 15:27:00* Test Item Value Reference Range Interpretation Comments Lactic Acid Level (test code = Lactic Acid Level) 20.1 4.5- 19.8 HH Results repeated and called to Jairo Da Silva/ELOISE at 1525 on 05/17/19 by Salty Ortiz. Read back and verified.[facility] [place] Creatine Vebenb1923-24-62 15:27:00* Test Item Value Reference Range Interpretation Comments Creatine Kinase (test code = 2157-6) 57 30-200 [facility] BeevilleLactic Acid Ccexf6547-65-80 15:27:00* Test Item Value Reference Range Interpretation Comments Lactic Acid Level (test code = Lactic Acid Level) 20.1 4.5- 19.8 HH Results repeated and called to Jairo Menon at 1525 on 05/17/19 by Salty Ortiz. Read back and verified.[facility] [place] Creatine Pcqwpk1387-80-40 15:27:00* Test Item Value Reference Range Interpretation Comments Creatine Kinase (test code = 2157-6) 57 30-200 [facility] BeevilleProthrombin Hjzt1360-83-55 15:24:00* Test Item Value Reference Range Interpretation Comments Prothrombin Time (test code = 5902-2) 13.5 11.9-14.5 [facility] BeevilleProthromb Time International Ratio 2019-05-17 15:24:00* Test Item Value Reference Range Interpretation Comments Prothromb Time International Ratio (test code = 6301-6) 0.98 Oral Anticoagulant Therapy INR Values:1. Low Intensity Therapy 1.5 - 2.02 . Moderate Intensity Therapy 2.0 - 3.03. High Intensity Therapy(1) 2.5 - 3. 54. High Intensity Therapy(2) 3.0 - 4.05. Panic Value INR > 5.0 [facility] BeevilleActivated Partial Thromboplast Time 2019-05-17 15:24:00* Test Item Value Reference Range Interpretation Comments Activated Partial Thromboplast Time (test code = 65906-5) 32.0 23.8-35.5 [facility] BeevilleProthrombin Dura2970-48-21 15:24:00* Test Item Value Reference Range Interpretation Comments Prothrombin Time (test code = 5902-2) 13.5 11.9-14.5 [facility] BeevilleProthromb Time International Ratio 2019-05-17 15:24:00* Test Item Value Reference Range Interpretation Comments Prothromb Time International Ratio (test code = 6301-6) 0.98 Oral Anticoagulant Therapy INR Values:1. Low Intensity Therapy 1.5 - 2.02 . Moderate Intensity Therapy 2.0 - 3.03. High Intensity Therapy(1) 2.5 - 3. 54. High Intensity Therapy(2) 3.0 - 4.05. Panic Value INR > 5.0 [facility] BeevilleActivated Partial Thromboplast Time 2019-05-17 15:24:00* Test Item Value Reference Range Interpretation Comments Activated Partial Thromboplast Time (test code = 28939-2) 32.0 23.8-35.5 [facility]
--- OUTSIDE RECORDS SUMMARY | 2020-02-23 17:58 | XMS REPORT | Continuity of Care Document ---
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 Name Role Phone [facility] [employer] Information Exchange Unavailable Un available Problems Problem Status Onset Date Classification Date Reported Comments Source DX: R07.2=PRECORDIAL PAIN DR RIVERA Active 05/02/2017 [place] 782.3 - EDEMA Active 09/14/2013 [facility] [place] Arthritis (disorder) Active Problem 05/17/2017 [facility] [place] Degeneration of intervertebral disc (disorder) Active Problem 05/17/2017 [facility] [place] Diabetes mellitus (disorder) A ctive Problem [facility] [place] [place] Diabetic neuropathy (disorder) Active Problem [facility] [place] [place] Hypertensive disorder, systemic arterial (disorder) Active Problem 05/17/2017 [facility] [place] [place] PRECORDIAL PAIN Active [facility] Medications No Data Provided for This [...] hypokinesis, inferior wall of left ventricle. SL: [id number] 05/14/2017 [place] Abdominal Aorta with runoff CTA [...] Date Comments Source Height 182.88 cm 05/14/2017 [facility] BMI Calculated 32.62 05/14/2017 [facility] Weight 109.091 05/14/2017 [facility] Encounters Location Location Details Encounter Type Encounter Number Reason For Visit Attending Provider ADM Date DC Date Status Source OD [id number] 782.3 - EDEMA GRICELDA RAMSES 09/30/2013 09/30/2013 [address] [place] [facility] [id number] Leia Rivera Jr 05/14/2017 05/15/2017 [facility] Procedures Procedure Code Date Perfomer Comments Source Open reduction and fixation of fracture [id number] [facility] Open reduction and fixation of fracture<sup>1</sup> [id number] as child [facility] Assessment and Plan No Data Provided for This Section Plan of Care No Data Provided for This Section Social History Social History Date Source No data available for this section 05/15/2017 [facility] Family History No Data Provided for This Section Advance Directives No Data Provided for This Section Functional Status No Data Provided for This Section
[2020-02-23] MEDS ORDERED: ONDANSETRON HCL INJ 2MG/ML 2ML 2 MG/ML VIAL IV PRN (18:00)
--- NOTE | 2020-02-23 18:03 | Diagnostic Imaging Report ---
EXAM: CT Abdomen and Pelvis WITHOUT and WITH contrast INDICATION: Urinary retention. Gross hematuria. COMPARISON: None. TECHNIQUE: Abdomen and pelvis were scanned utilizing a multidetector helical scanner from the lung base to the pubic symphysis before and after administration of contrast via Campbell catheter. Coronal and sagittal reformations were obtained. Routine protocol was performed. Scan was performed when during portal venous phase. IV CONTRAST: None. 50 cc Isovue-300 mixed with 500 cc of saline administered via Campbell catheter. ORAL CONTRAST: Water RADIATION DOSE: Total DLP: 1669.24 mGy*cm Estimated effective dose: (DLP x 0.015 x size factor) mSv COMPLICATIONS: None FINDINGS: Examination limited due to the patient's arms along the thorax and upper abdomen. LINES and TUBES: None. LOWER THORAX: Patchy density in the right lung base associated with elevation of the right hemidiaphragm may represent atelectasis versus consolidation. Left basilar atelectasis. Coronary artery calcifications. HEPATOBILIARY: The medial segment of the left hepatic lobe and the anterior segment of the right lobe are hypoplastic/atrophic. No focal hepatic lesions. No biliary ductal dilation. GALLBLADDER: Not clearly identified. A small oval low-attenuation structure identified anterior to the right hepatic lobe on image 37 series 4 may represent underdistended gallbladder. SPLEEN: No splenomegaly. PANCREAS: No focal masses or ductal dilatation. ADRENALS: 0.8 cm left adrenal adenoma on images 60 series 4. KIDNEYS/URETERS: No hydronephrosis. 2.1 cm cyst in the anterior interpolar region of the left kidney on image 67 and 68 series 4. Bilateral perinephric stranding without perinephric fluid collections. Extensive bilateral renal artery calcifications. Punctate calculus versus vascular calcification in the interpolar region of the left kidney on coronal images 70. GI TRACT: No abnormal distention, wall thickening, or evidence of bowel obstruction. Appendix is not visualized. Moderate volume of stool within the colon, particularly within the rectum may reflect constipation. PELVIC ORGANS/BLADDER: Diffuse opacification of the urinary bladder by contrast without filling defects except for the Campbell catheter balloon. There is low-attenuation in the likely mild wall thickening. Enlarged prostate measuring 5.5 x 4.1 cm punctate calcification. LYMPH NODES: No lymphadenopathy. VESSELS: There is severe atherosclerotic disease in the aorta and major arterial branches. PERITONEUM / RETROPERITONEUM: No free air or fluid. BONES: There are severe multilevel degenerative changes in the lumbar spine. SOFT TISSUES: Unremarkable. IMPRESSION: 1. Punctate nonobstructing calculus versus vascular calcification in the interpolar region of the left kidney. No obstructive uropathy. If clinical concern for hematuria remains, consider further evaluation with nonemergent CT abdomen and pelvis hematuria protocol. 2. Mildly enlarged prostate. 3. Mild wall thickening of the urinary bladder versus layering debris. 4. Possible constipation. Signed by: Dr. Triston Bolanos M.D. on 02/23/2020 6:00 PM
--- NOTE | 2020-02-23 18:20 | NUR ---
Per Dr. Henry no redraw on lactic level is needed at this time.
--- NOTE | 2020-02-23 18:22 | NUR ---
Consent for PICC completed and signed with second nurse Garth ANVAS.
--- NOTE | 2020-02-23 19:05 | NUR ---
report given to Ector NAVAS
--- NOTE | 2020-02-23 20:35 | Diagnostic Imaging Report ---
EXAMINATION: CHEST XRAY LINE PLACEMENT INDICATION: S/P LINE PLACEMENT ^Y COMPARISON: None FINDINGS: The apices were not included due to patient's ability to fully cooperate with positioning. TUBES and LINES: Right upper extremity PICC with distal tip projected on the cavoatrial junction, adequate position. LUNGS: Bibasilar subsegmental atelectasis. Mild elevation of the right hemidiaphragm. There is no evidence of pneumonia or pulmonary edema. PLEURA: No pleural effusion or pneumothorax. HEART AND MEDIASTINUM: The cardiomediastinal silhouette is unremarkable. BONES AND SOFT TISSUES: No acute osseous lesion. Soft tissues are unremarkable. UPPER ABDOMEN: No free air under the diaphragm. IMPRESSION: Right upper extremity PICC with distal tip projected on the cavoatrial junction, adequate position. Signed by: Dr. Triston Bolanos M.D. on 02/23/2020 8:32 PM
[2020-02-23] MEDS ORDERED: SODIUM CHLORIDE 0.9% 250ML 250 ML IV ONE (20:45)
[2020-02-23] MEDS: SODIUM CHLORIDE 0.9% 1000ML 1,000 ML IV SCH (21:00)
[2020-02-24] MEDS: FAMOTIDINE 20 MG/2 ML VIAL IV SCH ×3 (03:01→21:30)
[2020-02-24] MEDS: PIPER-TAZ 3.375 GM 50 ML IV SCH ×4 (03:01→21:00)
--- NOTE | 2020-02-24 05:03 | Consultation ---
DATE OF CONSULTATION: Pulmonary Consultation REASON FOR CONSULT: Shortness of breath. HISTORY OF PRESENT ILLNESS: Mr. Velez is an 84-year-old male, was sent from the halfway with penile bleeding. The patient has urinary retention and no urine in the catheter, tried to change the catheter and started having blood clots. He was bleeding from the penis, so he was sent over to the hospital. He lives at [facility]. Nurse did try to change the catheter and could not get it back in. His room air sats were 89%, so he was put on oxygen. He denies cough and shortness of breath. According to the nursing, COVID was tested and it was negative 10 days ago. REVIEW OF SYSTEMS: GENERAL: Denies any fever or chills. HEAD: Denies any head trauma. ENT: Denies any earaches. CVS: Denies any chest pain. RESPIRATORY: No shortness of breath, mild hypoxia. The rest of the review of systems are negative except as in HPI. PAST MEDICAL HISTORY: Hypertension, diabetes, heart disease, chronic kidney disease, peripheral artery disease, and pulmonary embolism. FAMILY AND SOCIAL HISTORY: He does not smoke. Does not drink per the chart. PHYSICAL EXAMINATION: VITAL SIGNS: Temperature 98.3, pulse of 110, blood pressure 120/60, respiratory rate of 18. HEENT: Head is atraumatic and normocephalic. NECK: Supple. CHEST: Clear to auscultation bilaterally. No wheezing. HEART: S1, S2 audible. ABDOMEN: Soft. EXTREMITIES: No pedal edema. NEUROLOGIC: Awake and alert. LABORATORY DATA: Reviewed. Lactic acid is 3.6 to 4.0. BNP 148.7. Chest x-ray not showing any infiltrate. CT abdomen and pelvis was done, which showed nonobstructing calculus, mildly enlarged prostrate. ASSESSMENT AND PLAN: Mr. Velez is an 84-year-old male, presented to the emergency room with penile bleeding. Mild hypoxia, now improved with 2 L oxygen. Continue the patient on oxygen. COVID testing is pending. Lactate is 3.6. The etiology of his lactate is not very clear. At this point, agree with IV azithromycin and Zosyn for possible pneumonia. Thank you for this consult. MD MARITO Ackerman/MIGUELL /[id number]
--- NOTE | 2020-02-24 05:57 | Diagnostic Imaging Report ---
EXAMINATION: CHEST SINGLE (PORTABLE) COMPARISON: Chest x-ray 02/23/2020 INDICATION: ^Y ^PNEUMONIA ^[id number] ^[id number] DISCUSSION: Frontal view of the chest obtained at 0522 hours. HEART AND MEDIASTINUM: The cardiomediastinal silhouette is unremarkable. LINES: Right PICC line terminates in the SVC LUNGS/PLEURA: Stable mild eventration of the right diaphragm. No infiltrates or interstitial edema. Vascular markings are normal. No pleural effusion or pneumothorax. BONES AND SOFT TISSUES: No focal osseous lesion. The soft tissues are normal. IMPRESSION: Stable chest. No acute cardiopulmonary process. Signed by: Dr. Clare Muse MD on 02/24/2020 5:53 AM
[2020-02-24] MEDS: SODIUM CHLORIDE 0.9% 1000ML 1,000 ML IV SCH (07:39)
[2020-02-24 07:53] LABS: BASOPHILS # (AUTO) 0.1 (0.0-0.1); BASOPHILS % 0.2 % (0.0-1.0); HEMATOCRIT 24.7 % (38.2-49.6); HEMOGLOBIN 8.1 g/dL (14.0-18.0); LYMPHOCYTES # (AUTO) 1.1 (1.0-3.2); LYMPHOCYTES % 5.3 % (18.0-39.1); MEAN CORPUSCULAR HGB CONC 32.8 g/dL (31-35); MEAN CORPUSCULAR VOLUME 88.5 fL (81-99); MONOCYTES # (AUTO) 1.8 (0.2-0.8); MONOCYTES % 8.9 % (4.4-11.3); NEUTROPHILS # (AUTO) 16.9 (2.1-6.9); NEUTROPHILS % 84.5 % (38.7-80.0); PLATELET COUNT 334 x10e3/uL (140-360); RED BLOOD COUNT 2.79 x10e6/uL (4.3-5.7); RED CELL DISTRIBUTION WIDTH 14.4 % (11.7-14.4)
[2020-02-24] MEDS: ASPIRIN 81 MG CHEW TAB PO SCH (07:56)
[2020-02-24] MEDS: GEMFIBROZIL 600 MG TAB PO SCH ×2 (07:56→18:01)
[2020-02-24] MEDS: LIOTHYRONINE SODIUM 5 MCG TAB PO SCH (07:56)
[2020-02-24] MEDS: GABAPENTIN 300 MG CAP PO SCH ×2 (07:56→18:01)
--- NOTE | 2020-02-24 07:58 | History and Physical ---
REASON FOR ADMISSION: Sepsis secondary to pneumonia. HISTORY OF PRESENT ILLNESS: The patient is an 84-year-old gentleman, who presented with some shortness of breath, fever, where he lives at a facility, who was found to have some evidence of pneumonia on his chest x-ray and as well as laboratory data sepsis, who has been admitted for further evaluation and treatment. PAST MEDICAL HISTORY: Significant for diabetes, chronic kidney disease stage 3, hypertension, hypothyroidism, severe neuropathy. MEDICATIONS: See MAR. ALLERGIES: NONE. SOCIAL HISTORY: Nonsmoker and nondrinker. . FAMILY HISTORY: Noncontributory. PHYSICAL EXAMINATION: VITAL SIGNS: Temperature is 99.1, pulse 88, blood pressure 110/76, saturations 95% on nasal cannula 2 L. GENERAL: He is in no apparent distress, lying in bed. NECK: Supple. No JVD. No lymphadenopathy. CARDIOVASCULAR: Regular rate and rhythm. LUNGS: Decreased breath sounds bilaterally. ABDOMEN: Good bowel sounds. Soft, nontender. EXTREMITIES: No clubbing or cyanosis. NEUROLOGIC: He moves all extremities x4. ASSESSMENT/PLAN: 1. Sepsis secondary to pneumonia. His COVID-19 testing is negative. So, we will continue his antibiotics and check on culture. 2. Acute respiratory failure with hypoxia. Continue the O2. 3. Diabetes. Continue to monitor sugars. 4. Chronic kidney disease stage 3. Continue to monitor his laboratory data. 5. Hypothyroidism. We will continue with his medication. Please see hospital chart for full details. MD MARVIN Lynn/VASILE /[id number]
--- NOTE | 2020-02-24 08:08 | NUR ---
ORDER FOR NS PUT IN LAST NIGHT BY NURSE CAROLA VERIFIED WITH MD. GIVEN AND DONE. NO FURTHER ORDERS AT THIS TIME
[2020-02-24 08:19] LABS: ALBUMIN 2.4 g/dL (3.5-5.0); ALBUMIN/GLOBULIN RATIO 0.6 (0.8-2.0); ANION GAP 14.5 mmol/L (8-16); CALCIUM 8.6 mg/dL (8.4-10.2); CHOL/HDL RATIO 4.8 (3.9-4.7); CREATININE, SERUM 1.3 mg/dL (0.72-1.25); POTASSIUM 3.5 mmol/L (3.5-5.1)
[2020-02-24 08:54] LABS: CREATINE KINASE MB 1.2 ng/mL (0-5.0)
--- NOTE | 2020-02-24 09:07 | NUR ---
pt had bm twice. pt cleaned throughly. waffle on bed, roll to rt lateral recumbrant. pt cleaned, clean gown and fresh sheets. hob 45 degree's. pt aaox4. hard of hearing noted. pt vss. o2 sats 100% on nc 4 lpm. pt given multiple glasses of water. table at bedside with water. phone on bed table. pillow for comfort. lights dimmed, arnett emptied. remains to gravity. pt seen by dr simmons. sr.
[2020-02-24] MEDS ORDERED: MAGNESIUM HYDROXIDE 30 ML UDC PO PRN (09:15)
[2020-02-24 10:19] LABS: FREE THYROXINE INDEX 1.6529 (1.4-3.8); THYROID STIMULATING HORMONE 1.355 uIU/mL (0.350-4.940)
[2020-02-24] MEDS: ALBUTEROL/IPRATROPIUM 3 ML NEB NEB SCH ×2 (12:00→20:00)
--- NOTE | 2020-02-24 13:05 | Consultation ---
DATE OF CONSULTATION: REASON FOR CONSULTATION: Shortness of breath. HISTORY OF PRESENT ILLNESS: This is an 84-year-old white male, who was sent from a snf with bleeding from his penis. The patient has history of urinary retention. He has a catheter, but there was no urine. Apparently, there was blood clot. He was sent to the emergency room. The patient had a negative COVID-19 in the last 10 days. He was sent to emergency room. In the emergency room, he was hypoxemic. He is being admitted for sepsis. The patient who is lying in bed comfortably. He does have history of hypertension, diabetes mellitus, neuropathy, coronary artery disease, chronic kidney disease, peripheral vascular disease, and pulmonary embolism. PAST SURGICAL HISTORY: Campbell catheter. ALLERGIES: NKA. SOCIAL HISTORY: There is no smoking, drug abuse, or alcohol abuse. He is from snf. FAMILY HISTORY: Noncontributory. REVIEW OF SYSTEMS: He is just weak, not feeling well, short of breath. No urine output, but the Campbell catheter was changed, now there is urine in the catheter. LABORATORY DATA: Reviewed. Since he came here, his blood cultures showing a gram-negative rods. His chest x-ray showed no acute finding. He had CT abdomen and pelvis showed a nonobstructing calculus, mildly enlarged prostate. His COVID-19 here was negative. Sodium 136, potassium 3.5, creatinine 1.3 with albumin 2.4. MEDICATION LIST: He is on aspirin, Neurontin, azithromycin, Imdur, and Zosyn. PHYSICAL EXAMINATION: GENERAL: Currently alert and oriented. Does not seem to be in acute distress. VITAL SIGNS: Stable, currently afebrile. HEENT: He is not icteric. NECK: Supple. CHEST: Clear. HEART: S1 and S2. No S3, S4, or murmurs. ABDOMEN: Soft. Bowel sounds present. No tenderness. EXTREMITIES: No edema. SKIN: No rash. IMPRESSION: Sepsis secondary to gram-negative. Source is probably pyelonephritis. Continue Zosyn for the time being. Await culture and sensitivity. Discontinue azithromycin. Recheck CBC. Recheck chem panel. Acute kidney injury, culture with sepsis. Recheck chemistry panel. Continue supportive care. Other medical problem as above. We will follow. MD JEET Beck/VASILE /[id number]
[2020-02-24] MEDS: ISOSORBIDE MONONITRATE 30 MG TAB CR PO SCH (13:13)
--- NOTE | 2020-02-24 14:19 | NUR ---
DR GENTILE HERE TO SEE PT
--- NOTE | 2020-02-24 15:00 | NUR ---
PT ALERT RESP EVEN AND UNLABORED AT THIS TIME NO DISTRESS NOTED AT THIS TIME. BED IS IN LOWEST POSITION, BOTH SIDE RAILS ARE UP, CALL LIGHT IS WITHIN EASY REACH, WILL CONTINUE TO MONITOR.
[2020-02-24 16:53] VITALS: BP 115/64
[2020-02-24] MEDS: DOCUSATE SODIUM 100 MG CAP PO SCH (18:01)
[2020-02-24 18:54] LABS: CREATINE KINASE MB 2.1 ng/mL (0-5.0)
--- NOTE | 2020-02-24 19:16 | NUR ---
REPORT GIVEN TO ON COMING NURSE, BEDSIDE ROUNDS COMPLETE, PT STABLE AT THIS TIME.
[2020-02-24 20:11] VITALS: BP 115/52
[2020-02-24 21:00] VITALS: BP 115/52
[2020-02-24] MEDS ORDERED: DOXAZOSIN MESYLATE 2 MG TAB PO SCH (21:00)
[2020-02-24] MEDS: HEPARIN SOD (PORCINE) 5,000 UNIT/ML VIAL SC SCH (21:00)
[2020-02-25] VITALS (8 sets, daily range): BP systolic 112–125; BP diastolic 42–55
[2020-02-25] MEDS: ALBUTEROL/IPRATROPIUM 3 ML NEB NEB SCH ×4 (01:55→19:56)
[2020-02-25] MEDS: PIPER-TAZ 3.375 GM 50 ML IV SCH ×4 (02:00→20:00)
[2020-02-25] MEDS ORDERED: TRAMADOL HCL 50 MG TAB PO PRN (05:15)
--- NOTE | 2020-02-25 05:42 | Diagnostic Imaging Report ---
EXAMINATION: CHEST SINGLE (PORTABLE) COMPARISON: Chest x-ray 02/24/2020 INDICATION: HAP ^hap ^[id number] ^0450 DISCUSSION: Frontal view of the chest obtained at 0419 hours. HEART AND MEDIASTINUM: The cardiomediastinal silhouette is unremarkable. LINES: Right PICC line terminates in the SVC LUNGS/PLEURA: Stable eventration of the right diaphragm. No pneumonia or pulmonary edema. No pleural effusion or pneumothorax. BONES AND SOFT TISSUES: Stable. IMPRESSION: Stable chest. No active disease. Signed by: Dr. Clare Muse MD on 02/25/2020 5:39 AM
[2020-02-25 06:36] LABS: BASOPHILS % 0.4 % (0.0-1.0); EOSINOPHILS # (AUTO) 0.1 (0.0-0.4); EOSINOPHILS % 0.7 % (0.0-6.0); HEMATOCRIT 25.2 % (38.2-49.6); HEMOGLOBIN 8.2 g/dL (14.0-18.0); LYMPHOCYTES # (AUTO) 0.8 (1.0-3.2); LYMPHOCYTES % 7.4 % (18.0-39.1); MEAN CORPUSCULAR HEMOGLOBIN 28.6 pg (28-32); MEAN CORPUSCULAR HGB CONC 32.5 g/dL (31-35); MEAN CORPUSCULAR VOLUME 87.8 fL (81-99); MONOCYTES # (AUTO) 1.4 (0.2-0.8); MONOCYTES % 12.5 % (4.4-11.3); NEUTROPHILS # (AUTO) 8.7 (2.1-6.9); NEUTROPHILS % 77.6 % (38.7-80.0); PLATELET COUNT 294 x10e3/uL (140-360); RED BLOOD COUNT 2.87 x10e6/uL (4.3-5.7); RED CELL DISTRIBUTION WIDTH 14.1 % (11.7-14.4)
[2020-02-25 06:59] LABS: ALBUMIN 2.5 g/dL (3.5-5.0); ALBUMIN/GLOBULIN RATIO 0.7 (0.8-2.0); ANION GAP 12.9 mmol/L (8-16); CALCIUM 8.7 mg/dL (8.4-10.2); CREATININE, SERUM 1.18 mg/dL (0.72-1.25); MAGNESIUM 2.1 MG/DL (1.3-2.1)
[2020-02-25 07:02] LABS: POTASSIUM 2.9 mmol/L (3.5-5.1)
[2020-02-25] MEDS: LIOTHYRONINE SODIUM 5 MCG TAB PO SCH (09:00)
[2020-02-25] MEDS: GEMFIBROZIL 600 MG TAB PO SCH ×2 (09:00→16:45)
[2020-02-25] MEDS: ASPIRIN 81 MG CHEW TAB PO SCH (09:00)
[2020-02-25] MEDS: FAMOTIDINE 20 MG/2 ML VIAL IV SCH ×2 (09:00→21:39)
[2020-02-25] MEDS: POTASSIUM CHLORIDE 20 MEQ TAB CR PO SCH ×2 (09:00→12:56)
[2020-02-25] MEDS: ISOSORBIDE MONONITRATE 30 MG TAB CR PO SCH (09:00)
[2020-02-25] MEDS: GABAPENTIN 300 MG CAP PO SCH ×2 (09:00→16:45)
[2020-02-25] MEDS: DOCUSATE SODIUM 100 MG CAP PO SCH ×2 (09:00→16:45)
[2020-02-25] MEDS: HEPARIN SOD (PORCINE) 5,000 UNIT/ML VIAL SC SCH ×2 (10:42→21:00)
--- NOTE | 2020-02-25 11:53 | Progress Note ---
DATE: SUBJECTIVE: The patient is seen and evaluated. Available labs and notes reviewed. Discussed with Dr. Jones. Please refer to chart for more information. REVIEW OF SYSTEMS: No nausea, vomiting, fever, chills, chest pain, shortness of breath, headache, rash, dysuria, hematuria. OBJECTIVE: VITAL SIGNS: Temperature 98.8, pulse 68, respirations 19, blood pressure 125/55. GENERAL: Alert and oriented, comfortable in bed in no acute distress. CV: S1 and S2. CHEST: Equal expansion. Clear to auscultation. No acute distress. ABDOMEN: Soft, obese, nontender. Bowel sounds positive in all 4 quadrants. HEENT: Moist. No pallor. No JVD. EXTREMITIES: Seems to be improving. The edema on his legs. MEDICATIONS: The patient is on Zosyn from Infectious Disease point of view. LABORATORY STUDIES: White count 11.16, improved from 20.05, hemoglobin 8.2, platelet 294. Sodium 135, potassium 2.9, creatinine 1.18. SEROLOGY: Coronavirus PCR not detected on 02/23/2020. MICROBIOLOGY: Blood culture, gram-negative rods x1 and another blood culture is negative on 02/23/2020. Urine culture 02/23/2020 is in progress. RADIOLOGY STUDIES: Chest x-ray from today showed stable chest, no active disease. ASSESSMENT/PLAN: 1. Gram-negative bacteremia, pending identification and sensitivity, also patient with urine culture in progress and pending. CT of abdomen and pelvis showed punctate nonobstructing calculus versus vascular calcification in an interpolar region of the left kidney. No obstructive uropathy. Mildly enlarged prostate. Mild wall thickening of the urinary bladder versus layering debris and possible constipation. Leukocytosis improved. Electrolyte abnormalities per others. 2. Anemia. 3. The patient needs cystoscopy most likely, per note hematuria resolved. Urine is clear, light yellow. Follow up with the cultures, remains on Zosyn. Further management of this patient is based on daily findings on laboratory and physical examination. Discussed with Dr. Jones in details. Please refer to chart for more information. Dictated by Mauricio Maurice PA-C (Al) Gerardo Jones MD /MODL :42:17 /[id number]
--- NOTE | 2020-02-25 19:30 | NUR ---
walking rounds complete, pt stable at this time.
[2020-02-26] VITALS (7 sets, daily range): BP systolic 110–125; BP diastolic 51–74
[2020-02-26] MEDS: ALBUTEROL/IPRATROPIUM 3 ML NEB NEB SCH ×4 (01:15→19:53)
[2020-02-26] MEDS: PIPER-TAZ 3.375 GM 50 ML IV SCH (02:43)
--- NOTE | 2020-02-26 07:00 | NUR ---
BEDSIDE SHIFT REPORT ROUNDS FROM ELOISE HER. PT DENIES NEEDS AT THIS TIME.
[2020-02-26] MEDS: MEROPENEM 500MG/ NS 50ML 50 ML IV SCH ×3 (09:00→15:49)
[2020-02-26 09:31] LABS: BASOPHILS % 0.3 % (0.0-1.0); EOSINOPHILS # (AUTO) 0.1 (0.0-0.4); EOSINOPHILS % 0.7 % (0.0-6.0); HEMOGLOBIN 8.2 g/dL (14.0-18.0); LYMPHOCYTES % 10.6 % (18.0-39.1); MEAN CORPUSCULAR HEMOGLOBIN 29.2 pg (28-32); MEAN CORPUSCULAR HGB CONC 32.8 g/dL (31-35); MONOCYTES % 10.5 % (4.4-11.3); NEUTROPHILS # (AUTO) 6.9 (2.1-6.9); NEUTROPHILS % 76.1 % (38.7-80.0); PLATELET COUNT 268 x10e3/uL (140-360); RED BLOOD COUNT 2.81 x10e6/uL (4.3-5.7); RED CELL DISTRIBUTION WIDTH 13.9 % (11.7-14.4)
[2020-02-26] MEDS: ASPIRIN 81 MG CHEW TAB PO SCH (09:48)
[2020-02-26] MEDS: FAMOTIDINE 20 MG/2 ML VIAL IV SCH (09:48)
[2020-02-26] MEDS: DOCUSATE SODIUM 100 MG CAP PO SCH ×2 (09:48→15:49)
[2020-02-26] MEDS: LIOTHYRONINE SODIUM 5 MCG TAB PO SCH (09:48)
[2020-02-26] MEDS: GABAPENTIN 300 MG CAP PO SCH ×2 (09:49→15:49)
[2020-02-26] MEDS: ISOSORBIDE MONONITRATE 30 MG TAB CR PO SCH (09:49)
[2020-02-26] MEDS: GEMFIBROZIL 600 MG TAB PO SCH ×2 (09:49→15:49)
[2020-02-26 09:53] LABS: ALBUMIN 2.7 g/dL (3.5-5.0); ALBUMIN/GLOBULIN RATIO 0.7 (0.8-2.0); ANION GAP 18.6 mmol/L (8-16); CALCIUM 8.8 mg/dL (8.4-10.2); CREATININE, SERUM 1.23 mg/dL (0.72-1.25); MAGNESIUM 2.1 MG/DL (1.3-2.1); POTASSIUM 3.6 mmol/L (3.5-5.1)
[2020-02-26] MEDS: HEPARIN SOD (PORCINE) 5,000 UNIT/ML VIAL SC SCH (09:57)
--- NOTE | 2020-02-26 11:50 | Progress Note ---
DATE: SUBJECTIVE: The patient is seen and evaluated with the nurse in a room. Available labs and notes reviewed. Discussed with the patient. Discussed with the nurse. REVIEW OF SYSTEMS: The patient complained of constipation, however, he is tolerating antibiotics so far. No nausea, vomiting, fever, chills, chest pain, shortness of breath, headache, rash, dysuria. PHYSICAL EXAMINATION: VITAL SIGNS: Temperature 97.7, pulse 75, respiration 20, and blood pressure 115/59. GENERAL: Alert and oriented, in no acute distress. CV: S1-S2. CHEST: Equal expansion. Clear to auscultation. No acute distress. ABDOMEN: Soft and nontender. No distention. HEENT: Moist. No pallor. No JVD. EXTREMITIES: No edema, move all. MEDICATIONS: Medication reviewed. The patient was on Zosyn and it is now changed to Merrem 500 mg IV piggyback q.6 hours. LABORATORY STUDIES: White count 9.05, hemoglobin 8.2, platelet 268. Sodium 134, potassium 3.6, creatinine 1.23. Serology: Coronavirus PCR 02/23/2020, negative. Microbiology; urine occult blood culture came back with ESBL E coli, which is intermediate to Zosyn and sensitive to Merrem. RADIOLOGY: No new radiology studies available. ASSESSMENT AND PLAN: 1. ESBL E coli bacteremia sensitivity noted. Antibiotics changed to Merrem. The patient with nonobstructing calculus versus vascular calcification in interpolar region of the left kidney without any obstructive uropathy. The patient has a large prostate on a CAT scan and with mild thickening of his urinary bladder versus layering degrees and possible constipation. 2. Constipation. 3. Hyperkalemia per others. 4. Peripheral neuropathy. 5. Hypertension. 6. The patient also been seen by Urology. 7. Hematuria, resolved. Continue with Merrem. Current to monitor the patient. Clinically, follow with the labs. Discussed with Dr. Jones in details. Please refer to chart for more information. Dictated by Mauricio Maurice PA-C (Al) Gerardo Jones MD /MODL /[id number]
--- NOTE | 2020-02-26 12:22 | NUR ---
Pt. expressed no spiritual or emotional concerns at this time. Program Management Specialist STEFFI Boyd, provided hospitality, and information on how to reach test and research reactor operator, if needed. No need to follow at this time. BALDOMERO MACIAS Program Management Specialist Spiritual Care Department O: [phone]
--- NOTE | 2020-02-26 15:47 | NUR ---
Nutrition Intervention Note RD Recommendation(s) for Physician: - Continue current diet as ordered - Recommend Anthony BID to promote wound healing Plan of Care: RD following, monitoring for tolerance and adequacy Nutrition reason for involvement: pressure ulcer RD Assessment (02/26/20) Pt is an 84 year old male admitted with gross hematuria, hypoxemia, and pneumonia. Pt stated he has been eating all of his meals. Pt mentioned he usually weighs 214 lbs, however, pt currently has a weight of 235 lbs in chart. No N/V noted or chewing/swallowing issues. Will continue to monitor Principal Problems/Diagnoses: gross hematuria, hypoxemia, pneumonia PMH: diabetes, chronic kidney disease stage 3, hypertension, hypothyroidism, severe neuropathy. GI: soft, non-tender, large abdomen Skin: stage 2 sacral pressure ulcer Labs: (02/25) Na 134, K 3.6, BUN 21, Cr 1.23, Glu 146 Meds: meropenem, colace, pepcid, milk of magnesia, zofran Ht: 73 inches Wt: 235 lbs BMI: 31.0 kg/m2 IBW: 184 lbs Malnutrition Evaluation (02/26/20) The patient does not meet criteria for a specified degree of malnutrition at this time. Will re-evaluate at follow-up as appropriate. Nutrition Prescription (Diet Order): cardiac diet Estimated Nutritional Needs: 1584-7697 calories/day (22-25 kcal/kg IBW) 125-167 g protein/day (1.5-2 g pro/kg IBW) Diet Adequacy: Meeting calorie needs, Meeting protein needs Tolerance: Tolerating PO Diet Education Needs Assessment: Pt declined the need for diet education . Nutrition Care Level: low Nutrition Diagnosis: Increased nutrient needs related to increased demand for protein and kcal as evidenced by stage 2 sacral pressure ulcer. Goal: Patient will meet 75-100% of estimated needs by follow up Progress: N/A Interventions: -modified diet, Commercial beverage Monitoring/Evaluation: -Total energy intake, Total protein intake, Modified diet, Liquid supplement, Weight change Signed: Samreen Barboza RD, LD
--- NOTE | 2020-02-26 17:14 | NUR ---
[facility] FACILITY DISCHARGE INFORMATION PATIENT HAS BEEN ACCEPTED TO: NAME: SAM[facility] [address]ESS: [id number] [facility] ACCEPTING [employer] SUPERVISOR: [place] ACCEPTING MD: FUAD ROOM: 149 NURSE CALL REPORT TO: [phone] IMM SIGNED AND OBTAINED (if applicable): IMM THE FOLLOWING DOCUMENTS MUST ACCOMPANY PATIENT FOR TRANSFER: COPIED CHART: PACKET
--- NOTE | 2020-02-26 17:19 | NUR ---
WOUND CARE SCREENING CONSULT FOR 84 YO MALE ADMITTED TO [facility] WITH A PRESENT HX GROSS HEMATURIA, HYPOXEMIA, PNEUMONIA. GORDON 15 ON MODERATE PUP STATUS AND INTERVENTIONS SURFACE: REGULAR VISCO. LABS: WBC-9.05 HGB- 8.2 POC GLUCOSE- 176 ALBUMIN: 2.7 SKIN ASSESSMENT COMPLETED, PATIENT PRESENTS WITH: 1)STAGE II PRESSURE ULCER TO SACRUM MEASURING 4 CM X 5.2 CM X 0.2 CM; 90% PINK GRANULATION; 10 %YELLOW SLOUGH. MINIMAL SEROSANGUINEOUS DRAINAGE. 2)RIGHT ANTERIOR HALLUX UNSTAGEABLE ULCER MEASURING 0.8 CM X 0.3 CM X 0.1 CM; COVERED IN 100% ESCHAR. 3)RIGHT POSTERIOR HALLUX UNSTAGEABLE ULCER MEASURING 1.2 CM X 1.3 CM X 0.1 CM; COVERED IN 100% ESCHAR. RECOMMENDATIONS: NURSING TO CLEAN STAGE II PRESSURE ULCER WITH NORMAL SALINE, PAT DRY WITH 4X4 GAUZE, APPLY VENELEX, AND COVER WITH ALLEVYN FOAM. NURSING TO CLEAN POSTERIOR AND ANTERIOR HALLUX UNSTAGEABLE ULCERS WITH NORMAL SALINE, AND PAINT WITH BETADINE DAILY. NURSING TO APPLY AN ALTERNATING PRESSURE MATTRESS. NURSING TO CONTINUE TO OFFLOAD FEET AND HEELS AT ALL TIMES WITH PILLOW SUSPENSION WHEN IN BED. NURSING TO CONTINUE WITH MODERATED PUP STATUS INTERVENTIONS. NURSING TO ASSIST PT OUT OF BED FOR MEALS NEEDED. NURSING TO CONTINUE TO ASSIST WITH PT NUTRITIONAL SUPPLEMENTS TO ENSURE PROPER REQUIREMENTS FOR HEALING. NURSING TO RE- CONSULT WOUND CARE NEEDED. Addendum: 02/26/20 at 1724 by Tata Elizabeth RN Amended: Links added.
--- NOTE | 2020-02-26 17:30 | NUR ---
THIS NURSE INFORMED PT HAS A BED. WILL ENLIST HELP IF ABLE. INFORMATION PASSED ON TO STEPHON.
--- NOTE | 2020-02-26 18:00 | NUR ---
TRANSFER ORDER FROM DR. PEARCE IF ANTIBIOTICS WERE SET UP FOR PT. THIS NURSE TOLD HIM THAT RELAY SHOP TESTER GIBRAN TOLD THIS NURSE THAT DR. JACK HAD ALREADY SET THEM UP FOR PT AT THE [facility].
[2020-02-27] MEDS ORDERED: BALSAM PERU/CASTOR OIL 60 GM OINT...G. TP SCH (09:00)
--- NOTE | 2020-03-20 08:48 | Discharge Summary ---
DISCHARGE DIAGNOSES: 1. Sepsis secondary to pneumonia. 2. Acute respiratory failure with hypoxia. 3. Urinary tract infection. HISTORY OF PRESENT ILLNESS AND HOSPITAL COURSE: The patient is a gentleman, who presented with fever, shortness of breath, hypoxia. He is found to have pneumonia and evidence of urinary tract infection. His blood culture did grow out ESBL E coli. He was seen by Infectious Disease, who felt like the patient needed continued IV antibiotics, so therefore [facility] for continuation of his IV antibiotics, but he felt and did much better by the time he was transferred. Please see hospital chart for full details. MD MARVIN Lynn/VASILE /[id number]
== END 2020-02-26 19:30 | DRG 871 ==
LOC: ER 13:34 → ERHOLD 17:49 → MED/SURG2 02-24 15:26
PROVIDERS: ADMIT Internal Medicine; ATTEND Internal Medicine
PROC: 02HV33Z Insertion of Infusion Device into Superior Vena Cava, Percutaneous Approach (ICD-10-PCS; principal; 2020-02-23)
DX: A41.9 Sepsis, unspecified organism (principal); J18.9 Pneumonia, unspecified organism; J96.01 Acute respiratory failure with hypoxia; N12 Tubulo-interstitial nephritis, not specified as acute or chronic; Z16.12 Extended spectrum beta lactamase (ESBL) resistance; E11.22 Type 2 diabetes mellitus with diabetic chronic kidney disease; I12.9 Hypertensive chronic kidney disease with stage 1 through stage 4 chronic kidney disease, or unspecified chronic kidney disease; N18.3 Chronic kidney disease, stage 3 (moderate); E03.9 Hypothyroidism, unspecified; A41.50 Gram-negative sepsis, unspecified; Z03.818 Encounter for observation for suspected exposure to other biological agents ruled out; E87.5 Hyperkalemia; E11.42 Type 2 diabetes mellitus with diabetic polyneuropathy; K59.00 Constipation, unspecified; B96.20 Unspecified Escherichia coli [E. coli] as the cause of diseases classified elsewhere; D64.9 Anemia, unspecified; E27.8 Other specified disorders of adrenal gland; R31.0 Gross hematuria
CPT/HCPCS: 36415; 36569; 36600; 71045; 74178; 80053; 80061; 81001; 82550; 82553; 82948; 83605; 83735; 83880; 84436; 84443; 84479; 84484; 85025; 85610; 85730; 86850; 86900; 87040; 87071; 87086; 87186; 87205; 87635; 93005; 93306; 97139; 99251; 99285; J0456; J1644; J2543; J7030; J7040; Q9967